=== PATIENT | female | born 1975 | race Caucasian/White ===

== ENCOUNTER 2017-05-16 14:25 | Observation (INO) ==
[2017-05-16 15:20] LABS: Basophils % 0.5 %; Eosinophils # 0.1 K/mcL (0.0-0.6); Eosinophils % 1.6 %; Hematocrit 44.3 % (35.3-44.9); Hemoglobin 14.6 g/dL (11.5-15.4); Immature Granulocytes % 0.2 % (0-4); Lymphocytes # 2.9 K/mcL (0.6-4.6); Lymphocytes % 33.3 %; Mean Corpuscular Hemoglobin 27.1 pg (28.0-33.3); Mean Corpuscular Volume 82.2 fL (83.0-100.0); Monocytes # 0.5 K/mcL (0.0-1.3); Monocytes % 5.2 %; Neutrophils # 5.2 K/mcL (1.6-8.9); Platelet Count 180 K/mcL (140-400); Red Blood Count 5.39 M/mcL (3.82-4.97); Red Cell Distribution Width 13.5 % (11.5-14.5); Segmented Neutrophils % 59.2 %
[2017-05-16 15:33] LABS: BUN/Creatinine Ratio 21 (6-26); Blood Urea Nitrogen 18 mg/dL (7-20); Calcium 9.7 mg/dL (8.6-10.8); Carbon Dioxide 27 mEq/L (19-29); Chloride 98 mEq/L (98-109); Glucose 370 mg/dL (70-99); Osmolality,Calculated 293 (280-300); Potassium 4.3 mEq/L (3.5-4.5); Sodium 133 mEq/L (136-145); eGFR For African Americans > 60 (> 60); eGFR For Non-African Americans > 60 (> 60)
[2017-05-16 15:41] LABS: INR 1.8; Prothrombin Time 19.9 Seconds (9.4-12.1)
[2017-05-16 15:44] LABS: Activated Partial Thrombo Time 32.1 Seconds (26.0-36.0)
[2017-05-16] MEDS ORDERED: Aspirin 81 MG TAB.CHEW PO ONE (16:12)
--- NOTE | 2017-05-16 16:41 | Emergency Department Note ---
Disposition Clinical Impression: Unstable angina Disposition: Admitted As Inpatient Referrals: Norris Franz MD [Primary Care Provider] - Forms: ED Satisfaction Letter Chest Pain HPI - General Chief Complaint: ED Chest Pain Stated Complaint: chest pain Time Seen by Provider: 05/16/17 14:39 Source: patient Limitations: no limitations Vital Signs Reviewed: Yes Nursing Notes Reviewed: Yes - History of Present Illness Pt complaint: chest pain Onset (ago): hour(s) (2) Duration: constant Onset: during rest Pain Location: left chest Severity scale (1-10): 9 Quality: heaviness Pain Radiation: none Improves with: nitroglycerin Worsens with: nothing Associated symptoms: Denies: nausea, vomiting, diaphoresis - Related Data Home Medications Medication Instructions Recorded Confirmed Acetaminophen/Butalbital/Caffe 1 each PO 02/19/16 [Fioricet] Atorvastatin Calcium [Lipitor] 02/19/16 Cyclobenzaprine [Flexeril] 02/19/16 Diclofenac Sodium [Voltaren] 1 appl TP QID 02/19/16 02/19/16 Duloxetine HCl [Cymbalta] 60 mg PO 02/19/16 Ergocalciferol (VITAMIN D2) 50,000 unit PO 02/19/16 [Vitamin D2 (50,000 UNIT)] Esomeprazole Magnesium [Nexium] 20 mg PO 02/19/16 Furosemide [Lasix] 20 mg PO 02/19/16 Gabapentin [Neurontin] 400 mg PO 02/19/16 Insulin ASPART [Novolog Flexpen] 100 unit SQ 02/19/16 Insulin Glargine,Hum.rec.anlog 100 unit SQ 02/19/16 [Lantus Solostar] Levothyroxine [Synthroid] 125 mcg PO 02/19/16 Liraglutide [Victoza 2-Raphael] 02/19/16 02/19/16 Loratadine [Claritin] 10 mg PO 02/19/16 Metoprolol [Lopressor] 25 mg PO 02/19/16 Nitroglycerin [Nitrostat] 0.6 mg SL 02/19/16 Promethazine [Phenergan] 25 mg PO 02/19/16 Ranitidine HCl [Zantac] 150 mg PO 02/19/16 Trazodone HCl 150 mg PO 02/19/16 Warfarin [Coumadin] 5 mg PO 02/19/16 Previous Rx's Medication Instructions Recorded Diclofenac Sodium [Voltaren] 1 appl TP QID PRN #100 gm 02/19/16 traMADol [Ultram] 50 mg PO QID PRN #16 tablet 04/22/16 OxyCODONE/APAP 5/325 [Percocet 1 each PO Q6HR #6 tablet 08/11/16 5/325 MG] traMADol [Ultram] 50 mg PO TID #10 tablet 09/22/16 Oxycodone HCl/Acetaminophen 1 - 2 each PO Q6H PRN #15 tablet 11/04/16 [Percocet 5-325 mg Tablet] Morphine Immed Rel [Morphine 30 mg PO Q8HR #9 tablet 02/08/17 Sulfate] Ondansetron HCl [Zofran] 4 mg PO Q8HR PRN #15 tablet 04/18/17 OxyCODONE/APAP 5/325 [Percocet 1 each PO Q6HR PRN #8 tablet 04/18/17 5/325 MG] Allergies Allergy/AdvReac Type Severity Reaction Status Date / Time hydrocodone [From Vicodin] Allergy Swelling Verified 04/21/17 19:19 of Lip/Tongue/Throat All systems ED: reviewed and negative except as stated. Constitutional: Denies: fever, chills, weakness Gastrointestinal: Denies: nausea, vomiting Chest Pain PMH - Past Medical History Medical history: Reports: atrial fibrillation, DVT, diabetes, hypertension, pulmonary embolus, thyroid disease Surgical history: Reports: herniorrhaphy, orthopedic, other, other Psychiatric history: Reports: anxiety, depression [employer] history: Reports: no [employer] history - Social History Smoking Status: Never smoker Alcohol use: Reports: none Drug use: Reports: none Physical Exam - General Limitations: no limitations General appearance: alert, in no apparent distress - Head Head exam: atraumatic, normocephalic, normal inspection - Eye Eye exam: Present: normal appearance, PERRL, EOMI - Expanded Eye Exam Pupils: Left: reactive - ENT ENT exam: normal exam, normal oropharynx, mucous membranes moist - Expanded ENT Exam External ear exam: Present: normal external inspection Mouth exam: Present: normal external inspection Teeth exam: Present: normal inspection Throat exam: Present: normal inspection - Neck Neck exam: Present: normal inspection, full ROM, trachea midline - Chest Chest inspection: Present: normal inspection, symmetric chest wall rise - Respiratory Respiratory exam: Present: normal lung sounds bilaterally - Cardiovascular Cardiovascular exam: Present: regular rate, normal rhythm, normal heart sounds - Abdominal Exam Abdominal exam: Present: soft, Non-Tender. Absent: tenderness, distention, guarding, rebound, rigidity - Extremities Exam Extremities exam: Present: normal inspection, full ROM. Absent: tenderness, pedal edema - Expanded Upper Extremity Exam Shoulder exam: Present: normal inspection, full ROM Arm exam: Present: normal inspection, full ROM Elbow exam: Present: normal inspection, full ROM Forearm/Wrist exam: Present: normal inspection, full ROM Hand exam: Present: normal inspection, full ROM Vascular exam: Normal: capillary refill, radial pulse - Expanded Lower Extremity Exam Hip/Pelvis exam: Present: normal inspection, full ROM Upper leg exam: Present: normal inspection, full ROM Knee exam: Present: normal inspection, full ROM Lower leg exam: Present: normal inspection, full ROM Ankle exam: Present: normal inspection, full ROM Foot/toe exam: Present: normal inspection, full ROM Neurovascular/Tendon exam: Absent: motor deficit, sensory deficit, tendon deficit - Back Exam Back exam: Present: normal inspection, full ROM. Absent: tenderness - Neurological Exam Neurological exam: Present: alert, oriented X3 - Expanded Neurological Exam Patient oriented to: Present: person, place, time Coma Scale Eye Opening: Spontaneous Coma Scale Motor Response: Obeys Commands Coma Scale Verbal Response: Oriented Coma Scale Total: 15 - Psychiatric Psychiatric exam: Present: normal affect, normal mood - Skin Skin exam: Present: warm, dry, intact, normal color Course - Consultations Consultation #1: dr. chatterjee, hold coumadin [facility] tomorrow Time: 16:40 Vital Signs Temperature 99.0 F 05/16/17 14:28 Pulse Rate 84 05/16/17 14:28 Respiratory Rate 18 05/16/17 14:28 Blood Pressure 126/81 05/16/17 14:28 O2 Sat by Pulse Oximetry 97 05/16/17 14:28 Temperature 99.0 F 05/16/17 14:28 Pulse Rate 84 05/16/17 14:28 Respiratory Rate 18 05/16/17 14:28 Blood Pressure 126/81 05/16/17 14:28 O2 Sat by Pulse Oximetry 97 05/16/17 15:14 Oxygen Delivery Oxygen Delivery Room Air Chest Pain - Medical Records Medical records reviewed: Yes I reviewed the patient's medical records. - Lab Data Lab results reviewed: Yes I reviewed the patient's lab results. Result diagrams: 05/16/17 15:15 05/16/17 15:15 Lab Results 05/16/17 05/16/17 05/16/17 Range/Units 15:15 15:15 15:15 WBC 8.8 (4.3-11.1) K/mcL RBC 5.39 H (3.82-4.97) M/mcL Hgb 14.6 (11.5-15.4) g/dL Hct 44.3 (35.3-44.9) % MCV 82.2 L (83.0-100.0) fL MCH 27.1 L (28.0-33.3) pg MCHC 33.0 (31.6-35.5) g/dL RDW 13.5 (11.5-14.5) % Plt Count 180 (140-400) K/mcL MPV 12.0 (9.4-12.4) fL Immature Gran % 0.2 (0-4) % Seg Neutrophils % 59.2 % Lymphocytes % 33.3 % Monocytes % 5.2 % Eosinophils % 1.6 % Basophils % 0.5 % Neutrophils # 5.2 (1.6-8.9) K/mcL Lymphocytes # 2.9 (0.6-4.6) K/mcL Monocytes # 0.5 (0.0-1.3) K/mcL Eosinophils # 0.1 (0.0-0.6) K/mcL Basophils # 0.0 (0.0-0.2) K/mcL PT 19.9 H (9.4-12.1) Seconds INR 1.8 APTT 32.1 (26.0-36.0) Seconds Sodium 133 L (136-145) mEq/L Potassium 4.3 (3.5-4.5) mEq/L Chloride 98 (98-109) mEq/L Carbon Dioxide 27 (19-29) mEq/L BUN 18 (7-20) mg/dL Creatinine 0.85 (0.57-1.11) mg/dL Est GFR ( Amer) > 60 (> 60) Est GFR (Non-Af Amer) > 60 (> 60) BUN/Creatinine Ratio 21 (6-26) Glucose 370 H (70-99) mg/dL Calculated Osmolality 293 (280-300) Calcium 9.7 (8.6-10.8) mg/dL Troponin I (0-0.03) ng/mL 05/16/17 Range/Units 15:15 WBC (4.3-11.1) K/mcL RBC (3.82-4.97) M/mcL Hgb (11.5-15.4) g/dL Hct (35.3-44.9) % MCV (83.0-100.0) fL MCH (28.0-33.3) pg MCHC (31.6-35.5) g/dL RDW (11.5-14.5) % Plt Count (140-400) K/mcL MPV (9.4-12.4) fL Immature Gran % (0-4) % Seg Neutrophils % % Lymphocytes % % Monocytes % % Eosinophils % % Basophils % % Neutrophils # (1.6-8.9) K/mcL Lymphocytes # (0.6-4.6) K/mcL Monocytes # (0.0-1.3) K/mcL Eosinophils # (0.0-0.6) K/mcL Basophils # (0.0-0.2) K/mcL PT (9.4-12.1) Seconds INR APTT (26.0-36.0) Seconds Sodium (136-145) mEq/L Potassium (3.5-4.5) mEq/L Chloride (98-109) mEq/L Carbon Dioxide (19-29) mEq/L BUN (7-20) mg/dL Creatinine (0.57-1.11) mg/dL Est GFR ( Amer) (> 60) Est GFR (Non-Af Amer) (> 60) BUN/Creatinine Ratio (6-26) Glucose (70-99) mg/dL Calculated Osmolality (280-300) Calcium (8.6-10.8) mg/dL Troponin I 0.00 (0-0.03) ng/mL - Radiology Data Radiology results reviewed: Yes I reviewed the patient's radiology results. - EKG Data EKG shows normal: sinus rhythm Rate: normal (81) Rhythm: NSR Anton/QRS: left axis deviation, RBBB
[2017-05-16] MEDS ORDERED: Aspirin 325 MG TABLET PO ONE (19:33)
[2017-05-16] MEDS ORDERED: *HR* OxyCODONE/APAP 5/325 TABLET PO PRN (19:34)
[2017-05-16] MEDS ORDERED: tiZANidine 4 MG TABLET PO PRN (19:34)
[2017-05-16] MEDS ORDERED: Nitroglycerin 0.4 MG TAB.SUBL SL PRN (19:34)
[2017-05-16] MEDS ORDERED: Dextrose Gel 15 GM PO PRN ×2 (19:36)
[2017-05-16] MEDS ORDERED: D5% in Water 1,000 ML IVC PRN (19:36)
[2017-05-16] MEDS ORDERED: *HR* Dextrose 50 % in Water (Syg) 50 ML SYRINGE IVP PRN (19:36)
[2017-05-16] MEDS ORDERED: Naloxone 0.4 MG/ML INJ IVP PRN (19:38)
[2017-05-16] MEDS ORDERED: *HR* Morphine 2 MG/ML SYRINGE IVP PRN (19:38)
--- NOTE | 2017-05-16 19:53 | Internal Med History&Physical ---
Date of Encounter: 05/16/17 Time of Encounter: 19:20 Assessment and Plan (1) Unstable angina Current visit: Yes Status: Acute Given current findings of stress test, will admit to r/o ACS likely to undergo LHC in am will trend serial TNI follow up cardiology consultation ASA 325mg PO and Lipitor 80mg PO given holding Coumadin until after LHC Nitro SL prn chest pain Morphine 2mg IV PRN severe pain/pain refractory to nitro SL O2 supplementation tele monitoring NPO after midnight (2) Atrial fibrillation Current visit: Yes Status: Chronic Rate currently controlled, no rate control medications listed as per her home med list Anticoagulated with Coumadin will hold Coumadin at this time until cardiology evaluation Qualifiers: Atrial fibrillation type: chronic Qualified Code(s): I48.2 - Chronic atrial fibrillation (3) Pulmonary embolism Current visit: Yes Status: Chronic will resume anticoagulation after cardiology evaluation s/p IVC filter Qualifiers: Pulmonary embolism type: other Chronicity: chronic Acute cor pulmonale presence: without acute cor pulmonale Qualified Code(s): I27.82 - Chronic pulmonary embolism (4) DVT (deep venous thrombosis) Current visit: Yes Status: Chronic will resume anticoagulation after cardiology evaluation SCD for DVT ppx at this time Qualifiers: DVT location: lower extremity Affected thrombotic vein of extremity: unspecified vein of extremity Chronicity: chronic Laterality: left Qualified Code(s): I82.502 - Chronic embolism and thrombosis of unspecified deep veins of left lower extremity (5) Diabetes mellitus Current visit: Yes Status: Chronic Will resume home dose of Levemir 33units BID added sliding scale insulin coverage as needed accuchecks ACHS Qualifiers: Diabetes mellitus type: type 2 Diabetes mellitus complication status: with unspecified complications Diabetes mellitus detention insulin use: with travel service consultant use Qualified Code(s): E11.8 - Type 2 diabetes mellitus with unspecified complications; Z79.4 - half-way (current) use of insulin (6) Hypertension Current visit: Yes Status: Chronic BP within acceptable range continue home medications Qualifiers: Hypertension type: essential hypertension Qualified Code(s): I10 - Essential (primary) hypertension (7) HLD (hyperlipidemia) Current visit: Yes Status: Chronic follow up lipid panel continue statin therapy Qualifiers: Hyperlipidemia type: unspecified Qualified Code(s): E78.5 - Hyperlipidemia , unspecified (8) Hypothyroidism Current visit: Yes Status: Chronic continue levothyroxine Qualifiers: Hypothyroidism type: unspecified Qualified Code(s): E03.9 - Hypothyroidism , unspecified (9) Morbid obesity Current visit: Yes Status: Chronic Qualifiers: Obesity type: unspecified obesity type Qualified Code(s): E66.01 - Morbid ( severe) obesity due to excess calories Internal Medicine - H&P: HPI Chief complaint: chest pain Admitted From: Home Plans for Post Hospital Care: Home History of present illness: Ms. Resendiz is a 41 year old female with PMH Of Atrial fibrillation on anticoagulation, PE s/p IVC filter, LLE DVT, HTN, DM, HLD, Hypothyroidism, and Morbid obesity who presents to the ER for evaluation of left sided chest pain. The pain started mid afternoon while the patient was at rest. Pain was localized to the left substernal chest wall associated with diaphoresis and shortness of breath. States she took nitroglycerin SL which relieved her chest pain intermittently but needed to take a 2nd SL nitroglycerin, after which she called EMS. She was recently seen by her salon manager on Monday due to history of recurrent chest pain. She had a Nuclear stress test on April which was concerning for CAD and further LHC was recommended. Patient was scheduled to get a LHC at [facility] in the near future however given the onset of chest pain she will likely undergo LHC during this admission. At this time she is resting in bed and reports of complete resolution of her chest pain. Reports of having chronic back pain for which she takes oxycodone at home. She is on coumadin for Afib and states she did not take her dose today. Denies any other discomfort at this time. Patient wishes to be full code. Denies any smoking history. Past Med Surg Social Fam HX - Past Medical History Medical history: atrial fibrillation, DVT, diabetes, hypertension, pulmonary embolus, thyroid disease Psychiatric history: anxiety, depression - Past Surgical History Surgical History: herniorrhaphy, orthopedic, other, other - Social History Smoking Status: Never smoker Smokeless Tobacco Status: No Alcohol use: none Drug use: none Internal Medicine - H&P: Meds Duloxetine HCl [Cymbalta] 60 mg PO BID 02/19/16 [History] Ergocalciferol (VITAMIN D2) [Vitamin D2 (50,000 UNIT)] 50,000 unit PO 2XW [History] Furosemide [Lasix] 20 mg PO DAILY 02/19/16 [History] Insulin ASPART [Novolog Flexpen] 0 unit SQ TID 02/19/16 [History] Liraglutide [Victoza 2-Raphael] 1.8 mg SQ DAILY 02/19/16 [History] Ranitidine HCl [Zantac] 150 mg PO BID 02/19/16 [History] Warfarin [Coumadin] 5 mg PO TU 02/19/16 [History] Atorvastatin [Lipitor] 10 mg PO HS 05/16/17 [History] Buspirone HCl [Buspar] 10 mg PO BID PRN 05/16/17 [History] Cetirizine HCl [Zyrtec] 10 mg PO DAILY 05/16/17 [History] Esomeprazole Magnesium [Nexium] 40 mg PO DAILY 05/16/17 [History] Gabapentin [Neurontin] 600 mg PO TID 05/16/17 [History] Insulin Glargine,Hum.rec.anlog [Toujeo Solostar] 33 units SQ BID 05/16/17 [ History] Levothyroxine [Synthroid] 150 mcg PO DAILY 05/16/17 [History] Losartan Potassium [Cozaar] 50 mg PO DAILY 05/16/17 [History] Nitroglycerin [Nitrostat] 0.4 mg SL Q5M PRN 05/16/17 [History] Omeprazole [PriLOSEC] 40 mg PO DAILY PRN 05/16/17 [History] Oxycodone HCl/Acetaminophen [Percocet 5-325 mg Tablet] 1 each PO Q6H PRN [History] Tizanidine HCl [Zanaflex] 4 mg PO Q12H PRN 05/16/17 [History] Topiramate [Topamax] 50 mg PO BID 05/16/17 [History] Warfarin [Coumadin] 7.5 mg PO SUMOWETHFRSA 05/16/17 [History] Allergies hydrocodone [From Vicodin] Allergy (Verified 04/21/17 19:19) Swelling of Lip/Tongue/Throat All Systems PM: A 10-system review of systems was performed and is negative for pertinent findings except as documented above in the HPI. - Constitutional Constitutional: as per HPI - Constitutional Vitals: Temp Pulse Resp BP Pulse Ox 97.8 F 80 21 101/67 97 05/16/17 19:03 05/16/17 19:03 05/16/17 19:03 05/16/17 19:03 05/16/17 19:03 General appearance: Present: cooperative, A&O X 3, morbidly obese, no acute distress, answers questions appropriately - Head Head exam: Present: atraumatic, normocephalic - Eye Eye exam: Present: normal appearance, conjuntiva pink, sclera anicteric - Respiratory Respiratory exam: Present: CTAB. Absent: accessory muscle use, rales, rhonchi, wheezes - Cardiovascular Cardiovascular exam: Present: RRR, +S1, +S2. Absent: diastolic murmur, gallop, rubs, systolic murmur - GI/Abdominal GI/Abdominal exam: Present: normal bowel sounds, soft, no peritoneal signs. Absent: distended, tenderness - Extremities Exam Extremities exam: Present: warm, radial pulses palpable and symetrical. Absent : calf tenderness, pedal edema - Neurological Exam Neurological exam: Present: alert, oriented X3 - Psychiatric Psychiatric exam: Present: normal affect, normal mood Internal Med - H&P Results - Labs CBC & Chem 7: 05/16/17 15:15 05/16/17 15:15
[2017-05-16] MEDS: Gabapentin 300 MG CAPSULE PO SCH (20:07)
[2017-05-16] MEDS: Insulin LISPRO 300 UNITS/3 ML VIAL SQ SCH (20:33)
[2017-05-16] MEDS ORDERED: Famotidine 20 MG TABLET PO SCH (21:00)
[2017-05-16] MEDS: Insulin DETEMIR 100 UNIT/ML X5UNITS SQ SCH (21:17)
[2017-05-17] MEDS: Ondansetron 4 MG/2 ML VIAL IVP PRN ×3 (02:37→15:26)
[2017-05-17 03:39] LABS: INR 1.8; Prothrombin Time 19.9 Seconds (9.4-12.1)
[2017-05-17 03:49] LABS: Basophils % 0.4 %; Eosinophils # 0.1 K/mcL (0.0-0.6); Eosinophils % 1.5 %; Hematocrit 45.4 % (35.3-44.9); Hemoglobin 14.7 g/dL (11.5-15.4); Immature Granulocytes % 0.4 % (0-4); Lymphocytes % 27.4 %; Mean Corpuscular HGB Conc 32.4 g/dL (31.6-35.5); Mean Corpuscular Volume 83.5 fL (83.0-100.0); Mean Platelet Volume 12.1 fL (9.4-12.4); Monocytes # 0.4 K/mcL (0.0-1.3); Monocytes % 5.3 %; Neutrophils # 4.7 K/mcL (1.6-8.9); Platelet Count 185 K/mcL (140-400); Red Blood Count 5.44 M/mcL (3.82-4.97); Red Cell Distribution Width 13.5 % (11.5-14.5)
[2017-05-17 03:51] LABS: BUN/Creatinine Ratio 18 (6-26); Blood Urea Nitrogen 16 mg/dL (7-20); Calcium 9.4 mg/dL (8.6-10.8); Carbon Dioxide 28 mEq/L (19-29); Chloride 99 mEq/L (98-109); Cholesterol 186 mg/dL (< 200); Glucose 330 mg/dL (70-99); HDL Cholesterol 47 mg/dL (40-59); LDL Cholesterol,Calculated 103 mg/dL (0-99); Magnesium 1.7 mg/dL (1.6-2.6); Osmolality,Calculated 292 (280-300); Phosphorous 3.6 mg/dL (2.3-4.7); Potassium 4.5 mEq/L (3.5-4.5); Sodium 134 mEq/L (136-145); Triglycerides 182 mg/dL (< 150); eGFR For African Americans > 60 (> 60); eGFR For Non-African Americans > 60 (> 60)
[2017-05-17] MEDS: Loratadine 10 MG TABLET PO SCH (08:19)
[2017-05-17] MEDS: Furosemide 20 MG TABLET PO SCH (08:19)
[2017-05-17] MEDS: Gabapentin 300 MG CAPSULE PO SCH ×3 (08:19→20:25)
[2017-05-17] MEDS: Insulin LISPRO 300 UNITS/3 ML VIAL SQ SCH ×4 (08:35→20:26)
[2017-05-17] MEDS: Insulin DETEMIR 100 UNIT/ML X5UNITS SQ SCH ×2 (08:46→20:25)
--- NOTE | 2017-05-17 09:17 | Cardiology Consult Note ---
Date of Encounter: 05/17/17 Time of Encounter: 08:20 Assessment and Plan (1) Chest pain Current Visit: Yes Status: Acute Atypical chest pain symptoms. Troponin negative x3, no acute ischemic ECG changes. Recent abnormal stress test as outpatient; patient initially elected to have LHC at [facility], however given recurrence of chest pain she has elected to stay at [facility]. Perfusion defects--medium, mild-moderate intensity basal-apical inferior wall and basal-apical anterior wall and apex; mild TID noted. Chest pain free upon exam. Agree with increase in statin. Will start asa-81 mg and betablocker. Risk factors for CAD include: DMII, HTN, and morbid obesity. Recommend LHC with possible PCI; alternatives, risks, and benefits discussed, she is agreeable to proceed. Further recommendations to follow. Qualifiers: Chest pain type: precordial pain Qualified Code(s): R07.2 - Precordial pain (2) Abnormal stress test Current Visit: Yes Status: Acute Plan as stated above. (3) Pulmonary embolism Current Visit: Yes Status: Chronic Hx of DVT/PE in the post operative setting in 2005; s/p yuliana filter and pulmonary embolectomy Has been on coumadin therapy, INR followed by [facility]. INR 1.8 today, continue to hold coumadin in preparation for LHC. Qualifiers: Pulmonary embolism type: other Chronicity: chronic Acute cor pulmonale presence: without acute cor pulmonale Qualified Code(s): I27.82 - Chronic pulmonary embolism Discussion w patient/family: The assessment and plan as outlined above was discussed with the patient and/or family members who expressed understanding and agreement. All questions were answered. Thank you for involving us in the care of your patient. Please call with any questions. The patient will be discussed and reviewed with Dr. Cevallos; changes to be made accordingly. History of Present Illness Consult date: 05/17/17 Requesting physician: Jennifer Gross Consult reason: Chest pain/abnormal stress Chief complaint: Chest pain History of present illness: Ms. Resendiz is a 41 year old female with PMHx significant for DVT/PE (massive PE requiring pulmonary embolectomy--post op setting 2005), morbid obesity, HTN, DMII, and hypothyroidism that presented to the ED with 1-day history of worsening non-radiating left-sided chest discomfort; pain is described as sharp and heavy. Associated symptoms include shortness of breath. Symptoms typically occur at rest but have also been provoked by stress. Recent outpatient stress test was found to be abnormal, had planned to have LHC at [facility]. Upon arrival to ED, troponin was negative, no ischemic ECG changes noted. Recent CV testing: TTE 04/28/17: LVEF 55%, normal wall motion Regadenoson nuclear (2-day) 04/28/17: gated EF=62%, medium size, mild- intensity reversible perfusion defect involving the basal-apical inferior wall, basal-apical anterior wall and apex; findings consistent with reversible myocardial ischemia, mild TID. Past Med Surg Social Fam HX - Past Medical History Attestation: Yes The following information was validated with the patient. Source: patient Medical history: DVT, diabetes, hypertension, pulmonary embolus, thyroid disease Psychiatric history: anxiety, depression - Past Surgical History Surgical History: herniorrhaphy, orthopedic, other - Social History Smoking Status: Never smoker Smokeless Tobacco Status: No Alcohol use: none Drug use: none - Family History Mother Hx Family Cardiac Disorders: Yes (heart disease) Sister Hx Family Cardiac Disorders: Yes (CHF) Father History Unknown: Yes Medications and Allergies Duloxetine HCl [Cymbalta] 60 mg PO BID 02/19/16 [History] Ergocalciferol (VITAMIN D2) [Vitamin D2 (50,000 UNIT)] 50,000 unit PO 2XW [History] Furosemide [Lasix] 20 mg PO DAILY 02/19/16 [History] Insulin ASPART [Novolog Flexpen] 0 unit SQ TID 02/19/16 [History] Liraglutide [Victoza 2-Raphael] 1.8 mg SQ DAILY 02/19/16 [History] Ranitidine HCl [Zantac] 150 mg PO BID 02/19/16 [History] Warfarin [Coumadin] 5 mg PO TU 02/19/16 [History] Atorvastatin [Lipitor] 10 mg PO HS 05/16/17 [History] Buspirone HCl [Buspar] 10 mg PO BID PRN 05/16/17 [History] Cetirizine HCl [Zyrtec] 10 mg PO DAILY 05/16/17 [History] Esomeprazole Magnesium [Nexium] 40 mg PO DAILY 05/16/17 [History] Gabapentin [Neurontin] 600 mg PO TID 05/16/17 [History] Insulin Glargine,Hum.rec.anlog [Toujeo Solostar] 33 units SQ BID 05/16/17 [ History] Levothyroxine [Synthroid] 150 mcg PO DAILY 05/16/17 [History] Losartan Potassium [Cozaar] 50 mg PO DAILY 05/16/17 [History] Nitroglycerin [Nitrostat] 0.4 mg SL Q5M PRN 05/16/17 [History] Omeprazole [PriLOSEC] 40 mg PO DAILY PRN 05/16/17 [History] Oxycodone HCl/Acetaminophen [Percocet 5-325 mg Tablet] 1 each PO Q6H PRN [History] Tizanidine HCl [Zanaflex] 4 mg PO Q12H PRN 05/16/17 [History] Topiramate [Topamax] 50 mg PO BID 05/16/17 [History] Warfarin [Coumadin] 7.5 mg PO SUMOWETHFRSA 05/16/17 [History] Allergies hydrocodone [From Vicodin] Allergy (Verified 04/21/17 19:19) Swelling of Lip/Tongue/Throat All Systems Review: A 10-system review of systems was performed and is negative for pertinent findings except as documented above in the HPI. - Cardiovascular Cardiovascular: as per HPI Physical Examination Vital Signs, Last 4 Hours Temp Pulse Resp BP Pulse Ox 05/17/17 07:26 97.7 F 71 17 109/75 97 General: Conversant, No Apparent Distress, Other (morbidly obese) HEENT: Atraumatic, Normocephaly Cardiac: Reg Rate and Rhythm, Normal S1 and S2 Lungs: Normal Breath Sounds Neuro: Alert and responsive Abdomen: Soft Skin: No rashes noted on visualized skin Musculoskeletal: No Chest Wall Tenderness Extremities: No Edema, Normal Pulses Results 05/17/17 03:26 05/17/17 03:26 Lab Results 05/16/17 05/17/17 05/17/17 20:30 03:26 03:26 WBC 7.2 Hgb 14.7 Hct 45.4 H Plt Count 185 INR Sodium Potassium Chloride Carbon Dioxide BUN Creatinine Glucose Calcium Magnesium Troponin I 0.00 0.00 05/17/17 05/17/17 03:26 03:26 WBC Hgb Hct Plt Count INR 1.8 Sodium 134 L Potassium 4.5 Chloride 99 Carbon Dioxide 28 BUN 16 Creatinine 0.90 Glucose 330 H Calcium 9.4 Magnesium 1.7 Troponin I - Imaging and Cardiology Stress Test: report reviewed Echo: report reviewed Other Results: 12 hour tele: avg HR=70 SR. No significant event noted. - EKG Interpretation EKG results cardiology: personally reviewed Consult Discharge Plan - Plan Referrals: Norris Franz MD [Primary Care Provider] -
[2017-05-17] MEDS: Aspirin 81 MG TAB.CHEW PO SCH (10:28)
[2017-05-17] MEDS: Famotidine 20 MG TABLET PO SCH ×2 (10:36→15:29)
[2017-05-17] MEDS ORDERED: Verapamil 5 MG/2 ML VIAL ONE (11:03)
[2017-05-17] MEDS ORDERED: Heparin 1,000 UNITS/500 mL NS 500 ML ONE (11:03)
[2017-05-17] MEDS ORDERED: 0.9 % Sodium Chloride 1,000 ML ONE ×2 (11:03→11:20)
[2017-05-17] MEDS ORDERED: Nitroglycerin 1,000 MCG/10 ML VIAL IV ONE (11:04)
[2017-05-17] MEDS ORDERED: *HR* Heparin 10,000 UNIT/10 ML VIAL ONE (11:04)
--- NOTE | 2017-05-17 11:16 | Pre-Sedation Evaluation ---
Pre-sedation evaluation - Pre-sedation checklist Date of procedure: 05/17/17 Procedure: Heart Cath Recent Vitals: Last Vital Signs Temp 97.8 F 05/17/17 10:57 Pulse 71 05/17/17 10:57 Resp 18 05/17/17 10:57 BP 122/83 05/17/17 10:57 Pulse Ox 96 05/17/17 10:57 H&P (including ROS) documented in medical record: Yes Previous reaction to sedatives/anesthetics: Yes; explain in comment Dietary Status: Clear fluids after Midnight Dentition: No loose teeth or bridges ASA Classification *see protocol: CLASS II-Mild systemic disease Plan of Care: Pt appropriate candidate for procedure/moderate/conscious sedation , Risks/benefits of procedure/sedation discussed w/ patient/family
[2017-05-17] MEDS ORDERED: *HR* Midazolam HCl 5 MG/5 ML VIAL IVP ONE (11:20)
[2017-05-17] MEDS ORDERED: *HR* FentaNYL (PF) 100 MCG/2 ML VIAL ONE (11:20)
[2017-05-17] MEDS ORDERED: Nitroglycerin Spray 4.9 GM BOTTLE ONE (11:46)
--- NOTE | 2017-05-17 12:54 | Event Note ---
Date of Encounter: 05/17/17 Time of Encounter: 12:40 - Cardiology Event Note [facility]: minimal, non-obstructive CAD. Will defer further evaluation to primary service to determine non-cardiac causes of chest pain. Risk factor modification recommended including heart healthy diet and daily exercise. Continue asa, statin, and betablocker. Will coordinate outpatient follow-up with Dr. Bah s/p [facility].
[2017-05-17] MEDS ORDERED: Acetaminophen 325 MG TABLET PO PRN (12:56)
[2017-05-17] MEDS ORDERED: Ondansetron 4 MG/2 ML VIAL ONE (13:34)
--- NOTE | 2017-05-17 14:21 | Invasive Diagnostic Lab Proc ---
Name: Cristina Resendiz Date of Study: 05/17/2017 Date: 1975 Ht: 66.0in Medical Record#: [id number] Age: 41 Wt: 302.69lb Gender: Female BSA: 2.38 Order #: [id number] BMI: 48.88 Physicians Procedure Physician: Kit Mitchell MD, FACC Referring MD: Referring MD: Staff Name Position Time In Anum Cooney RN Monitor 11:32 AM Meli Carver RN Filling Winder 11:32 AM Marii Ibarra RT (R) 11:32 AM Campos Denney RT (R) Scrub 11:32 AM Indications Indication Abnormal Test - Stress Procedures Performed Procedure L HRT ARTERY/VENTRICLE ANGIO Pre-Procedure Checklist Informed consent is complete signed and on chart. H\\T\\P is on chart. ID band is on and ID verified with patient. Patient NPO for procedure The procedure was described for the patient and questions were answered. Blood Pressure: 109/75 ECG is on chart. Rhythm: NSR Plan of Care Patient will tolerate the procedure without complications. Adequate level of comfort will be maintained. Hemodynamics will remain stable Patient will recover from procedure without complications. Respiratory function will be maintained. Cardiac rhythm will remain stable. Patient temperature will be maintained. Patient and/or family have verbalized understanding of the procedure. Patient Education Chief Complaint/Reason for Test: Cardiac Cath Developmental Category: Adult (18-64 years) Developmentally Appropriate for Age: Yes Learning Barriers: None Education Needs: Procedure Education Method: Verbal Information Taught: Cardiac Cath Educational Evaluation: Able to repeat information Intravenous Access Time IV Size Location DC'd Fluid/Drip Rate Units RN 09:46 AM 20g 1 1/" Patent On Arrival Rt Arm 0.9NaCl 25 ml/hr Meli Carver RN Allergies acetaminophen ACETA/HYDROCODONE (500MG/5MG) VICODIN hydrocodone Vital Signs Time BP (mmHg) HR (bpm) O2 Sat. RR (bpm) LOC 09:47 AM 109 / 75 71 97 % 17 5 = Fully awake and oriented or at pre-proc level 11:34 AM / % 5 = Fully awake and oriented or at pre-proc level 11:34 AM / % 4 = Oriented but drowsy 11:49 AM / % 4 = Oriented but drowsy 12:09 PM / % 4 = Oriented but drowsy 11:32 AM 143 / 90 78 98 % 14 11:35 AM 140 / 85 73 93 % 21 11:38 AM 139 / 90 255 92 % 35 11:41 AM 137 / 88 73 97 % 16 11:44 AM 136 / 90 77 98 % 19 11:47 AM 142 / 86 75 97 % 19 11:50 AM 134 / 82 86 96 % 20 11:53 AM 125 / 75 82 96 % 34 11:56 AM 121 / 75 76 97 % 17 11:59 AM 124 / 77 77 95 % 12:02 PM 129 / 79 77 96 % 20 12:05 PM 126 / 78 74 96 % 12:08 PM 126 / 71 117 96 % 27 12:12 PM 139 / 64 75 95 % 35 12:14 PM 131 / 68 74 96 % 25 12:17 PM 143 / 70 74 96 % 32 12:20 PM 129 / 71 75 96 % 12:23 PM 144 / 72 75 96 % 22 01:04 PM 152 / 85 70 94 % 16 4 = Oriented but drowsy 01:15 PM 155 / 90 71 96 % 20 4 = Oriented but drowsy 01:29 PM 155 / 96 70 96 % 17 4 = Oriented but drowsy 02:00 PM 156 / 93 69 95 % 16 4 = Oriented but drowsy 02:14 PM 171 / 99 70 96 % 16 4 = Oriented but drowsy Procedural Medications Time Medication Dose Units Method Given By 11:33 AM Oxygen 2 L/min nasal cannula Meli Carver RN 11:33 AM Versed 2 mg Intravenous Meli Carver RN 11:33 AM Fentanyl 50 mcg Intravenous Meli Carver RN 11:36 AM Oxygen 6 L/min nasal cannula Meli Carver RN 11:38 AM Oxygen 6 L/min Oxy Mask Meli Carver RN 11:45 AM Lidocaine 2% 0.5 ml Subcutaneous Kit Mitchell MD, FACC 11:46 AM Nitroglycerin 0.04 mcg Sublingual Meli Carver RN 11:48 AM Heparin 4000 units Nitroglycerin 200 mcg Verapamil 2.5 mg Intraarterial Kit Mitchell MD, FACC 12:12 PM Lidocaine 2% 0.5 ml Subcutaneous Kit Mitchell MD, FACC 12:15 PM Nitroglycerin 0.4 mcg Sublingual Meli Carver RN 12:17 PM Lidocaine 2% 19 ml Subcutaneous Kit Mitchell MD, FACC ASA Classification: CLASS II- Mild systemic disease (i.e. well-controlled diabetes, hypertension, asthma, cigarette smoking) Isis Score Preprocedure Postprocedure Activity 2- Moves 4 extremities sustained head lift Activity 2- Moves 4 extremities sustained head lift Circulation 2- SBP +/= 20 points of pre-anesthetic level Circulation 2- SBP +/= 20 points of pre-anesthetic level Consciousness 2- Awake and alert oriented x 3 Consciousness 2- Awake and alert oriented x 3 O2 Saturation 2- Able to maintain O2 satruation of 92% on room air O2 Saturation 2- Able to maintain O2 satruation of 92% on room air Respiratory 2- Able to deep breathe and cough well Respiratory 2- Able to deep breathe and cough well Total Score 10 Total Score 10 Contrast Agent: Isovue Diagnostic Contrast: 61 ml Total Contrast: 61 ml Fluoro Dose: 808 mGy Activated Clotting Time Time Seconds to Clot 12:27 PM 205 01:38 PM 147 Procedure Log Time Note Enter By 11:30 AM CathStat 11:30 AM Vitals capture started with the following parameters, Patient=Adult, Interval=3 min, Initial Mmimmnlb=038 mmHg, Deflation Rate=5 mmHg, Cuff placed on Right Arm 11:31 AM Vitals capture started with the following parameters, Patient=Adult, Interval=3 min, Initial Cjreveny=597 mmHg, Deflation Rate=5 mmHg, Cuff placed on Right Arm 11:31 AM 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 [facility]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 Anum Cooney RN Position: Monitor [facility]: :32 [facility] 11[facility] AM Meli Carver RN Position: Filling Winder Time in: 11:32 [facility] 11:32 AM HR=78 bpm, YZOY=245/90 mmhg, SpO2=98.0 %, Resp=14 B/min, Comment=Sinus Rhythm 11:32 AM aMrii Ibarra RT (R) Position: Time in: 11:32 [facility] 11:32 AM Campos Denney RT (R) Position: Scrub Time in: :32 [facility] 11:32 AM Patient charges- Angio tray pack, Navilyst 3mm J, Pulse Oximetry and ACIST tubing and transducer [facility] 11:32 AM Case Delayed No [facility] 11:33 AM Hair removed from procedure site in procedure lab using clippers. Right wrist prepped with Chloraprep by Marii Ibarra RT (R), safety strap applied then patient was draped. Skin intact. [facility] :33 AM Hair removed from procedure site in procedure lab using clippers. Right groin prepped with Chloraprep by Marii Ibarra), safety strap applied then patient was draped. Skin intact. [facility] : AM Physician arrived : [facility] : AM Meet and greet completed [facility] : AM Sign in performed according to hospital policy. [facility] : AM Procedure start : [facility] : AM ASA Class CLASS II- Mild systemic disease (i.e. well-controlled diabetes, hypertension, asthma, cigarette smoking) [facility] : AM Time: :33 Oxygen on at 2 L/min per nasal cannula by Meli Carver RN [facility] AM Time: :33 Versed 2 mg Intravenous Given by Meli Carver RN [facility] AM Time: :33 Fentanyl 50 mcg Intravenous Given by Meli Carver RN [facility] AM Time: :34 Patient comfortable and pain free: Yes [facility] AM Time: :34LOC: 5 = Fully awake and oriented or at pre-proc level [facility] : AM Clinical Presentation: Unstable angina [facility] :35 AM Recorded ECG: HR=76 Condition=Condition 1 11:35 AM HR=73 bpm, YYAD=194/85 mmhg, SpO2=93.0 %, Resp=21 B/min, Comment=Sinus Rhythm 11:36 AM Time: 11:36 Oxygen on at 6 L/min per nasal cannula by Meli Carver RN [facility] 11:37 AM Pressure channel 1 zeroed. 11:38 AM AH=088 bpm, GYBD=305/90 mmhg, SpO2=92.0 %, Resp=35 B/min, Comment=Sinus Rhythm 11:39 AM Time: 11:38 Oxygen on at 6 L/min per Oxy Mask by Meli Carver RN [facility] 11:41 AM HR=73 bpm, CCBL=477/88 mmhg, SpO2=97.0 %, Resp=16 B/min, Comment=Sinus Rhythm 11:44 AM HR=77 bpm, VQJB=516/90 mmhg, SpO2=98.0 %, Resp=19 B/min, Comment=Sinus Rhythm 11:44 AM Time out performed according to hospital policy [facility] 11:45 AM Time: 11:45 0.5 ml Lidocaine 2% to left radial Subcutaneous Given by Kit Mitchell MD, [facility] 11:47 AM Time: 11:46 Nitroglycerin 0.04 mcg Sublingual Given by Meli Carver RN [facility] 11:47 AM HR=75 bpm, YEDP=813/86 mmhg, SpO2=97.0 %, Resp=19 B/min, Comment=Sinus Rhythm 11:48 AM Access obtained by percutaneous puncture. 6Fr 10cm Terumo Glidesheath sheath placed in right Radial artery. [id number] lparsley 11:48 AM Time: 11:48 Patient given 4,000 units Heparin, 200 mcg Nitroglycerin, and 2.5 mg Verapamil Intraarterial by Kit Mitchell MD, [facility] lparsley 11:49 AM Time: 11:34 Patient comfortable and pain free: Yes [facility]ley 11:49 AM Time: 11:34LOC: 4 = Oriented but drowsy [facility] 11:50 AM 5Fr TIG catheter [facility] 11:50 AM 0.035 260cm Navilyst 3mmJ wire [id number] lparsley 11:50 AM HR=86 bpm, URRI=825/82 mmhg, SpO2=96.0 %, Resp=20 B/min, Comment=Sinus Rhythm 11:51 AM Catheter removed unable to engage l[facility]ley 11:51 AM 5Fr IM catheter inserted over the wire [id number] [facility] 11:53 AM HR=82 bpm, TKFL=099/75 mmhg, SpO2=96.0 %, Resp=34 B/min, Comment=Sinus Rhythm 11:54 AM Catheter removed unable to engage lparsley 11:55 AM 5Fr RBL 3.5 Convey guide catheter was used to cannulate the PCI vessel successfully. reused? No lparsley 11:56 AM Catheter removed unable to engage lparsley 11:56 AM HR=76 bpm, DVIV=278/75 mmhg, SpO2=97.0 %, Resp=17 B/min, Comment=Sinus Rhythm 11:56 AM IM catheter reinserted over the wire lparsley 11:57 AM Recorded Pressure: Ao, HR=76, Condition=Condition 1 (Aorta) Ao 104/62/81 11:57 AM RCA angiography performed in [facility]. lparsley 11:59 AM Pressure channel 1 zero failed. 11:59 AM Pressure channel 1 zero failed. 11:59 AM HR=77 bpm, TCEN=333/77 mmhg, SpO2=95.0 %, Comment=Sinus Rhythm 11:59 AM Pressure channel 1 zeroed. 11:59 AM Recorded Pressure: LV, HR=78, Condition=Condition 1 (Left Ventricle) LV 142/4/19 12:00 PM Catheter selectively placed in left ventricle lparsley 12:00 PM Recorded Pressure: LV, Ao, HR=77, Condition=Condition 1 (Left Ventricle) LV 143/10/23, (Aorta) Ao 137/90/110 12:00 PM Bolus angiogram of left Ventricle complete: 10 ml/sec for a total of 30 mls lparsley 12:01 PM Catheter removed lparsley 12:01 PM RBL reinserted lparsley 12:02 PM HR=77 bpm, OGSL=991/79 mmhg, SpO2=96.0 %, Resp=20 B/min, Comment=Sinus Rhythm 12:04 PM Catheter removed unable to engage lparsley 12:04 PM Time: 11:49 Patient comfortable and pain free: Yes lparsley 12:04 PM Time: 11:49LOC: 4 = Oriented but drowsy lparsley 12:05 PM 5Fr FL5 catheter inserted over the wire [id number] lparsley 12:05 PM HR=74 bpm, RWNS=463/78 mmhg, SpO2=96.0 %, Comment=Sinus Rhythm 12:07 PM Recorded Pressure: Ao, HR=73, Condition=Condition 1 (Aorta) Ao 123/81/99 12:07 PM Catheter removed unable to engage lparsley 12:07 PM Wire removed lparsley 12:08 PM TJ=891 bpm, CAOO=215/71 mmhg, SpO2=96.0 %, Resp=27 B/min 12:09 PM Time: 12:09 Patient comfortable and pain free: Yes kkallner 12:09 PM Time: 12:09LOC: 4 = Oriented but drowsy kkallner 12:09 PM unable to engage LCA from right radial kkallner 12:12 PM HR=75 bpm, BTDC=198/64 mmhg, SpO2=95.0 %, Resp=35 B/min 12:13 PM Time: 12:12 .5 ml Lidocaine 2% to left radial Subcutaneous Given by Kit Mitchell MD, [facility] kkallner 12:14 PM HR=74 bpm, LSLM=421/68 mmhg, SpO2=96.0 %, Resp=25 B/min 12:15 PM Time: 12:15 Nitroglycerin .4 mcg Sublingual Given by Meli Carver RN kkall 12:17 PM unable to access left radial kkallner 12:17 PM HR=74 bpm, IGKQ=518/70 mmhg, SpO2=96.0 %, Resp=32 B/min 12:18 PM Time: 12:17 19 ml Lidocaine 2% to right groin Subcutaneous Given by Kit Mitchell MD, [facility] kkall 12:19 PM Access obtained by percutaneous puncture. 6Fr 10cm Terumo Glidesheath sheath placed in right Femoral artery. [id number] kkallner 12:19 PM 6Fr RBL 3.5 Convey guide catheter was used to cannulate the PCI vessel successfully. reused? Yes kkallner 12:20 PM HR=75 bpm, HKHU=099/71 mmhg, SpO2=96.0 % 12:20 PM wire removed kkallner 12:20 PM LCA angiography performed in multiple views. kkallner 12:20 PM Recorded Pressure: Ao, HR=75, Condition=Condition 1 (Aorta) Ao 127/92/107 12:22 PM wire and catheter removed kkallner 12:22 PM Bolus angiogram of right Femoral complete: 4 ml/sec for a total of 7 mls kkallner 12:23 PM HR=75 bpm, CMRY=558/72 mmhg, SpO2=96.0 %, Resp=22 B/min 12:23 PM Procedure completed at 12:23 kkallner 12:24 PM Sign out completed: Radiation Dose 808.30 mGy Fluoro Time: 8.6 Isovue 370 - 200ml contrast 61 ml given by Kit Mitchell MD, [facility]. Complications: NoneCardiac Rehab Consult needed: NoConfirmed administered medications: Yes kkallner 12:24 PM Isovue 370 - 200ml,1 Bottle(s) used. kkallner 12:24 PM 11 ml air in Vasc Band. kkallner 12:25 PM Post ECG NSR kkallner 12:25 PM Post Blood Pressure 144/72 kkallner 12: PM 12:26 Post Pulses Rt Radial 1+ kkallner 12: PM 12:26 Post Pulses Bilateral DP \\T\\ PT 2+ kkallner 12: PM Information taught Cardiac Cath and Vasc Band kkallner 12: PM Education needs Procedure, Plan of Care, and Responsibilities of Patient in Care kkall 12: PM Learning barriers :None kkallner 12: PM Education Methods Verbal kkallner 12: PM Education evaluation Able to repeat information kkallner : PM Site status No bleeding/hematoma - Rt Wrist as reported by Marii Ibarra RT (R) at 12:26 kkallner 12: PM Plavix, Effient or Brilinta given No kkallner 12: PM Delay to floor No kkallner 12: PM Family placed in consult room. kkallner 12: PM Complications: None kkallner : PM Fluoro Time: 8.6 kkner 12: PM Isovue 370 - 200ml contrast 61 ml given by Kit Mitchell MD, FACC. kkallner 12:27 PM Radiation Dose 808.30 mGy kkallner 12:27 PM At 12:27 the ACT was 205 seconds. kkallner 12:30 PM Coronary Dominance: Left kkallner 12:30 PM Left Main Coronary Artery with 0% stenosis kkallner 12:30 PM Proximal Left Anterior Descending Coronary Artery with 0% stenosis. If graft is supplying this territory, 0 % stenosis. kkallner 12:30 PM Mid/Distal Left Anterior Descending Coronary Artery and diagonal branches with 0% stenosis. If graft is supplying this area, 0 % stenosis kkallner 12:30 PM Circumflex, Obtuse Marginal, Left Posterior Descending, and Left Posterolateral Coronary Arteries with 0 % stenosis. If graft is supplying this area, 0 % stenosis kkallner 12:30 PM Right Coronary, Right Posterior Descending Arteries with Right Posterolateral and Acute Marginal branches with 0 % stenosis. If graft is supplying this area, 0 % stenosis kkallner 12:30 PM Ramus with 0% stenosis. If graft is supplying this area, 0 % stenosis kkallner 01:03 PM Patient out of room: 13:[address] [place] [address] 01:45 PM Arterial sheath pulled using manual compression and sterile 4x4 for 15 minutes by SELAM Nunn 01:48 PM Report given to Alec DOSS Pt taken to 2A Room #13. 13:48 kylie 01:51 PM Site status No bleeding/hematoma - Rt Groin as reported by Meli Carver RN at 13:48 kylie 01:52 PM Opsite applied kylie 02:09 PM Tylenol given for complaints of 4/10 headache, see MAR kylie 02:15 PM Patient out of room: 14:15 ejohmichael Complications Complication None Hemodynamics Pressures Site Systolic/A Wave Diastolic/V Wave Mean AO 104 62 81 LV 142 4 19 LV 143 10 23 AO 137 90 110 AO 123 81 99 AO 127 92 107 Post Procedure Information Blood Pressure: 144/72 mmHg Rhythm: NSR Post procedural instructions were given Site Checks Time Location Status Staff Sheath In? Note 12:26 PM Rt Wrist No bleeding/hematoma Marii Ibarra RT (R) 01:04 PM Rt Wrist No bleeding/ No Hematoma Anum Cooney RN 01:04 PM Rt Groin No bleeding/ No Hematoma Anum Cooney RN 01:04 PM Lt Wrist No bleeding/ No Hematoma Anum Cooney RN 01:15 PM bilat wrist No bleeding/ No Hematoma Meli Carver RN 01:15 PM Rt Groin No bleeding/ No Hematoma Meli Carver RN 01:28 PM Rt Groin No bleeding/ No Hematoma Lanette Mon RT 01:29 PM bilat wrist No bleeding/ No Hematoma Lanette Mon RT -2 cc from VAS 01:48 PM Rt Groin No bleeding/hematoma Meli Carver RN 02:00 PM Rt Groin No bleeding/ No Hematoma Meli Carver RN 02:00 PM Rt Wrist No bleeding/ No Hematoma Meli Carver RN 02:13 PM Rt Groin No bleeding/ No Hematoma Meli Carver RN 02:13 PM Rt Wrist No bleeding/ No Hematoma Meli Carver RN Pulses Time Site Pre-Procedure Post-Procedure Note 05/17/2017 9:46:00 AM Bilateral DP \\T\\ PT 2+ 05/17/2017 11:34:00 AM Bilateral radial 1+ 05/17/2017 11:34:00 AM Rt Radial Normal plethysmography's Test 12:26:00 PM Rt Radial 1+ 12:26:00 PM Bilateral DP \\T\\ PT 2+ 05/17/2017 1:18:00 PM Bilateral DP \\T\\ PT 2+ 05/17/2017 1:18:00 PM Bilateral radial 1+ 05/17/2017 2:00:00 PM Bilateral DP \\T\\ PT 1+ 05/17/2017 2:00:00 PM Rt Radial 1+ 05/17/2017 2:13:00 PM Bilateral DP \\T\\ PT 1+ 05/17/2017 2:14:00 PM Rt Radial 1+ Updated by Meli Carver RN on 05/17/2017 2:15:32 PM Meli Carver RN electronically signed on 05/17/2017 2:16:02 PM with status of Final
--- NOTE | 2017-05-17 15:12 | Internal Med Progress Note ---
Date of Encounter: 05/17/17 Time of Encounter: 10:00 - Assessment and plan (1) DVT prophylaxis Current Visit: Yes Status: Acute Assessment and plan: Patient is on Coumadin (2) CAD (coronary artery disease) Current Visit: Yes Status: Acute Assessment and plan: Abnormal stress test but minimal, non-obstructive CAD by [facility]. Continue asa, statin, and betablocker. Qualifiers: Coronary Disease-Associated Artery/Lesion type: [place] artery [place] vs. transplanted heart: [place] heart Associated angina: with stable angina Qualified Code(s): I25.118 - Atherosclerotic heart disease of [place] coronary artery with other forms of angina pectoris (3) Pulmonary embolism Current Visit: Yes Status: Chronic Assessment and plan: History of PE, on Coumadin and S/P IVC filter. Will consider restarting anticoagulation, however, patient had femoral artery puncture for [facility] today, may consider restart anticoagulation tomorrow in case retroperitoneal hematoma. Qualifiers: Pulmonary embolism type: other Chronicity: chronic Acute cor pulmonale presence: without acute cor pulmonale Qualified Code(s): I27.82 - Chronic pulmonary embolism (4) DVT (deep venous thrombosis) Current Visit: Yes Status: Chronic Assessment and plan: Management as above Qualifiers: DVT location: lower extremity Affected thrombotic vein of extremity: unspecified vein of extremity Chronicity: chronic Laterality: left Qualified Code(s): I82.502 - Chronic embolism and thrombosis of unspecified deep veins of left lower extremity (5) Diabetes mellitus Current Visit: Yes Status: Chronic Assessment and plan: Will continue basal and sliding sugar insulin and closely monitor glucose level. Qualifiers: Diabetes mellitus type: type 2 Diabetes mellitus complication status: with unspecified complications Diabetes mellitus intermediate card tender insulin use: with intermediate card tender use Qualified Code(s): E11.8 - Type 2 diabetes mellitus with unspecified complications; Z79.4 - custodial (current) use of insulin (6) Hypertension Current Visit: Yes Status: Chronic Assessment and plan: Continue home medications. BP is stable Qualifiers: Hypertension type: essential hypertension Qualified Code(s): I10 - Essential (primary) hypertension (7) HLD (hyperlipidemia) Current Visit: Yes Status: Chronic Assessment and plan: Continue atorvastatin Qualifiers: Hyperlipidemia type: mixed hyperlipidemia Qualified Code(s): E78.2 - Mixed hyperlipidemia (8) Hypothyroidism Current Visit: Yes Status: Chronic Assessment and plan: Continue home medication Synthroid Qualifiers: Hypothyroidism type: unspecified Qualified Code(s): E03.9 - Hypothyroidism , unspecified (9) Morbid obesity Current Visit: Yes Status: Chronic Assessment and plan: Need for lifestyle modification Qualifiers: Obesity type: due to excess calories Qualified Code(s): E66.01 - Morbid ( severe) obesity due to excess calories (10) Chest pain Current Visit: Yes Status: Acute Assessment and plan: Etiologies is undetermined. LHC shows only minimal CAD. - CXR unremarkable - EKG shows RBBB but it is not new, on previous EKG already. - Will order Echo to r/o pericarditis or RV strain. - Pt has no tachycardia, vitals stable. - I discussed with pt regarding CTA to r/o new PE, pt refused because she is on anticoagulation and IVC filter already, f/u Echo to r/o RV strain, place BNP in AM. - Other DDX may include GERD, skelontomuscular pain. Less likely acute aortic syndrome because pain is minimal. - Pain management at this point. Qualifiers: Chest pain type: precordial pain Qualified Code(s): R07.2 - Precordial pain - Time Spent With Patient 25 - 35 minutes - Subjective Interval history: Patient is a 41-year-old female admitted for chest pain. Her past medical history significant for multiple DVT /PE s/p IVC filter and on Coumadin, hypertension, diabetes, hypothyroidism, and morbid obesity I saw and examined the patient today. She is still complaining of mild chest pain, which is constant in the middle of chest. Patient has abnormal stress test outpatient, cardiology consult saw pt and had LHC today, which shows minimal, non-obstructive CAD. Will continue asa, statin, and betablocker. - Constitutional Vitals: Temp Pulse Resp BP Pulse Ox 97.8 F 71 18 122/83 96 05/17/17 10:57 05/17/17 10:57 05/17/17 10:57 05/17/17 10:57 05/17/17 10:57 General appearance: Present: cooperative, A&O X 3, morbidly obese, no acute distress, answers questions appropriately - Head Head exam: Present: atraumatic, normocephalic - Eye Eye exam: Present: PERRL, conjuntiva pink, sclera anicteric Pupils: Present: PERRL - Neck Neck exam general surgery: Present: supple, trachea midline. Absent: lymphadenopathy - Respiratory Respiratory exam: Present: CTAB. Absent: accessory muscle use, rales, rhonchi, wheezes - Cardiovascular Cardiovascular exam: Present: RRR, +S1, +S2. Absent: diastolic murmur, gallop, rubs, systolic murmur - GI/Abdominal GI/Abdominal exam: Present: normal bowel sounds, soft, no peritoneal signs. Absent: distended, tenderness - Extremities Exam Extremities exam: Present: warm, radial pulses palpable and symetrical. Absent : calf tenderness, cyanotic, pedal edema - Neurological Exam Neurological exam: Present: CN II-XII intact, oriented X3, no focal deficits. Absent: pronater drift, facial droop, speech deficit - Skin Skin exam: Present: dry, intact Internal Medicine: Result - Labs CBC & Chem 7: 05/17/17 03:26 05/17/17 03:26 Labs: Short CBC 05/17/17 Range/Units 03:26 WBC 7.2 (4.3-11.1) K/mcL Hgb 14.7 (11.5-15.4) g/dL Hct 45.4 H (35.3-44.9) % Plt Count 185 (140-400) K/mcL Neutrophils # 4.7 (1.6-8.9) K/mcL BMP 05/17/17 03:26 Sodium 134 L Potassium 4.5 Chloride 99 Carbon Dioxide 28 BUN 16 Creatinine 0.90 Glucose 330 H Calcium 9.4 Cardiac Enzymes 05/16/17 05/17/17 Range/Units 20:30 03:26 Troponin I 0.00 0.00 (0-0.03) ng/mL - ABG Interpretation ABG results: PT/INR, D-dimer PT 19.9 Seconds (9.4-12.1) H 05/17/17 03:26 Consult Discharge Plan - Plan Referrals: Norris Franz MD [Primary Care Provider] -
[2017-05-17] MEDS ORDERED: Ondansetron 4 MG/2 ML VIAL IVP ONE (15:22)
[2017-05-17] MEDS ORDERED: *HR* Promethazine 25 MG/ML VIAL IVP PRN (16:41)
--- NOTE | 2017-05-17 17:23 | Electrocardiograph Report ---
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
[2017-05-17] MEDS ORDERED: Perflutren Lipid Microsphere 1.3 ML in 0.9 % Sodium Chloride 8.7 ML IVP ONE (18:45)
[2017-05-18 05:41] LABS: Basophils % 0.2 %; Eosinophils # 0.1 K/mcL (0.0-0.6); Eosinophils % 0.7 %; Hematocrit 46.1 % (35.3-44.9); Hemoglobin 15.1 g/dL (11.5-15.4); INR 1.7; Immature Granulocytes % 0.4 % (0-4); Lymphocytes # 1.9 K/mcL (0.6-4.6); Lymphocytes % 19.6 %; Mean Corpuscular HGB Conc 32.8 g/dL (31.6-35.5); Mean Corpuscular Hemoglobin 27.6 pg (28.0-33.3); Mean Corpuscular Volume 84.3 fL (83.0-100.0); Mean Platelet Volume 12.3 fL (9.4-12.4); Monocytes # 0.4 K/mcL (0.0-1.3); Monocytes % 4.6 %; Platelet Count 172 K/mcL (140-400); Prothrombin Time 18.1 Seconds (9.4-12.1); Red Blood Count 5.47 M/mcL (3.82-4.97); Red Cell Distribution Width 13.4 % (11.5-14.5); Segmented Neutrophils % 74.5 %
[2017-05-18 05:59] LABS: BUN/Creatinine Ratio 14 (6-26); Blood Urea Nitrogen 11 mg/dL (7-20); Calcium 9.3 mg/dL (8.6-10.8); Carbon Dioxide 30 mEq/L (19-29); Chloride 100 mEq/L (98-109); Glucose 186 mg/dL (70-99); Osmolality,Calculated 290 (280-300); Potassium 4.2 mEq/L (3.5-4.5); Sodium 138 mEq/L (136-145); eGFR For African Americans > 60 (> 60); eGFR For Non-African Americans > 60 (> 60)
[2017-05-18] MEDS: Loratadine 10 MG TABLET PO SCH (08:57)
[2017-05-18] MEDS: Famotidine 20 MG TABLET PO SCH (08:58)
[2017-05-18] MEDS: Gabapentin 300 MG CAPSULE PO SCH (08:58)
[2017-05-18] MEDS: Insulin DETEMIR 100 UNIT/ML X5UNITS SQ SCH (08:59)
[2017-05-18] MEDS: Aspirin 81 MG TAB.CHEW PO SCH (08:59)
[2017-05-18] MEDS: Furosemide 20 MG TABLET PO SCH (08:59)
[2017-05-18] MEDS: Insulin LISPRO 300 UNITS/3 ML VIAL SQ SCH ×2 (09:00→11:33)
[2017-05-18 11:18] VITALS: BP 118/73
[2017-05-18] MEDS ORDERED: *HR* OxyCODONE/APAP 5/325 TABLET PO PRN (12:07)
--- NOTE | 2017-05-18 13:22 | Discharge Summary ---
Date of Encounter: 05/18/17 Time of Encounter: 12:00 - Discharge Diagnosis (1) Unstable angina Priority: Primary Status: Resolved Comments: Pt s/p LHC with no significant disease. Medical management at this time. (2) Atrial fibrillation Priority: Secondary Status: Chronic Comments: Rate controlled. On coumadin. Qualifiers: Atrial fibrillation type: chronic Qualified Code(s): I48.2 - Chronic atrial fibrillation (3) Hypertension Priority: Secondary Status: Chronic Qualifiers: Hypertension type: essential hypertension Qualified Code(s): I10 - Essential (primary) hypertension (4) Hypothyroidism Priority: Secondary Status: Chronic Qualifiers: Hypothyroidism type: unspecified Qualified Code(s): E03.9 - Hypothyroidism , unspecified (5) HLD (hyperlipidemia) Priority: Secondary Status: Chronic Qualifiers: Hyperlipidemia type: mixed hyperlipidemia Qualified Code(s): E78.2 - Mixed hyperlipidemia (6) Morbid obesity Priority: Secondary Status: Chronic Qualifiers: Obesity type: due to excess calories Qualified Code(s): E66.01 - Morbid ( severe) obesity due to excess calories (7) Diabetes mellitus Priority: Secondary Status: Chronic Qualifiers: Diabetes mellitus type: type 2 Diabetes mellitus complication status: with unspecified complications Diabetes mellitus intermediate manager insulin use: with intermediate manager use Qualified Code(s): E11.8 - Type 2 diabetes mellitus with unspecified complications; 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 transplanted heart: [place] heart Associated angina: with stable angina Qualified Code(s): I25.118 - Atherosclerotic heart disease of [place] coronary artery with other forms of angina pectoris (9) Pulmonary embolism Priority: Secondary Status: Chronic Qualifiers: Pulmonary embolism type: other Chronicity: unspecified Acute cor pulmonale presence: without acute cor pulmonale Qualified Code(s): I26.99 - Other pulmonary embolism without acute cor pulmonale (10) FRANCISCO (obstructive sleep apnea) Priority: Secondary Status: Suspected Comments: Recommend further work up as outpatient. - Discharge Medications Prescriptions: Atorvastatin [Lipitor] 40 mg PO HS #30 tablet Metoprolol [Lopressor] 12.5 mg PO BID #30 tablet Home Medications: Duloxetine HCl [Cymbalta] 60 mg PO BID 02/19/16 [History] Ergocalciferol (VITAMIN D2) [Vitamin D2 (50,000 UNIT)] 50,000 unit PO 2XW [History] Furosemide [Lasix] 20 mg PO DAILY 02/19/16 [History] Insulin ASPART [Novolog Flexpen] 0 unit SQ TID 02/19/16 [History] Liraglutide [Victoza 2-Raphael] 1.8 mg SQ DAILY 02/19/16 [History] Ranitidine HCl [Zantac] 150 mg PO BID 02/19/16 [History] Warfarin [Coumadin] 5 mg PO TU 02/19/16 [History] Buspirone HCl [Buspar] 10 mg PO BID PRN 05/16/17 [History] Cetirizine HCl [Zyrtec] 10 mg PO DAILY 05/16/17 [History] Gabapentin [Neurontin] 600 mg PO TID 05/16/17 [History] Insulin Glargine,Hum.rec.anlog [Toujeo Solostar] 33 units SQ BID 05/16/17 [ History] Levothyroxine [Synthroid] 150 mcg PO DAILY 05/16/17 [History] Losartan Potassium [Cozaar] 50 mg PO DAILY 05/16/17 [History] Nitroglycerin [Nitrostat] 0.4 mg SL Q5M PRN 05/16/17 [History] Omeprazole [PriLOSEC] 40 mg PO DAILY PRN 05/16/17 [History] Oxycodone HCl/Acetaminophen [Percocet 5-325 mg Tablet] 1 each PO Q6H PRN [History] Tizanidine HCl [Zanaflex] 4 mg PO Q12H PRN 05/16/17 [History] Topiramate [Topamax] 50 mg PO BID 05/16/17 [History] Warfarin [Coumadin] 7.5 mg PO SUMOWETHFRSA 05/16/17 [History] Aspirin 81 mg PO DAILY tab.chew 05/18/17 [Rx] Atorvastatin [Lipitor] 40 mg PO HS #30 tablet 05/18/17 [Rx] Metoprolol [Lopressor] 12.5 mg PO BID #30 tablet 05/18/17 [Rx] Warfarin [Coumadin] 5 mg PO TU@1800 tablet 05/18/17 [Rx] Warfarin [Coumadin] 7.5 mg PO SUMOWETHFRSA@1800 tablet 05/18/17 [Rx] Allergies/Adverse Reactions: Allergies hydrocodone [From Vicodin] Allergy (Verified 04/21/17 19:19) Swelling of Lip/Tongue/Throat Procedures/tests Complete & Pending: Procedures Performed prior 72 hours Category Date Time Status CL Cardiac 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 Date of admission: 05/16/17 17:47 Primary care physician: Norris Franz MD Consults: Cardiology Discharging clinician: Alfredo Sims Anticipated date of discharge: 05/18/17 - Patient Status Disposition: Home, Self-Care Condition: Good Functional capacity at discharge: independent ambulation Overall status at discharge: patient is progressing back to baseline - Discharge Instructions Follow Up With: Drake Ellington MD [Partnered Physician] - 05/25/17 3:45 pm Forms: ED Satisfaction Letter - Diet and Activity Activity: increase activity as tolerated Diet: diabetic diet, low fat, low cholesterol Hospital course: Ms. Resendiz is a 41 year old female with hx of DVT/PE and chronic atrial fib ( on chronic anticoagulation and s/p IVC filter) presented to ED with complaints of chest discomfort. She recently had outpatient evaluation and was to have [facility] in [place]. She was subsequently placed in observation for further evaluation and treatment. Ms. Resendiz was placed in observation due to chest discomfort. Initial work up was negative and she was evaluated by cardiology. She underwent LHC which showed minimal disease and she was continued on ASA, statin and beta marquis. She was monitored overnight and had no recurrent issues. On 05/18 she was awake and alert. She denied chest discomfort. She was able to be taken off oxygen and was ambulating in the hallway. She did have slight decrease in her pulse ox when sleeping. She was afebrile and vitals stable. At that time she was felt stable for discharge home. She would benefit from outpatient sleep study. - Time Spent with Patient Total time spent providing and/or coordinating discharge services: 38min - Constitutional Vitals: Temp Pulse Resp BP Pulse Ox 98.2 F 73 18 118/73 94 05/18/17 11:14 05/18/17 11:14 05/18/17 11:14 05/18/17 11:14 05/18/17 11:14 General appearance: Present: cooperative, A&O X 3, morbidly obese, answers questions appropriately - Head Head exam: Present: normocephalic - Eye Eye exam: Present: EOMI, conjuntiva pink - ENT ENT exam: Present: mucous membranes moist - Respiratory Respiratory exam: Present: decreased breath sounds, CTAB. Absent: rhonchi, wheezes - Cardiovascular Cardiovascular exam: Present: distant heart sounds, irregular rhythm. Absent: tachycardia - GI/Abdominal GI/Abdominal exam: Present: soft. Absent: tenderness - Extremities Exam Extremities exam: Present: warm. Absent: tenderness - Neurological Exam Neurological exam: Present: alert, oriented X3 - Psychiatric Psychiatric exam: Present: normal affect, normal mood
--- NOTE | 2017-05-18 15:44 | Invasive Diagnostic Lab ---
Name: Cristina Resendiz Date of Study: 05/17/2017 Date: 1975 Ht: 167.6 cm /66.0 in Medical Record#: [id number] Age: 41 Wt: 137.3 kg / 302.69 lb Account/Order#: [id number] Gender: Female BSA: 2.38 Order #: [id number] Fluoro Dose: 808 mGy BMI: 48.88 Procedure Physician: Kit Mitchell MD, FACC Referring MD: Referring MD: Procedures Performed: LEFT HEART CATH Indications: Abnormal Test - Stress Impressions: Coronary arteries are angiographically normal. The left ventricle is normal and has normal contractility EF 50% Recommendations: Optimal medical therapy of patient's disease. Aggressive risk factor modification. History/Risk Factors: DVT PE THYROID DISEASE POSITIVE STRESS TEST Diabetes Hypertension Dyslipidemia Procedure Access obtained in the right Femoral artery by percutaneous puncture Complications: None, None Contrast: Isovue 61ml Hemodynamics: Pressures Site Systolic/ A Wave Diastolic/ V Wave End Diastolic/ Mean HR AO 104 62 81 76 LV 142 4 19 78 LV 143 10 23 77 AO 137 90 110 77 AO 123 81 99 73 AO 127 92 107 75 LV Ventriculography Ejection Method: LV Gram Ejection Fraction: 50% Wall Motion: BULL Anterobasal Normal Anterolateral Normal Apical: Normal Inferoapical Normal Inferobasal Normal Coronary Dominance: Left Lesion Findings/Interventions * Left Main Coronary Artery The LMCA is angiographically free of disease. * Left Anterior Descending The LAD is angiographically free of disease. The 1st Diagonal is angiographically free of disease. * Circumflex The Circumflex is angiographically free of disease. The 1st Marginal is angiographically free of disease. The Left PDA is angiographically free of disease. * Right Coronary Artery The RCA is angiographically free of disease. The Right Coronary Artery is small in size.. Updated by RT Yarely (R) on 05/17/2017 12:33:39 PM Kit Mitchell MD, FACC electronically signed on 05/18/2017 3:40:25 PM with status of Final
[2017-05-18] MEDS ORDERED: *HR* Warfarin 7.5 MG TABLET PO SCH (18:00)
[2017-05-18] MEDS ORDERED: Warfarin perPT PO PRN (18:00)
[2017-05-23] MEDS ORDERED: *HR* Warfarin 5 MG TABLET PO SCH (18:00)
== END 2017-05-18 14:20 | disposition home or self-care (01) ==
LOC: EMEROO 14:25 → 2ANU 14:25 → SUATTDRO 17:47 → 2ANU 18:57
PROVIDERS: ADMIT Internal Medicine; ATTEND Internal Medicine

== ENCOUNTER 2017-09-06 15:36 | Observation (INO) ==
[2017-09-06] MEDS ORDERED: Insulin Human Regular 10 UNIT in 0.9 % Sodium Chloride 10 ML IV ONE (15:53)
--- NOTE | 2017-09-06 16:00 | Emergency Department Note ---
Disposition Clinical Impression: CVA (cerebral vascular accident) Qualifiers: CVA mechanism: other Qualified Code(s): I63.8 - Other cerebral infarction Disposition: Admitted As Inpatient Condition: Good Time of Disposition: 18:01 Neuro HPI - General Chief Complaint: ED Neuro Symptoms/Deficit Stated Complaint: Neck/face numbness Time Seen by Provider: 09/06/17 15:45 Source: family Nursing Notes Reviewed: Yes Vital Signs Reviewed: Yes - History of Present Illness HPI Narrative: The patient Is a 42-year-old female with a past medical history of a Afib and is on Coumadin complaining of numbness and tingling and weakness of the left sided face and change in her speech. She states that it occurred around 2 PM today. Last well known was at 1:45pm per her daughter. The patient's daughter states that her mom was conversing with her normally at around 1:45pm in the same room and then received a text from her mom at 2:17pm while she was in another room complaining of left sided face numbness or tingling. The patient admits numbness on the left side in her forehead, cheeks, lips, and tongue. The patient denies any history of stroke or TIA or any similar event. The daughter admits that there is a very noticeable change in her speech. The patient denies any headaches, vision changes, chest pain, shortness of breath, difficulty breathing, Abdominal pain, numbness and tingling in her upper and lower extremities, and weakness in her extremities. - Related Data Home Medications: Home Medications Medication Instructions Recorded Confirmed Duloxetine HCl [Cymbalta] 60 mg PO BID 02/19/16 09/06/17 Ergocalciferol (VITAMIN D2) 50,000 unit PO 2XW 02/19/16 09/06/17 [Vitamin D2 (50,000 UNIT)] Furosemide [Lasix] 20 mg PO BID 02/19/16 09/06/17 Insulin ASPART [Novolog Flexpen] 0 unit SQ TID 02/19/16 09/06/17 Liraglutide [Victoza 2-Raphael] 1.8 mg SQ DAILY 02/19/16 09/06/17 Ranitidine HCl [Zantac] 150 mg PO BID 02/19/16 09/06/17 Buspirone HCl [Buspar] 10 mg PO BID PRN 05/16/17 09/06/17 Cetirizine HCl [Zyrtec] 10 mg PO DAILY 05/16/17 09/06/17 Gabapentin [Neurontin] 600 mg PO TID 05/16/17 09/06/17 Insulin Glargine,Hum.rec.anlog 33 units SQ BID 05/16/17 09/06/17 [Toujeo Solostar] Levothyroxine [Synthroid] 150 mcg PO QAM 05/16/17 09/06/17 Losartan Potassium [Cozaar] 50 mg PO DAILY 05/16/17 09/06/17 Nitroglycerin [Nitrostat] 0.4 mg SL Q5M PRN 05/16/17 09/06/17 Omeprazole [PriLOSEC] 40 mg PO DAILY PRN 05/16/17 09/06/17 Tizanidine HCl [Zanaflex] 4 mg PO Q12H PRN 05/16/17 09/06/17 Topiramate [Topamax] 50 mg PO BID 05/16/17 09/06/17 Mupirocin [Bactroban Oint] 1 appl TP BID 09/06/17 09/06/17 Warfarin [Coumadin] 5 mg PO THSA 09/06/17 09/06/17 Warfarin [Coumadin] 7.5 mg PO SUMOTUWEFR 09/06/17 09/06/17 cephALEXin [Keflex] 500 mg PO TID 09/06/17 09/06/17 diazePAM [Valium] 5 mg PO BID 09/06/17 09/06/17 Previous Rx's Medication Instructions Recorded Aspirin 81 mg PO DAILY tab.chew 05/18/17 Atorvastatin [Lipitor] 40 mg PO HS #30 tablet 05/18/17 Metoprolol [Lopressor] 12.5 mg PO BID #30 tablet 05/18/17 Allergies/Adverse Reactions: Allergies Allergy/AdvReac Type Severity Reaction Status Date / Time hydrocodone [From Vicodin] Allergy Swelling Verified 06/05/17 17:33 of Lip/Tongue/Throat Review of Systems: Constitutional: No fever Vision: No blurred vision ENT: No rhinorrhea Respiratory: No cough Allergic: No allergies : No blood in urine GI: No blood in stool Hematologic: No bruising Dermatologic: No skin rash Musculoskeletal: No pain in the extremities Neuro: Admits a change in speech with slurring. Admits mild drooping of the left side of the face. Admits numbness of the entire left face including the left forehead, left cheek, left side of her lips, left chin and left tingling in her mouth. She denies any numbness or tingling on the right side of her face. Denies any changes in sensation or weakness in the upper and lower extremities. All systems ED: reviewed and negative except as stated. Review of Systems: As Per HPI Neurological: Reports: as per HPI, weakness, numbness, other (Admits slurring of her speech. Admits numbness of the left side of face and tongue. No weakness or numbness or tingling of any of the extremities. ) Past Medical History - Past Medical History Medical history: Reports: arthritis, atrial fibrillation, diabetes, hypertension , thyroid disease, other Surgical history: Reports: herniorrhaphy, orthopedic, other Psychiatric history: Reports: anxiety, depression STAFF COUNSEL history: Reports: no STAFF COUNSEL history - Social History Smoking Status: Never smoker Smokeless Tobacco Status: No Alcohol use: Reports: none Drug use: Reports: none Physical Exam CONSTITUTIONAL: Alert and oriented X3, well-nourished, in no apparent distress HEAD: Normocephalic; atraumatic. EYES: PERRL, no scleral icterus. NOSE: The nose is normal in appearance without rhinorrhea RESP: Normal chest excursion with respiration; breath sounds clear and equal bilaterally; no wheezes, rhonchi, or rales CARD: Regular rhythm, without murmurs, rub or gallop ABD: Non-distended; non-tender, soft,without rigidity, rebound or guarding SKIN: Normal for age and race; warm and dry; no apparent lesions NEUROLOGICAL: NIH stroke scale score of 5 in the room. Patient was unable to feel my touch on the left side of her head, face, and chin. Patient was unable to raise both of her eyebrows, unable to give me a full smile, and unable to protrude her tongue out completely. Sensation on the right side of the face was intact. Negative arm drift bilaterally. Patient is alert and oriented times three. Strength is 5/5 for flexion and extension in all 4 extremities. Patellar DTRS are equal and intact. Finger to nose testing is equal and normal bilaterally. - General General appearance: alert Course Vital Signs Temperature 98.2 F 09/06/17 15:40 Pulse Rate 78 09/06/17 15:40 Respiratory Rate 10 09/06/17 15:40 Blood Pressure 134/86 09/06/17 15:40 O2 Sat by Pulse Oximetry 96 09/06/17 15:40 Temperature 98.3 F 09/06/17 18:34 Pulse Rate 76 09/06/17 18:34 Respiratory Rate 14 09/06/17 18:34 Blood Pressure 112/73 09/06/17 18:34 O2 Sat by Pulse Oximetry 97 09/06/17 18:34 Oxygen Delivery Oxygen Delivery Room Air Neuro Symptoms/Deficit - MDM Narrative Medical decision making narrative: Vitals are normal. Patient is afebrile. Physical exam show slurred speech and numbness in the left side of the face. NIH stroke scale score is a 4. Stroke alert was called. Patient will be admitted. Spoke with Fransisco Minor and he will accept the patient, and asked me to consult neurologist. Spoke with Dr. Calixto, the neurologist, and he agrees to see the patient tomorrow. He recommended that the patient receive an MRI of the head and brain. - Lab Data Lab results reviewed: Yes I reviewed the patient's lab results. Result diagrams: 09/06/17 15:56 09/06/17 15:56 Lab Results 09/06/17 09/06/17 09/06/17 Range/Units 15:56 15:56 15:56 WBC 8.1 (4.3-11.1) K/mcL RBC 5.50 H (3.82-4.97) M/mcL Hgb 15.0 (11.5-15.4) g/dL Hct 45.5 H (35.3-44.9) % MCV 82.7 L (83.0-100.0) fL MCH 27.3 L (28.0-33.3) pg MCHC 33.0 (31.6-35.5) g/dL RDW 13.0 (11.5-14.5) % Plt Count 181 (140-400) K/mcL MPV 12.0 (9.4-12.4) fL Immature Gran % 0.4 (0-4) % Seg Neutrophils % 60.6 % Lymphocytes % 32.0 % Monocytes % 4.7 % Eosinophils % 1.7 % Basophils % 0.6 % Neutrophils # 4.9 (1.6-8.9) K/mcL Lymphocytes # 2.6 (0.6-4.6) K/mcL Monocytes # 0.4 (0.0-1.3) K/mcL Eosinophils # 0.1 (0.0-0.6) K/mcL Basophils # 0.1 (0.0-0.2) K/mcL Immature Plt Fraction 9.2 H (1.1-6.1) % PT 21.3 H (9.4-12.1) Seconds INR 2.0 APTT 33.1 (26.0-36.0) Seconds Sodium 133 L (136-145) mEq/L Potassium 4.5 (3.5-4.5) mEq/L Chloride 98 (98-109) mEq/L Carbon Dioxide 26 (19-29) mEq/L BUN 15 (7-20) mg/dL Creatinine 0.94 (0.57-1.11) mg/dL Est GFR ( Amer) > 60 (> 60) Est GFR (Non-Af Amer) > 60 (> 60) BUN/Creatinine Ratio 16 (6-26) Glucose 441 H (70-99) mg/dL Calculated Osmolality 296 (280-300) Calcium 9.5 (8.6-10.8) mg/dL Troponin I (0-0.03) ng/mL 09/06/17 Range/Units 15:56 WBC (4.3-11.1) K/mcL RBC (3.82-4.97) M/mcL Hgb (11.5-15.4) g/dL Hct (35.3-44.9) % MCV (83.0-100.0) fL MCH (28.0-33.3) pg MCHC (31.6-35.5) g/dL RDW (11.5-14.5) % Plt Count (140-400) K/mcL MPV (9.4-12.4) fL Immature Gran % (0-4) % Seg Neutrophils % % Lymphocytes % % Monocytes % % Eosinophils % % Basophils % % Neutrophils # (1.6-8.9) K/mcL Lymphocytes # (0.6-4.6) K/mcL Monocytes # (0.0-1.3) K/mcL Eosinophils # (0.0-0.6) K/mcL Basophils # (0.0-0.2) K/mcL Immature Plt Fraction (1.1-6.1) % PT (9.4-12.1) Seconds INR APTT (26.0-36.0) Seconds Sodium (136-145) mEq/L Potassium (3.5-4.5) mEq/L Chloride (98-109) mEq/L Carbon Dioxide (19-29) mEq/L BUN (7-20) mg/dL Creatinine (0.57-1.11) mg/dL Est GFR ( Amer) (> 60) Est GFR (Non-Af Amer) (> 60) BUN/Creatinine Ratio (6-26) Glucose (70-99) mg/dL Calculated Osmolality (280-300) Calcium (8.6-10.8) mg/dL Troponin I 0.00 (0-0.03) ng/mL - Radiology Data Radiology results reviewed: Yes I reviewed the patient's radiology results. Head CT 09/06/17 15:58 IMPRESSION: No acute intracranial abnormality. D/ / Rich Mahajan MD / Rich Mahajan MD Interpreting Provider: Rich Mahajan MD - EKG Data EKG attestation: Yes I reviewed and interpreted this EKG. EKG results narrative: EKG shows sinus rhythm with a rate of 81, WI interval of 135, QRS duration of 133, QT at 379, QTC at 416. No acute ischemic changes noted on the EKG today. No significant changes on EKG compared to the old EKG dated on 05/16/17. NIH Stroke Scale - Level of Consciousness LOC: Alert - LOC Questions LOC Questions: Answers both correctly - LOC Commands LOC Commands: Performs both correctly - Best Gaze Best Gaze: Normal - Visual Visual: No visual loss - Facial Palsy Facial Palsy: Minor asymmetry on smiling, flattened nasolabial fold - Motor Arms Motor Arm-Left: No drift for 10 seconds Motor Arm-Right: No drift for 10 seconds - Motor Legs Motor Leg-Left: No drift for 5 seconds Motor Leg-Right: No drift for 5 seconds - Limb Ataxia Limb Ataxia: Absent of affected limb too weak to perform exam - Sensory Sensory: Severe loss. Total sensory loss, pt unaware of being touched - Best Language Best Language: Mild to moderate aphasia. Examiner can identify picture from response - Dysarthria Dysarthria: Mild, slurs some words - Extinction and Inattention Extinction and Inattention: Normal - NIHSS Total Score NIHSS Total Score: 5 TPA Checklist - Source Information Source: Patient - Eligibilty for IV tPA 1. LKW equal to or less than 4.5 hours be before treatment: Yes 2. Clinical diagnosis of ischemic stroke causing deficit: Yes 3. Age 18 years or older: Yes - Contraindications 4. Evidence of intracranial hemorrhage on pretreatment CT: No 5. Presentation suggests subarachnoid hem, even if CT normal: No 6. CT shows multilobar infarction: No 7. Known neoplasm, arteriovenous malformation, or aneurysm: No 8. Significant head trauma (w/ LOC) or CVA in last 3 months: No 9. BP elevated (systolic > 185 or diastolic > 110): No 10. Abnormal Blood Glucose (<50 or >400mg/dl): No 11. Active internal bleeding [PM.TPA15]: No 12. Known bleeding risk (including; not limited to 13-15): Yes 13. Heparin/argatroban/bivalirudin w/in 48hrs & PTT > normal: No 14. Platelet count less than 100,000/MM3: No 15. Current or recent use of anticoagualants (see protocol): Yes - Warnings/Precautions Considerations 16. Prior ischemic stroke within last 3 months: No 17. Recent history of intracranial hemorrhage: No 18. : No 19. Current/recent use Effient (7 days) or Brilinta (5 days): No 20. Arterial puncture at non compressible site or LP >7days: No 21. Major surgery or serious trauma in last 14 days: No 22. GI or urinary tract hemorrhage in last 21 days: No 23. LA involving left anterior myocardium in last 3 months: No 24. Suspected or known infective endocarditis/pericarditis: No - LKW: 3-4.5 hrs Add. Warnings/Precautions 21. oral anticoag other than warfarin regardles of last dose: No Patient/family understanding: The patient/family members have been counseled and understood the risk, benefit , and alternatives of treatment.
[2017-09-06 16:04] LABS: Basophils # 0.1 K/mcL (0.0-0.2); Basophils % 0.6 %; Eosinophils # 0.1 K/mcL (0.0-0.6); Eosinophils % 1.7 %; Hematocrit 45.5 % (35.3-44.9); Immature Granulocytes % 0.4 % (0-4); Immature Platelets 9.2 % (1.1-6.1); Lymphocytes # 2.6 K/mcL (0.6-4.6); Mean Corpuscular Hemoglobin 27.3 pg (28.0-33.3); Mean Corpuscular Volume 82.7 fL (83.0-100.0); Monocytes # 0.4 K/mcL (0.0-1.3); Monocytes % 4.7 %; Neutrophils # 4.9 K/mcL (1.6-8.9); Platelet Count 181 K/mcL (140-400); Segmented Neutrophils % 60.6 %
[2017-09-06] MEDS ORDERED: Alteplase (Activase) 81 MG in EMPTY BAG 1 EACH IVPB ONE (16:05)
[2017-09-06] MEDS ORDERED: Alteplase (Activase) 9 MG in EMPTY BAG 1 EACH IVP ONE (16:05)
[2017-09-06 16:15] LABS: Prothrombin Time 21.3 Seconds (9.4-12.1)
[2017-09-06 16:18] LABS: Activated Partial Thrombo Time 33.1 Seconds (26.0-36.0)
--- NOTE | 2017-09-06 16:22 | Emergency Department Note ---
START Narrative - START START: I examined this patient and my medical decision-making was reviewed with the Resident Physician. I agree with the documented findings, disposition and treatment plan as described except to the extent set forth below. HEENT left facial numbness and weakness onset couple of hours ago. Denies injury. History of atrial fibrillation on Coumadin. INR last checked was 1.7. On examination she is in no acute distress. Vital sensory discrepancy in the left side of her face. Mild drooping of the side of the mouth. No pronator drift. Her NIH is 4. Plan. Stroke alert called. CT negative. Evaluated by neurology. They do not feel she is a TPA candidate secondary to her symptoms be mild, history of Coumadin use. Will be admitted to medicine for further stroke workup. 35 minutes of critical care exclusive of separately billable procedures.
[2017-09-06 16:29] LABS: BUN/Creatinine Ratio 16 (6-26); Blood Urea Nitrogen 15 mg/dL (7-20); Calcium 9.5 mg/dL (8.6-10.8); Carbon Dioxide 26 mEq/L (19-29); Chloride 98 mEq/L (98-109); Glucose 441 mg/dL (70-99); Osmolality,Calculated 296 (280-300); Potassium 4.5 mEq/L (3.5-4.5); Sodium 133 mEq/L (136-145); eGFR For African Americans > 60 (> 60); eGFR For Non-African Americans > 60 (> 60)
[2017-09-06] MEDS ORDERED: Aspirin 325 MG TABLET PO ONE (16:29)
[2017-09-06] MEDS ORDERED: Ondansetron 4 MG/2 ML VIAL IVP PRN (19:28)
[2017-09-06] MEDS ORDERED: Naloxone 0.4 MG/ML INJ IVP PRN (19:28)
[2017-09-06] MEDS ORDERED: tiZANidine 4 MG TABLET PO PRN (19:31)
[2017-09-06] MEDS ORDERED: Nitroglycerin 0.4 MG TAB.SUBL SL PRN (19:31)
[2017-09-06] MEDS ORDERED: Dextrose Gel 15 GM PO PRN ×2 (21:21)
[2017-09-06] MEDS ORDERED: D5% in Water 1,000 ML IVC PRN (21:21)
[2017-09-06] MEDS ORDERED: *HR* Dextrose 50 % in Water (Syg) 50 ML SYRINGE IVP PRN (21:21)
--- NOTE | 2017-09-06 22:35 | Internal Med History&Physical ---
<TammyangelinamarcellaFransisco rose - Last Filed: 09/06/17 23:42> Date of Encounter: 09/06/17 Time of Encounter: 19:00 Assessment and Plan (1) Weakness on left side of face Current visit: Yes Status: Acute Patient presents with report of left-sided facial weakness that began at 2 p.m. today. [facility] stroke team advised that patient was not appropriate for TPA due to currently taking Coumadin. NIHSS scale ordered with neuro checks Q2HR. CT of the head today was negative. MRI of the head/brain ordered. Dysphagia screen ordered and patient to be NPO until passed. Falls/safety precautions. Neurology consult ordered. Patient is at high risk for CVA event based on current symptoms , hx of DVT and cardiac risk factors and will be placed as observation status. (2) HTN (hypertension) Current visit: Yes Status: Chronic Hx of chronic HTN. Continue Cozaar and Lopressor. Qualifiers: Hypertension type: essential hypertension Qualified Code(s): I10 - Essential (primary) hypertension (3) HLD (hyperlipidemia) Current visit: Yes Status: Chronic Hx of chronic HLD. Continue patient's Lipitor. Qualifiers: Hyperlipidemia type: mixed hyperlipidemia Qualified Code(s): E78.2 - Mixed hyperlipidemia (4) CAD (coronary artery disease) Current visit: Yes Status: Chronic Hx of CAD. Patient placed on continuous cardiac telemetry. Will continue patient's Coumadin with pharmacy dosing, Lipitor, Cozaar, and Lopressor. Will add aspirin therapy. Qualifiers: Coronary Disease-Associated Artery/Lesion type: [place] artery [place] vs. transplanted heart: [place] heart Associated angina: with stable angina Qualified Code(s): I25.118 - Atherosclerotic heart disease of [place] coronary artery with other forms of angina pectoris (5) Diabetes mellitus Current visit: Yes Status: Chronic Hx of chronic diabetes controlled with insulin. Will continue patient's insulin and add hypoglycemic protocol. BG checks ACHS. A1c ordered in a.m. labs. Qualifiers: Diabetes mellitus type: type 2 Diabetes mellitus complication status: with unspecified complications Diabetes mellitus tank terminal gauger insulin use: with group home use Qualified Code(s): E11.8 - Type 2 diabetes mellitus with unspecified complications; Z79.4 - penitentiary (current) use of insulin (6) Hypothyroidism Current visit: Yes Status: Chronic Hx of chronic hypothyroidism. We will continue patient's Synthroid. Qualifiers: Hypothyroidism type: unspecified Qualified Code(s): E03.9 - Hypothyroidism , unspecified (7) DVT prophylaxis Current visit: Yes Status: Acute Patient to continue pharmacy dosing for DVT prophylaxis. Internal Medicine - H&P: HPI Chief complaint: Left-sided facial numbness/weakness Admitted From: Emergency Dept History of present illness: Ms. Resendiz is a 42 year old female with medical history of arthritis, atrial fibrillation, diabetes controlled with insulin, hypertension, and thyroid disease presents from the ED with chief complaint left-sided facial weakness and numbness which began at approximately 2 PM today. Patient and patient's daughter also report a speech deficit which began approximately same time. Patient reports areas affected include forehead, cheeks, lips, and tongue. Patient denies any history of stroke or TIA but does have history of DVT. Patient denies recent illness, fever, chills, abdominal pain shortness of breath , chest pain, palpitations, changes in vision, headache, shortness of breath, weakness in her extremities, lightheadedness, dizziness, unusual bleeding, presyncope, or syncope. Past Med Surg Social Fam HX - Past Medical History Source: patient, old records reviewed, obtained from family Medical history: arthritis, atrial fibrillation, diabetes, hypertension, thyroid disease, other Psychiatric history: anxiety, depression - Past Surgical History Surgical History: herniorrhaphy, orthopedic, other - Social History Smoking Status: Never smoker Smokeless Tobacco Status: No Alcohol use: none Drug use: none Current living situation: Home, With Family Activity Level: Independent ambulation Recent Out of Country Travel Within the Last 8 Weeks: No Exposure or Possible Exposure to Illness During Travel: No - Family History Mother Race: Family Member Ethnicity: Non- Hx Family Cardiac Disorders: Yes (heart disease) Sister Race: Family Member Ethnicity: Non- Hx Family Cardiac Disorders: Yes (CHF) Internal Medicine - H&P: Meds Duloxetine HCl [Cymbalta] 60 mg PO BID 02/19/16 [History] Ergocalciferol (VITAMIN D2) [Vitamin D2 (50,000 UNIT)] 50,000 unit PO 2XW [History] Furosemide [Lasix] 20 mg PO BID 02/19/16 [History] Insulin ASPART [Novolog Flexpen] 0 unit SQ TID 02/19/16 [History] Liraglutide [Victoza 2-Raphael] 1.8 mg SQ DAILY 02/19/16 [History] Ranitidine HCl [Zantac] 150 mg PO BID 02/19/16 [History] Buspirone HCl [Buspar] 10 mg PO BID PRN 05/16/17 [History] Cetirizine HCl [Zyrtec] 10 mg PO DAILY 05/16/17 [History] Gabapentin [Neurontin] 600 mg PO TID 05/16/17 [History] Insulin Glargine,Hum.rec.anlog [Toujeo Solostar] 33 units SQ BID 05/16/17 [ History] Levothyroxine [Synthroid] 150 mcg PO QAM 05/16/17 [History] Losartan Potassium [Cozaar] 50 mg PO DAILY 05/16/17 [History] Nitroglycerin [Nitrostat] 0.4 mg SL Q5M PRN 05/16/17 [History] Omeprazole [PriLOSEC] 40 mg PO DAILY PRN 05/16/17 [History] Tizanidine HCl [Zanaflex] 4 mg PO Q12H PRN 05/16/17 [History] Topiramate [Topamax] 50 mg PO BID 05/16/17 [History] Aspirin 81 mg PO DAILY tab.chew 05/18/17 [Rx] Atorvastatin [Lipitor] 40 mg PO HS #30 tablet 05/18/17 [Rx] Metoprolol [Lopressor] 12.5 mg PO BID #30 tablet 05/18/17 [Rx] Mupirocin [Bactroban Oint] 1 appl TP BID 09/06/17 [History] Warfarin [Coumadin] 5 mg PO THSA 09/06/17 [History] Warfarin [Coumadin] 7.5 mg PO SUMOTUWEFR 09/06/17 [History] cephALEXin [Keflex] 500 mg PO TID 09/06/17 [History] diazePAM [Valium] 5 mg PO BID 09/06/17 [History] 3 Allergy/AdvReac Type Severity Reaction Status Date / Time hydrocodone [From Vicodin] Allergy Swelling Verified 06/05/17 17:33 of Lip/Tongue/Throat All Systems PM: A 10-system review of systems was performed and is negative for pertinent findings except as documented above in the HPI. - Constitutional Constitutional: no chills, no fever(s), no night sweats - EENT Eyes: no change in vision, no discharge, no pain, no photophobia Ears: no ear discharge, no ear pain, no tinnitus Nose, mouth and throat: no dysphagia, no nasal discharge, no neck pain, no sore throat - Breasts Breasts: as per HPI - Cardiovascular Cardiovascular ROS IM: no chest pain, no diaphoresis, no dyspnea, no lightheadedness, no palpitations, no syncope - Respiratory Respiratory: no cough, no dyspnea, no wheezing, no excessive phlegm production - Gastrointestinal Gastrointestinal: no abdominal pain, no diarrhea, no hematemesis, no hematochezia, no melena, no nausea, no vomiting - Genitourinary Genitourinary: no change in urinary stream, no dysuria, no flank pain, no hematuria Menstruation: as per HPI - Musculoskeletal Musculoskeletal ROS IM: no numbness, no tingling - Integumentary Integumentary IM: no rash, no unusual bruising - Neurological Neurological ROS: as per HPI, abnormal speech (Slurring), numbness (Of the left side of forehead, cheeks, lips, and tongue) - Psychiatric Psychiatric: as per HPI - Endocrine Endocrine IM: as per HPI - Hematologic/Lymphatic Hematologic/Lymphatic: no easy bruising - Allergic/Immunologic Allergic/Immunologic: as per HPI - Constitutional Vitals: Temp Pulse Resp BP Pulse Ox 98.3 F 76 14 112/73 97 09/06/17 18:34 09/06/17 18:34 09/06/17 18:34 09/06/17 18:34 09/06/17 18:34 General appearance: Present: cooperative, A&O X 3, morbidly obese, pleasant, no acute distress, answers questions appropriately - Head Head exam: Present: atraumatic, normocephalic - Eye Eye exam: Present: PERRL, conjuntiva pink, sclera anicteric Pupils: Present: PERRL - ENT ENT exam: Present: normal exam, normal external ear exam - Neck Neck exam general surgery: Present: normal inspection, supple, trachea midline. Absent: lymphadenopathy - Respiratory Respiratory exam: Present: CTAB. Absent: accessory muscle use, rales, rhonchi, wheezes - Cardiovascular Cardiovascular exam: Present: RRR, +S1, +S2. Absent: diastolic murmur, gallop, rubs, systolic murmur - GI/Abdominal GI/Abdominal exam: Present: normal bowel sounds, soft, no peritoneal signs. Absent: distended, tenderness - Rectal Rectal exam: Present: deferred - Additional comments: exam deferred. - Extremities Exam Extremities exam: Present: warm, radial pulses palpable and symmetrical. Absent : calf tenderness, cyanotic, pedal edema - Back Exam Back exam: Present: normal inspection - Neurological Exam Neurological exam: Present: CN II-XII intact, oriented X3, no focal deficits, speech deficit (Mild). Absent: pronater drift, facial droop - Psychiatric Psychiatric exam: Present: normal affect, normal mood - Skin Skin exam: Present: dry, intact Internal Med - H&P Results - Labs CBC & Chem 7: 09/06/17 15:56 09/06/17 15:56 - Diagnostic Studies CT scan - head Additional comments: Impressions Head CT 09/06/17 15:58 IMPRESSION: No acute intracranial abnormality. D/ / Rich Mahajan MD / Rich Mahajan MD Interpreting Provider: Rich Mahajan MD <Jeny Celaya - Last Filed: 09/07/17 02:49> Date of Encounter: 09/07/17 Internal Medicine - H&P: HPI History of present illness: Ms. Resendiz is a 42 year old female All Systems PM: A 10-system review of systems was performed and is negative for pertinent findings except as documented above in the HPI. - Constitutional Vitals: Temp Pulse Resp BP Pulse Ox 98.3 F 83 18 104/74 95 09/06/17 23:14 09/06/17 23:14 09/06/17 23:14 09/06/17 23:14 09/06/17 23:14 Internal Med - H&P Results - Labs CBC & Chem 7: 09/07/17 00:14 09/07/17 00:14 Labs: Short CBC 09/07/17 Range/Units 00:14 WBC 8.0 (4.3-11.1) K/mcL Hgb 14.8 (11.5-15.4) g/dL Hct 45.6 H (35.3-44.9) % Plt Count 198 (140-400) K/mcL Neutrophils # 4.7 (1.6-8.9) K/mcL BMP 09/07/17 00:14 Sodium 134 L Potassium 4.1 Chloride 99 Carbon Dioxide 25 BUN 16 Creatinine 0.82 Glucose 240 H Calcium 9.5 Cardiac Enzymes 09/07/17 Range/Units 00:14 Troponin I 0.00 (0-0.03) ng/mL Liver Function 09/07/17 Range/Units 00:14 Total Bilirubin 0.4 (0.2-1.2) mg/dL AST 18 (5-34) Units/L ALT 22 (0-55) Units/L Alkaline Phosphatase 121 (38-126) Units/L Albumin 3.4 L (3.5-5.0) g/dL - Attending Attestation I have seen and examined the patient independently. I have discussed with the CUSTOMER SALES REPRESENTATIVE Mr Grace regarding the management plan. Agree with the documentation. Patient admitted for left face numbness with slurred speech. Need to rule out CVA. CT head negative. Patient is not a TPA candidate because she is on anticoagulation. Cannot finish MRI today because of IVC filter. Need more information from [facility] regarding her IVC filter to proceed MRI. Will place patient on continuous cardiac monitoring, duplex carotid. patient had a recent echo done already. Continue aspirin, Coumadin, and atorvastatin.
[2017-09-06] MEDS: Pantoprazole 40 MG VIAL IVP SCH ×2 (23:38→23:39)
[2017-09-06] MEDS: diazePAM 5 MG TABLET PO SCH (23:39)
[2017-09-06] MEDS: Insulin DETEMIR 100 UNIT/ML X5UNITS SQ SCH (23:40)
[2017-09-06] MEDS: Topiramate 25 MG TABLET PO SCH (23:40)
[2017-09-06] MEDS: Furosemide 20 MG TABLET PO SCH (23:40)
[2017-09-06] MEDS: Gabapentin 300 MG CAPSULE PO SCH (23:40)
[2017-09-07 00:40] LABS: Basophils % 0.5 %; Eosinophils # 0.2 K/mcL (0.0-0.6); Hematocrit 45.6 % (35.3-44.9); Hemoglobin 14.8 g/dL (11.5-15.4); Immature Granulocytes % 0.4 % (0-4); Immature Platelets 9.5 % (1.1-6.1); Lymphocytes # 2.8 K/mcL (0.6-4.6); Lymphocytes % 34.3 %; Mean Corpuscular HGB Conc 32.5 g/dL (31.6-35.5); Mean Corpuscular Hemoglobin 26.7 pg (28.0-33.3); Mean Corpuscular Volume 82.2 fL (83.0-100.0); Mean Platelet Volume 11.9 fL (9.4-12.4); Monocytes # 0.4 K/mcL (0.0-1.3); Neutrophils # 4.7 K/mcL (1.6-8.9); Platelet Count 198 K/mcL (140-400); Red Blood Count 5.55 M/mcL (3.82-4.97); Red Cell Distribution Width 13.1 % (11.5-14.5); Segmented Neutrophils % 57.8 %
[2017-09-07 00:46] LABS: INR 2.1; Prothrombin Time 22.9 Seconds (9.4-12.1)
[2017-09-07 00:48] LABS: Activated Partial Thrombo Time 34.6 Seconds (26.0-36.0)
[2017-09-07 00:55] LABS: Alanine Aminotransferase 22 Units/L (0-55); Albumin 3.4 g/dL (3.5-5.0); Albumin/Globulin Ratio 0.8 (1.1-2.2); Alkaline Phosphatase 121 Units/L (38-126); Aspartate Amino Transferase 18 Units/L (5-34); BUN/Creatinine Ratio 20 (6-26); Bilirubin,Total 0.4 mg/dL (0.2-1.2); Blood Urea Nitrogen 16 mg/dL (7-20); Calcium 9.5 mg/dL (8.6-10.8); Carbon Dioxide 25 mEq/L (19-29); Chloride 99 mEq/L (98-109); Cholesterol 170 mg/dL (< 200); Globulin 4.3 g/dL (2.4-3.5); Glucose 240 mg/dL (70-99); HDL Cholesterol 43 mg/dL (40-59); LDL Cholesterol,Calculated 96 mg/dL (0-99); Magnesium 1.8 mg/dL (1.6-2.6); Osmolality,Calculated 287 (280-300); Potassium 4.1 mEq/L (3.5-4.5); Sodium 134 mEq/L (136-145); Total Protein 7.7 g/dL (6.0-8.3); Triglycerides 155 mg/dL (< 150); eGFR For African Americans > 60 (> 60); eGFR For Non-African Americans > 60 (> 60)
[2017-09-07 01:29] LABS: Hemoglobin A1C 10.5 %
[2017-09-07] MEDS: Acetaminophen 325 MG TABLET PO PRN (05:03)
[2017-09-07] MEDS: Insulin LISPRO 300 UNITS/3 ML VIAL SQ SCH ×3 (08:33→17:03)
[2017-09-07] MEDS: Insulin DETEMIR 100 UNIT/ML X5UNITS SQ SCH ×2 (08:33→20:28)
[2017-09-07] MEDS: Aspirin 81 MG TAB.CHEW PO SCH (09:48)
[2017-09-07] MEDS: Gabapentin 300 MG CAPSULE PO SCH ×3 (09:48→20:28)
[2017-09-07] MEDS: Topiramate 25 MG TABLET PO SCH ×2 (09:48→20:27)
[2017-09-07] MEDS: diazePAM 5 MG TABLET PO SCH ×2 (09:49→20:28)
[2017-09-07] MEDS: Furosemide 20 MG TABLET PO SCH ×2 (09:49→15:41)
[2017-09-07] MEDS: Loratadine 10 MG TABLET PO SCH (09:50)
--- NOTE | 2017-09-07 11:25 | Neurology - Consult Note ---
<Luis Carlos Lawrence - Last Filed: 09/07/17 17:38> Date of Encounter: 09/07/17 Time of Encounter: 11:05 Assessment and Plan (1) Focal neurological deficit Current Visit: Yes Status: Acute Patient presented to [place] with left-sided facial drooping and slurred words as per history of present illness. Physical exam showed continued numbness left side of her face, no facial droop observed although patient unable to smile ( she was not trying). Head CT performed revealed no abnormalities. No DVTs noted on Doppler, carotids normal. MRI showed no abnormalities. Consider TIA vs Conversion, given recent stress in patient life Echocardiogram performed on 05/17/17 showed normal ejection fraction Continue aspirin and statin Continue warfarin PT/OT evaluation recommended History of Present Illness Chief complaint: Left facial numbness HPI: Ms. Resendiz is a 42 year old female medical history significant for atrial fibrillation (on Coumadin), diabetes mellitus (uncontrolled), hypertension, hypothyroidism, and several DVTs/PEs (IVC filter placed in 2005 at [facility]) presents to [place] after onset of left facial weakness/numbness and slurred speech. Patient states she was sitting at home resting when she developed numbness in her left cheek. She alerted her daughter who found patient have left-sided droop and was slurring her words (they think from the facial weakness ). There were concerned for CVA and came to the hospital. She denies having any symptoms in the respiratory body besides her face. She denies having vision changes and she denies having headache. She denies having fevers or chills, shortness of breath, chest pain, or palpitations. She states that she has had no new or abnormal stiffness in her neck. She reports the numbness she is having in her face would extend down the front side of her neck included the inside of her mouth and tongue. Since yesterday with her and her daughter report improvement in her symptoms overall, but they are still present. The daughter states that she is speaking a lot better than she was previously the still has mild dysarthria. Her numbness has improved no longer involves her tongue or neck, but still reports that on the left side of her face. Past Med Surg Social Fam HX - Past Medical History Medical history: arthritis, atrial fibrillation, diabetes, hypertension, thyroid disease, other Psychiatric history: anxiety, depression - Past Surgical History Surgical History: herniorrhaphy, orthopedic, other - Social History Smoking Status: Never smoker Smokeless Tobacco Status: No Alcohol use: none Drug use: none - Family History Mother Race: Family Member Ethnicity: Non- Hx Family Cardiac Disorders: Yes (heart disease) Sister Race: Family Member Ethnicity: Non- Hx Family Cardiac Disorders: Yes (CHF) Medications and Allergies Duloxetine HCl [Cymbalta] 60 mg PO BID 02/19/16 [History] Ergocalciferol (VITAMIN D2) [Vitamin D2 (50,000 UNIT)] 50,000 unit PO 2XW [History] Furosemide [Lasix] 20 mg PO BID 02/19/16 [History] Insulin ASPART [Novolog Flexpen] 0 unit SQ TID 02/19/16 [History] Liraglutide [Victoza 2-Raphael] 1.8 mg SQ DAILY 02/19/16 [History] Ranitidine HCl [Zantac] 150 mg PO BID 02/19/16 [History] Buspirone HCl [Buspar] 10 mg PO BID PRN 05/16/17 [History] Cetirizine HCl [Zyrtec] 10 mg PO DAILY 05/16/17 [History] Gabapentin [Neurontin] 600 mg PO TID 05/16/17 [History] Insulin Glargine,Hum.rec.anlog [Toujeo Solostar] 33 units SQ BID 05/16/17 [ History] Levothyroxine [Synthroid] 150 mcg PO QAM 05/16/17 [History] Losartan Potassium [Cozaar] 50 mg PO DAILY 05/16/17 [History] Nitroglycerin [Nitrostat] 0.4 mg SL Q5M PRN 05/16/17 [History] Omeprazole [PriLOSEC] 40 mg PO DAILY PRN 05/16/17 [History] Tizanidine HCl [Zanaflex] 4 mg PO Q12H PRN 05/16/17 [History] Topiramate [Topamax] 50 mg PO BID 05/16/17 [History] Aspirin 81 mg PO DAILY tab.chew 05/18/17 [Rx] Atorvastatin [Lipitor] 40 mg PO HS #30 tablet 05/18/17 [Rx] Metoprolol [Lopressor] 12.5 mg PO BID #30 tablet 05/18/17 [Rx] Mupirocin [Bactroban Oint] 1 appl TP BID 09/06/17 [History] Warfarin [Coumadin] 5 mg PO THSA 09/06/17 [History] Warfarin [Coumadin] 7.5 mg PO SUMOTUWEFR 09/06/17 [History] cephALEXin [Keflex] 500 mg PO TID 09/06/17 [History] diazePAM [Valium] 5 mg PO BID 09/06/17 [History] 3 Allergy/AdvReac Type Severity Reaction Status Date / Time hydrocodone [From Vicodin] Allergy Swelling Verified 06/05/17 17:33 of Lip/Tongue/Throat All Systems: Gen: Denies fever, denies chills, denies generalized weakness CV: Denies chest pain, denies palpitations, denies tachycardia, denies a regular rhythm Resp: Denies shortness of breathe GI: Denies nausea, denies vomiting, reports difficulty swallowing due to mouth numbness MSK: denies arthralgia, denies muscle weakness Neuro: Denies headache, denies confusion, denies focal weakness in extremities, reports left-sided facial droop, reports left facial numbness as per history of present illness, denies tingling, denies vision changes Physical Examination - Vital Signs Vital Signs: Initial Vital Signs Temp Pulse Resp BP Pulse Ox 98.2 F 78 10 134/86 96 09/06/17 15:40 09/06/17 15:40 09/06/17 15:40 09/06/17 15:40 09/06/17 15:40 - Exam Exam: General: Cooperative, pleasant, no acute distress, alert and oriented 3, answers questions appropriately HEENT: Normocephalic, atraumatic, neck supple, trachea midline, Conjunctiva pink , sclera anicteric, EOMI, PERRL, oral mucosa moist, no orophargeal erythema or exudates Respiratory: No accessory muscle usage, clear to auscultation bilaterally, no wheezes/rhonchi/rales appreciated Cardiovascular: Regular rate and rhythm, S1 and S2 present, no murmurs/rubs/ gallops/clicks appreciated Extremities: No calf tenderness, no pedal edema appreciated, warm, lower extremity pulses palpable and symmetrical Neurological: Alert and oriented 3, no facial droop, continued numbness in left maxilla and mandible, remaining cranial nerves intact grossly, rapid alternating movements smooth with good janae, finger to nose smooth and accurate, sensation to gross touch intact in upper and lower extremities bilaterally, strength 5/5 in upper and lower extremities bilaterally, DTRs 0-1/ 4 in Achilles, patellar, brachioradialis, biceps, and triceps Results - Laboratory Findings CBC and BMP: 09/07/17 00:14 09/07/17 00:14 Abnormal lab findings: Abnormal lab results RBC 5.55 M/mcL (3.82-4.97) H 09/07/17 00:14 Hct 45.6 % (35.3-44.9) H 09/07/17 00:14 MCV 82.2 fL (83.0-100.0) L 09/07/17 00:14 MCH 26.7 pg (28.0-33.3) L 09/07/17 00:14 Immature Plt Fraction 9.5 % (1.1-6.1) H 09/07/17 00:14 PT 22.9 Seconds (9.4-12.1) H 09/07/17 00:14 Sodium 134 mEq/L (136-145) L 09/07/17 00:14 Glucose 240 mg/dL (70-99) H 09/07/17 00:14 POC Glucose 255 (58-89) H 09/06/17 20:12 Hemoglobin A1c 10.5 % (-5.6) H 09/07/17 00:14 Albumin 3.4 g/dL (3.5-5.0) L 09/07/17 00:14 Globulin 4.3 g/dL (2.4-3.5) H 09/07/17 00:14 Albumin/Globulin Ratio 0.8 (1.1-2.2) L 09/07/17 00:14 Triglycerides 155 mg/dL (< 150) H 09/07/17 00:14 VLDL Cholesterol, Calc 31 mg/dL (< 31) H 09/07/17 00:14 Consult Discharge Plan - Plan Referrals: Drake Ellington MD [Primary Care Provider] - 09/15/17 10:15 am <Mitch Calixto - Last Filed: 09/07/17 17:57> Date of Encounter: 09/07/17 Time of Encounter: 17:48 Assessment and Plan (1) Focal neurological deficit Current Visit: Yes Status: Acute My primary suspicion is that we are dealing with a conversion reaction. Generally new onset speech difficulties and the absence of an obvious neurologic etiology or frequently due to functional etiologies. She explained to me that she is having some conflict with neighbors, her son is in intermediate, she is worried about her grandchild who lives in [place]. Certainly she has stroke risk factors however I see no evidence to suspect that this particular admission is due to cerebral ischemia. Her workup has been negative. I would recommend continuing management of her stroke risk factors. She states that she cannot walk. Recommend encouragement and perhaps even physical therapy if necessary. However finding evidence to suspect Guillain-Moab or any other primary neurologic etiology for her inability to walk. We will reevaluate her at your request. History of Present Illness HPI: Chart was reviewed, patient was seen and examined independently. Case was discussed with Dr. Lawrence. My bedside assessment did ask about home matters. She reports to me that she is under a tremendous amount of stress. Some domestic issues, as well as other family matters that she is very concerned about. She did have an MRI scan of the brain that did not reveal evidence of acute infarct. During my assessment I noticed that the fluency of her speech frequently changed. She also now complains of lower extremity weakness. This is only been since this admission. All Systems: A 10-system review of systems was performed and is negative for pertinent findings except as documented above in the HPI. Physical Examination - Vital Signs Vital Signs: Initial Vital Signs Temp Pulse Resp BP Pulse Ox 98.2 F 78 10 134/86 96 09/06/17 15:40 09/06/17 15:40 09/06/17 15:40 09/06/17 15:40 09/06/17 15:40 - Exam Exam: I agree with the above examination and the addition to these factors; The fluency of her speech waxed and waned throughout my encounter with her. In the beginning of her word enunciation was very deliberate however became more fluent as we get further into the visit. There were no language problems. Cranial nerves II through XII are all intact. Motor exam finds a normal strength of the upper and lower extremities bilaterally. Certainly she has enough strength in her legs to be able to walk. Deep tendon reflexes are 2 symmetrically the biceps triceps brachial radialis, absent at the patellar symmetrically, Achilles reflexes are 2 symmetrically. No Babinski, no clonus. Results - Laboratory Findings CBC and BMP: 09/07/17 00:14 09/07/17 00:14 Abnormal lab findings: Abnormal lab results RBC 5.55 M/mcL (3.82-4.97) H 09/07/17 00:14 Hct 45.6 % (35.3-44.9) H 09/07/17 00:14 MCV 82.2 fL (83.0-100.0) L 09/07/17 00:14 MCH 26.7 pg (28.0-33.3) L 09/07/17 00:14 Immature Plt Fraction 9.5 % (1.1-6.1) H 09/07/17 00:14 PT 22.9 Seconds (9.4-12.1) H 09/07/17 00:14 Sodium 134 mEq/L (136-145) L 09/07/17 00:14 Glucose 240 mg/dL (70-99) H 09/07/17 00:14 POC Glucose 267 (58-89) H 09/07/17 11:26 Hemoglobin A1c 10.5 % (-5.6) H 09/07/17 00:14 Albumin 3.4 g/dL (3.5-5.0) L 09/07/17 00:14 Globulin 4.3 g/dL (2.4-3.5) H 09/07/17 00:14 Albumin/Globulin Ratio 0.8 (1.1-2.2) L 09/07/17 00:14 Triglycerides 155 mg/dL (< 150) H 09/07/17 00:14 VLDL Cholesterol, Calc 31 mg/dL (< 31) H 09/07/17 00:14
--- NOTE | 2017-09-07 15:33 | Electrocardiograph Report ---
[address] [address] Test Date: 2017-09-06 Pat Name: Cristina Resendiz Department: 102 Room: 3B48 Gender: F Telecom Analyst: Msc : 1975 Requested By: Navi Rendon Order Number: [id number] Reading MD: Jeremie Santana Measurements Intervals [place] Rate: 81 P: 9 W[place]: 135 QRS: -47 QRSD: 133 T: 19 QT: 379 QTc: 416 Interpretive Statements SINUS RHYTHM RIGHT BUNDLE BRANCH BLOCK LEFT ANTERIOR FASCICULAR BLOCK Electronically Signed On 09-07-2017 15:32:37 EDT by Jeremie Santana
--- NOTE | 2017-09-07 15:35 | Electrocardiograph Report ---
[address] [place], [place] [address] Test Date: 2017-09-06 Pat Name: Cristina Resendiz Department: 113 Room: 3B48 Gender: F Extraction Supervisor: ACOSTA : 1975 Requested By: Bertha Perry Order Number: [id number] Reading MD: Jeremie Santana Measurements Intervals [place] Rate: 79 P: 27 ID: 135 QRS: -46 QRSD: 126 T: 20 QT: 387 QTc: 421 Interpretive Statements SINUS RHYTHM LEFT ANTERIOR FASCICULAR BLOCK Electronically Signed On 09-07-2017 15:33:54 EDT by Jeremie Santana
--- NOTE | 2017-09-07 15:54 | Internal Med Progress Note ---
Date of Encounter: 09/07/17 Time of Encounter: 11:00 - Assessment and plan (1) Paresthesia Current Visit: Yes Status: Acute Assessment and plan: Cristina Resendiz is a 42-year-old female with past medical history GTE's on Coumadin, hypertension, diabetes, morbid obesity and FRANCISCO who presented to [facility] on 09/06/2017 with complaints of slurred speech and left face numbness and tingling. She was placed in observation status for further workup and treatment. 1. Left face paresthesia: Presented with left face numbness/tingling and slurred speech. Head CT negative. Brain MRI negative for acute infarct. Bilateral carotid Dopplers essentially normal. Patient reassessed 09/07 in the afternoon and reports inability to smile or raise eyebrows which is inconsistent with previous exams. Etiology of left face. Seizure unknown at this time, low suspicion for acute neurological etiology, concern for possible psychiatric component. Neurology following. Await further recommendations. Continue ASA, Coumadin. 2. History VTE: Patient reports history of DVTs and pulmonary embolism. Continue home Coumadin. Pharmacy to dose. 3. Diabetes: per hx. uncontrolled. Hgb A1c 10%. Blood sugars and 200s while inpatient. Increase home long-acting insulin. 4. Essential hypertension: per hx. BP controlled. Continue home BP medications. Monitor BP and titrate PRN 5. Morbid obesity: per hx. lifestyle recommendations encouraged. 6. DVT prophylaxis: Coumadin Disposition: To be determined. Evaluated by PT/OT to suggest possible SNF at discharge. Patient to be reevaluated 09/08 (2) CAD (coronary artery disease) Current Visit: Yes Status: Chronic Qualifiers: Coronary Disease-Associated Artery/Lesion type: elim ira artery [place] vs. transplanted heart: elim ira heart Associated angina: with stable angina Qualified Code(s): I25.118 - Atherosclerotic heart disease of elim ira coronary artery with other forms of angina pectoris (3) Diabetes mellitus Current Visit: Yes Status: Chronic Qualifiers: Diabetes mellitus type: type 2 Diabetes mellitus complication status: with unspecified complications Diabetes mellitus terminal gauger insulin use: with prison use Qualified Code(s): E11.8 - Type 2 diabetes mellitus with unspecified complications; Z79.4 - assisted (current) use of insulin (4) DVT (deep venous thrombosis) Current Visit: No Status: Chronic Qualifiers: DVT location: lower extremity Affected thrombotic vein of extremity: unspecified vein of extremity Chronicity: chronic Laterality: left Qualified Code(s): I82.502 - Chronic embolism and thrombosis of unspecified deep veins of left lower extremity (5) DVT prophylaxis Current Visit: Yes Status: Acute (6) Hypertension Current Visit: No Status: Chronic Qualifiers: Hypertension type: essential hypertension Qualified Code(s): I10 - Essential (primary) hypertension (7) Morbid obesity Current Visit: No Status: Chronic - Subjective Interval history: Seen and examined at bedside. Patient is new to me, information obtained from chart review and patient report. Patient says she feels a little better, still with left face numbness and does not feel speech is back to normal. No numbness or tingling, no headache, no blurred vision. - Constitutional Vitals: Temp Pulse Resp BP Pulse Ox 97.8 F 72 15 104/72 92 09/07/17 15:11 09/07/17 15:11 09/07/17 15:11 09/07/17 15:11 09/07/17 15:11 General appearance: Present: cooperative, A&O X 3, morbidly obese, pleasant, no acute distress, answers questions appropriately - Head Head exam: Present: atraumatic, normocephalic - Eye Eye exam: Present: PERRL, conjuntiva pink, sclera anicteric Pupils: Present: PERRL - Neck Neck exam general surgery: Present: supple, trachea midline. Absent: lymphadenopathy - Respiratory Respiratory exam: Present: CTAB. Absent: accessory muscle use, rales, rhonchi, wheezes - Cardiovascular Cardiovascular exam: Present: RRR, +S1, +S2. Absent: diastolic murmur, gallop, rubs, systolic murmur - GI/Abdominal GI/Abdominal exam: Present: normal bowel sounds, soft, no peritoneal signs. Absent: distended, tenderness - Extremities Exam Extremities exam: Present: warm, radial pulses palpable and symmetrical. Absent : calf tenderness, cyanotic, pedal edema - Neurological Exam Neurological exam: Present: CN II-XII intact, oriented X3, no focal deficits. Absent: pronater drift, facial droop, speech deficit - Skin Skin exam: Present: dry, intact Internal Medicine: Result - Labs CBC & Chem 7: 09/07/17 00:14 09/07/17 00:14 Labs: Short CBC 09/07/17 Range/Units 00:14 WBC 8.0 (4.3-11.1) K/mcL Hgb 14.8 (11.5-15.4) g/dL Hct 45.6 H (35.3-44.9) % Plt Count 198 (140-400) K/mcL Neutrophils # 4.7 (1.6-8.9) K/mcL BMP 09/07/17 00:14 Sodium 134 L Potassium 4.1 Chloride 99 Carbon Dioxide 25 BUN 16 Creatinine 0.82 Glucose 240 H Calcium 9.5 Cardiac Enzymes 09/07/17 09/07/17 Range/Units 00:14 05:58 Troponin I 0.00 0.00 (0-0.03) ng/mL Liver Function 09/07/17 Range/Units 00:14 Total Bilirubin 0.4 (0.2-1.2) mg/dL AST 18 (5-34) Units/L ALT 22 (0-55) Units/L Alkaline Phosphatase 121 (38-126) Units/L Albumin 3.4 L (3.5-5.0) g/dL - ABG Interpretation ABG results: PT/INR, D-dimer PT 22.9 Seconds (9.4-12.1) H 09/07/17 00:14 D-Dimer 224 ng/mLFEU (0-500) 09/07/17 00:14 - Impressions Impressions Brain MRI 09/07/17 19:22 IMPRESSION: No acute intracranial abnormality. No acute infarct. D/ / Campos Gomez MD / Campos Gomez MD Interpreting Provider: Campos Gomez MD Consult Discharge Plan - Plan Referrals: Drake Ellington MD [Primary Care Provider] - 09/15/17 10:15 am
[2017-09-07] MEDS ORDERED: Warfarin perPT PO PRN (18:00)
[2017-09-07] MEDS ORDERED: *HR* Warfarin 7.5 MG TABLET PO ONE (18:00)
[2017-09-07] MEDS ORDERED: Insulin LISPRO 300 UNITS/3 ML VIAL SQ SCH (21:00)
[2017-09-08] MEDS: Acetaminophen 325 MG TABLET PO PRN (02:01)
[2017-09-08 02:28] LABS: Bilirubin,Urine Negative (Negative); Blood,Urine Small (Negative); Clarity,Urine Cloudy (Clear); Color,Urine Yellow (Yellow); Glucose,Urine (UA) Normal (Normal); Ketones,Urine Negative (Negative); Leukocyte Esterase,Urine Large (Negative); Nitrite,Urine Negative (Negative); PH,Urine 7.5 pH Units (5.0-8.0); Protein,Urine Trace mg/dL (Neg-Trace); Specific Gravity,Urine 1.015 (1.010-1.025); Urobilinogen,Urine Normal (Normal)
[2017-09-08 02:29] LABS: Bacteria,Urine Few per hpf (None-Few); Hyaline Casts,Urine None Seen per lpf (None-Few); RBC,Urine 50-100 per hpf (0-3); Squamous Epithelial Cell,Urine Moderate per lpf (None-Few); WBC,Urine TNTC per hpf (0-3)
[2017-09-08 05:03] LABS: Basophils % 0.4 %; Eosinophils # 0.1 K/mcL (0.0-0.6); Eosinophils % 1.3 %; Hematocrit 47.6 % (35.3-44.9); Hemoglobin 15.7 g/dL (11.5-15.4); Immature Granulocytes % 0.4 % (0-4); Lymphocytes # 2.6 K/mcL (0.6-4.6); Lymphocytes % 24.2 %; Mean Corpuscular Hemoglobin 27.3 pg (28.0-33.3); Mean Corpuscular Volume 82.8 fL (83.0-100.0); Mean Platelet Volume 11.6 fL (9.4-12.4); Monocytes # 0.5 K/mcL (0.0-1.3); Monocytes % 4.6 %; Neutrophils # 7.3 K/mcL (1.6-8.9); Platelet Count 203 K/mcL (140-400); Red Blood Count 5.75 M/mcL (3.82-4.97); Red Cell Distribution Width 13.2 % (11.5-14.5); Segmented Neutrophils % 69.1 %
[2017-09-08 05:12] LABS: Alanine Aminotransferase 22 Units/L (0-55); Albumin 3.4 g/dL (3.5-5.0); Albumin/Globulin Ratio 0.8 (1.1-2.2); Alkaline Phosphatase 132 Units/L (38-126); Aspartate Amino Transferase 16 Units/L (5-34); BUN/Creatinine Ratio 19 (6-26); Bilirubin,Total 0.5 mg/dL (0.2-1.2); Blood Urea Nitrogen 16 mg/dL (7-20); Calcium 9.6 mg/dL (8.6-10.8); Carbon Dioxide 27 mEq/L (19-29); Chloride 100 mEq/L (98-109); Globulin 4.3 g/dL (2.4-3.5); Glucose 217 mg/dL (70-99); Osmolality,Calculated 288 (280-300); Potassium 4.1 mEq/L (3.5-4.5); Sodium 135 mEq/L (136-145); Total Protein 7.7 g/dL (6.0-8.3); eGFR For African Americans > 60 (> 60); eGFR For Non-African Americans > 60 (> 60)
[2017-09-08 05:22] LABS: Prothrombin Time 21.9 Seconds (9.4-12.1)
[2017-09-08] MEDS: Pantoprazole 40 MG VIAL IVP SCH (08:45)
[2017-09-08] MEDS: Aspirin 81 MG TAB.CHEW PO SCH (08:45)
[2017-09-08] MEDS: diazePAM 5 MG TABLET PO SCH (08:46)
[2017-09-08] MEDS: Topiramate 25 MG TABLET PO SCH (08:46)
[2017-09-08] MEDS: Gabapentin 300 MG CAPSULE PO SCH (08:48)
[2017-09-08] MEDS: Loratadine 10 MG TABLET PO SCH (08:48)
[2017-09-08] MEDS: Furosemide 20 MG TABLET PO SCH (08:48)
[2017-09-08] MEDS: Insulin LISPRO 300 UNITS/3 ML VIAL SQ SCH ×2 (08:48→12:11)
[2017-09-08] MEDS: Insulin DETEMIR 100 UNIT/ML X5UNITS SQ SCH (10:10)
--- NOTE | 2017-09-08 11:02 | Discharge Summary ---
Date of Encounter: 09/08/17 Time of Encounter: 10:46 - Discharge Diagnosis (1) Paresthesia Priority: Primary Status: Acute Comments: Cristina Resendiz is a 42-year-old female with past medical history GTE's on Coumadin, hypertension, diabetes, morbid obesity and FRANCISCO who presented to [facility] on 09/06/2017 with complaints of slurred speech and left face numbness and tingling. She was placed in observation status for further workup and treatment. She underwent a complete neurological workup which was negative. She was discharged home in stable condition with outpatient follow-up. 1. Left face paresthesia: Presented with left face numbness/tingling and slurred speech. Head CT negative. Brain MRI negative for acute infarct. Bilateral carotid Dopplers essentially normal. Evaluated by neurology who does not suspect primary neurologic disorder. Symptoms waxing and waning throughout hospitalization but improved on day of discharge. No further neurological workup required at this time. Recommend outpatient follow-up with PCP within 1- 2 weeks. 2. Conversion disorder: Patient symptoms wax and wane and are not consistent. Neurologically intact with no deficits and able to ambulate independently at times however she will complain of left face numbness/tingling with inability to talk or smile. Complete neurologic workup negative as noted above. Evaluated by neurology who noted intermittent left face paresthesia possibly secondary to conversion disorder. She does have psychiatric history and follows with Dr. Leary (psychiatry). Patient also reports increased stressors at home. Continue home medications for depression and anxiety. Recommend outpatient follow-up with psychiatrist within 1-2 weeks. 3. Left heel abscess: diagnosed by PCP prior to presentation. Appears resolved on exam. No evidence of cellulitis, abscess. Stop ATB. 4. History VTE: Patient reports history of DVTs and pulmonary embolism. Continue home Coumadin. Follow-up with anticoagulation clinic as scheduled. 5. Diabetes: per hx. uncontrolled. Hgb A1c 10%. Blood sugars in 200s while inpatient. Increase home long-acting insulin. Recommend follow-up with PCP within 1-2 weeks. 6. Essential hypertension: per hx. BP controlled. Continue home BP medications. 7. Morbid obesity: per hx. lifestyle recommendations encouraged. (2) CAD (coronary artery disease) Priority: Primary Status: Chronic Qualifiers: Coronary Disease-Associated Artery/Lesion type: [place] artery [place] vs. transplanted heart: [place] heart Associated angina: with stable angina Qualified Code(s): I25.118 - Atherosclerotic heart disease of [place] coronary artery with other forms of angina pectoris (3) Diabetes mellitus Priority: Primary Status: Chronic Qualifiers: Diabetes mellitus type: type 2 Diabetes mellitus complication status: with unspecified complications Diabetes mellitus usp insulin use: with usp use Qualified Code(s): E11.8 - Type 2 diabetes mellitus with unspecified complications; Z79.4 - intermission coordinator (current) use of insulin (4) DVT (deep venous thrombosis) Priority: Primary Status: Chronic Qualifiers: DVT location: lower extremity Affected thrombotic vein of extremity: unspecified vein of extremity Chronicity: chronic Laterality: left Qualified Code(s): I82.502 - Chronic embolism and thrombosis of unspecified deep veins of left lower extremity (5) Hypertension Priority: Primary Status: Chronic Qualifiers: Hypertension type: essential hypertension Qualified Code(s): I10 - Essential (primary) hypertension (6) Morbid obesity Priority: Primary Status: Chronic - Discharge Medications Prescriptions: Insulin Glargine,Hum.rec.anlog [Tojhoana Solostlaney] 40 units SQ BID #1 insuln.pen Home Medications: Duloxetine HCl [Cymbalta] 60 mg PO BID 02/19/16 [History] Ergocalciferol (VITAMIN D2) [Vitamin D2 (50,000 UNIT)] 50,000 unit PO 2XW [History] Furosemide [Lasix] 20 mg PO BID 02/19/16 [History] Insulin ASPART [Novolog Flexpen] 0 unit SQ TID 02/19/16 [History] Liraglutide [Victoza 2-Raphael] 1.8 mg SQ DAILY 02/19/16 [History] Ranitidine HCl [Zantac] 150 mg PO BID 02/19/16 [History] Buspirone HCl [Buspar] 10 mg PO BID PRN 05/16/17 [History] Cetirizine HCl [Zyrtec] 10 mg PO DAILY 05/16/17 [History] Gabapentin [Neurontin] 600 mg PO TID 05/16/17 [History] Levothyroxine [Synthroid] 150 mcg PO QAM 05/16/17 [History] Losartan Potassium [Cozaar] 50 mg PO DAILY 05/16/17 [History] Nitroglycerin [Nitrostat] 0.4 mg SL Q5M PRN 05/16/17 [History] Omeprazole [PriLOSEC] 40 mg PO DAILY PRN 05/16/17 [History] Tizanidine HCl [Zanaflex] 4 mg PO Q12H PRN 05/16/17 [History] Topiramate [Topamax] 50 mg PO BID 05/16/17 [History] Aspirin 81 mg PO DAILY tab.chew 05/18/17 [Rx] Atorvastatin [Lipitor] 40 mg PO HS #30 tablet 05/18/17 [Rx] Metoprolol [Lopressor] 12.5 mg PO BID #30 tablet 05/18/17 [Rx] Mupirocin [Bactroban Oint] 1 appl TP BID 09/06/17 [History] Warfarin [Coumadin] 5 mg PO THSA 09/06/17 [History] Warfarin [Coumadin] 7.5 mg PO SUMOTUWEFR 09/06/17 [History] diazePAM [Valium] 5 mg PO BID 09/06/17 [History] Insulin Glargine,Hum.rec.anlog [Toujeo Solostar] 40 units SQ BID #1 insuln.pen 09/08/17 [Rx] Allergies/Adverse Reactions: 3 Allergy/AdvReac Type Severity Reaction Status Date / Time hydrocodone [From Vicodin] Allergy Swelling Verified 06/05/17 17:33 of Lip/Tongue/Throat Procedures/tests Complete & Pending: Procedures Performed prior 72 hours Category Date Time Status MR head/brain wo con [MR] Stat MRI 09/07/17 19:22 Completed ECG 12 lead ECG [ECG] Routine Y 09/06/17 18:35 Completed ECG 12 lead ECG [ECG] Stat Y 09/06/17 17:49 Completed EV carotid duplex imaging BI Routine Y 09/07/17 19:22 Completed EV venous imaging LE BI Routine Y 09/07/17 21:37 Completed Date of admission: 09/06/17 17:05 Primary care physician: Drake Ellington MD Consults: 09/06/17 19:41 PT [Consult to Physical Therapy] [CONS] Routine Comment: Evaluate, develop and implement POC Reason for Consult: Patient presents with report of left-sided weakness. Please assess for strength, stability, ambulation, and assistive needs for post- discharge planning. 09/06/17 19:43 OT [Consult to Occupational Therapy] [CONS] Routine Comment: Evaluate, develop and implement POC Reason for Consult: Patient presents with report of left-sided weakness. Please assess for strength, stability, ambulation, and assistive needs for post- discharge planning. 09/06/17 21:19 Consult to Neurology [CONS] Routine Consulting Provider: [facility] Reason for Consult: Patient presents with left-sided facial numbness and tingling extending to the neck. Slight speech deficit noted. CT head negative. MRI of the head/brain ordered. UE and LE strength equal on exam. No facial droop or pronator drift. Hx of DVT. D-dimer ordered. Call Completed: No 09/07/17 16:17 Consult to [facility] [CONS] Routine Reason for SW Consult: DrGerardo requested Discharging clinician: Bertha Perry Anticipated date of discharge: 09/08/17 - Patient Status Disposition: Home, Self-Care Condition: Good Functional capacity at discharge: independent ambulation Overall status at discharge: patient is back to baseline - Discharge Instructions Instructions: Diabetes Mellitus Type 2 in Adults (GEN) Follow Up With: Drake Ellington MD [Primary Care Provider] - 09/15/17 10:15 am Manju Ritchie MD [Partnered Physician] - - Diet and Activity Activity: increase activity as tolerated Diet: diabetic diet, low fat, low cholesterol Interval History: Seen and examined at bedside. She still with intermittent complaints of left- sided face numbness tingling. Says overall improved this morning. Discussed with patient and daughter at length regarding conversion disorder and how recent stressors could exacerbate neurological symptoms. Patient admits to being under increased stress at home. Daughter says plan is to limit so calls with family members. Patient does not want to go to SNF, so she would like to go home with home health care. Overall feels better and would like to discharge home today with outpatient follow-up. Hospital course: See assessment and plan for hospital course - Time Spent with Patient Total time spent providing and/or coordinating discharge services: Less than 30 minutes - Constitutional Vitals: Temp Pulse Resp BP Pulse Ox 98.1 F 72 16 118/71 96 09/08/17 07:52 09/08/17 07:52 09/08/17 07:52 09/08/17 07:52 09/08/17 07:52 General appearance: Present: cooperative, A&O X 3, morbidly obese, pleasant, no acute distress, answers questions appropriately - Head Head exam: Present: atraumatic, normocephalic - Eye Eye exam: Present: PERRL, conjuntiva pink, sclera anicteric Pupils: Present: PERRL - Neck Neck exam general surgery: Present: supple, trachea midline. Absent: lymphadenopathy - Respiratory Respiratory exam: Present: CTAB. Absent: accessory muscle use, rales, rhonchi, wheezes - Cardiovascular Cardiovascular exam: Present: RRR, +S1, +S2. Absent: diastolic murmur, gallop, rubs, systolic murmur - GI/Abdominal GI/Abdominal exam: Present: normal bowel sounds, soft, no peritoneal signs. Absent: distended, tenderness - Extremities Exam Extremities exam: Present: warm, radial pulses palpable and symmetrical. Absent : calf tenderness, cyanotic, pedal edema - Neurological Exam Neurological exam: Present: CN II-XII intact, oriented X3, no focal deficits. Absent: pronater drift, facial droop, speech deficit - Skin Skin exam: Present: dry, intact
[2017-09-08 15:54] VITALS: BP 109/73
[2017-09-08] MEDS ORDERED: *HR* Warfarin 7.5 MG TABLET PO ONE (18:00)
--- NOTE | 2017-09-12 19:30 | Event Note ---
Date of Encounter: 09/12/17 Time of Encounter: 14:00 Infection control report received showing urine culture positive for gram- negative rods after patient was discharged. Called patient on cell phone from summary/demographics information on 09/12/17. Instructed patient to discontinue current antibiotic and new antibiotic of Macrobid (sensitive per C& S report) 100 mg twice a day 5 days would be called into [facility] per patient. Phone call into [facility] completed on 09/12/17.
== END 2017-09-08 16:24 | disposition home or self-care (01) ==
LOC: 3BNU 15:36 → EMEROO 15:36 → 3BNU 18:09
PROVIDERS: ADMIT Nurse Practitioner Family; ATTEND Registered Nurse

== ENCOUNTER 2018-10-17 19:55 | Observation (INO) ==
--- NOTE | 2018-10-17 20:10 | Emergency Department Note ---
Disposition Clinical Impression: CVA (cerebral vascular accident) Qualifiers: CVA mechanism: other Qualified Code(s): I63.8 - Other cerebral infarction Disposition: Admitted As Inpatient Condition: Fair Referrals: Drake Ellington MD [Primary Care Provider] - Forms: ED Satisfaction Letter Time of Disposition: 23:57 General Adult HPI - General Chief complaint: ED Neuro Symptoms/Deficit Stated complaint: stroke symptoms lkw 1930 Time Seen by Provider: 10/17/18 20:05 Source: patient Mode of arrival: ambulatory Limitations: no limitations Nursing Notes Reviewed: Yes Vital Signs Reviewed: Yes - History of Present Illness HPI Narrative: Patient is a 43-year-old female that presents the emergency department with concern for possible strokelike symptoms. Patient states that her last known well was at 1930 today. Patient states that she has a previous history of a mini stroke. Patient states that she felt like she was having right-sided facial numbness as well as right-sided numbness in the upper and lower extremity and right sided weakness on the right upper and lower extremities. Patient states that this is similar to when she had her previous mini stroke. - Related Data Home Medications Medication Instructions Recorded Confirmed Duloxetine HCl [Cymbalta] 60 mg PO BID 02/19/16 09/06/17 Ergocalciferol (VITAMIN D2) 50,000 unit PO 2XW 02/19/16 09/06/17 [Vitamin D2 (50,000 UNIT)] Furosemide [Lasix] 20 mg PO BID 02/19/16 09/06/17 Insulin ASPART [Novolog Flexpen] 0 unit SQ TID 02/19/16 09/06/17 Liraglutide [Victoza 2-Raphael] 1.8 mg SQ DAILY 02/19/16 09/06/17 raNITIdine HCl [Zantac] 150 mg PO BID 02/19/16 09/06/17 Buspirone HCl [Buspar] 10 mg PO BID PRN 05/16/17 09/06/17 Cetirizine HCl [Zyrtec] 10 mg PO DAILY 05/16/17 09/06/17 Gabapentin [Neurontin] 600 mg PO TID 05/16/17 09/06/17 Levothyroxine [Synthroid] 150 mcg PO QAM 05/16/17 09/06/17 Losartan Potassium [Cozaar] 50 mg PO DAILY 05/16/17 09/06/17 Nitroglycerin [Nitrostat] 0.4 mg SL Q5M PRN 05/16/17 09/06/17 Omeprazole [PriLOSEC] 40 mg PO DAILY PRN 05/16/17 09/06/17 Tizanidine HCl [Zanaflex] 4 mg PO Q12H PRN 05/16/17 09/06/17 Topiramate [Topamax] 50 mg PO BID 05/16/17 09/06/17 Mupirocin [Bactroban Oint] 1 appl TP BID 09/06/17 09/06/17 Warfarin [Coumadin] 5 mg PO THSA 09/06/17 09/06/17 Warfarin [Coumadin] 7.5 mg PO SUMOTUWEFR 09/06/17 09/06/17 diazePAM [Valium] 5 mg PO BID 09/06/17 09/06/17 Previous Rx's Medication Instructions Recorded Aspirin 81 mg PO DAILY tab.chew 05/18/17 Atorvastatin [Lipitor] 40 mg PO HS #30 tablet 05/18/17 Metoprolol [Lopressor] 12.5 mg PO BID #30 tablet 05/18/17 Insulin Glargine,Hum.rec.anlog 40 units SQ BID #1 insuln.pen 09/08/17 [Toujeo Solostar] Doxycycline 100 mg PO BID 10 Days #20 capsule 03/27/18 Fluconazole [Diflucan] 150 mg PO ONCE #1 tab 03/27/18 Allergies Allergy/AdvReac Type Severity Reaction Status Date / Time hydrocodone [From Vicodin] Allergy Swelling Verified 10/10/18 17:25 of Lip/Tongue/Throat nitrofurantoin Allergy Rash Verified 10/10/18 17:25 [From Macrobid] All systems ED: reviewed and negative except as stated. Cardiovascular: Denies: chest pain Respiratory: Denies: dyspnea Gastrointestinal: Denies: abdominal pain Neurological: Reports: weakness, numbness Past Medical History - Past Medical History Medical history: Reports: atrial fibrillation, diabetes, hypertension, thyroid disease Surgical history: Reports: herniorrhaphy, orthopedic, other Psychiatric history: Reports: anxiety, depression METAL MIXER history: Reports: bilateral tubal ligation - Social History Smoking Status: Never smoker Smokeless Tobacco Status: No Alcohol use: Reports: none Drug use: Reports: none Physical Exam - General Limitations: no limitations General appearance: alert, in no apparent distress - Head Head exam: atraumatic, normocephalic - Eye Eye exam: Present: normal appearance, EOMI - Neck Neck exam: Present: normal inspection, full ROM, trachea midline - Respiratory Respiratory exam: Present: normal lung sounds bilaterally. Absent: respiratory distress, wheezes - Cardiovascular Cardiovascular exam: Present: regular rate, normal rhythm, normal heart sounds, +S1, +S2 - Abdominal Exam Abdominal exam: Present: soft, Non-Tender, normal bowel sounds - Neurological Exam Neurological exam: Present: alert, oriented X3 - Expanded Neurological Exam Cranial nerves: EOM function (II, III, IV, ): Normal, facial sensation (V): Abnormal Right, facial palsy (VII): Normal (Patient will not smile so unable to assess symmetry of the patient's mouth.), gag reflex (IX): Normal, spinal accessory function (XI): Normal, tongue deviation (XII): Normal Cerebellar function: finger to nose: Normal, heel to pina: Normal Motor strength - LUE: 5/5 Motor strength - RUE: 4/5 Motor strength - LLE: 5/5 Motor strength - RLE: 4/5 Upper motor neuron exam: pronator drift: Present of right Sensory exam upper extremity: light touch: Abnormal Right Sensory exam lower extremity: light touch: Abnormal Right Coma Scale Eye Opening: Spontaneous Coma Scale Motor Response: Obeys Commands Coma Scale Verbal Response: Oriented Coma Scale Total: 15 - Psychiatric Psychiatric exam: Present: normal affect, normal mood - Skin Skin exam: Present: warm, dry, intact Course Vital Signs Temperature 98.1 F 10/17/18 20:01 Pulse Rate 89 10/17/18 20:01 Respiratory Rate 22 10/17/18 20:01 Blood Pressure 133/83 10/17/18 20:01 O2 Sat by Pulse Oximetry 96 10/17/18 20:01 Temperature 98.1 F 10/17/18 20:01 Pulse Rate 85 10/17/18 21:51 Respiratory Rate 16 10/17/18 21:51 Blood Pressure 107/65 10/17/18 21:51 O2 Sat by Pulse Oximetry 99 10/17/18 20:36 Oxygen Delivery Oxygen Delivery Room Air Medical Decision Making - [facility] Narrative Medical decision making narrative: Harrietta the patient's symptom a stroke alert was called. The patient has an NIH of 5 at this time. Patient is on Coumadin for reports of blood clots and age fibrillation. This to be an absolute contraindication for receiving TPA. I spoke with [place] radiology at 2020 and they said that there is no acute findings on the CT scan. The patient is on her Coumadin however her INR is 1.6 which is less than the 1.7 for the absolute contraindication for TPA. The stroke neurologist Dr. Langley had initially recommended that the patient have TPA given. At that time the patient's NIH was 3. The patient's symptoms have been improving. After lengthy discussion of the risks and benefits with the TPA with the patient, her son and the patient's they decided that they did not want DTPA to be administered. A CTA of the head and neck will be obtained to rule out large vessel occlusion or stenosis. Patient will require admission to the hospital for further evaluation and management of her stroke symptoms. - Medical Records Medical records reviewed: Yes I reviewed the patient's medical records. - Lab Data Lab results reviewed: Yes I reviewed the patient's lab results. Result diagrams: 10/17/18 20:10 10/17/18 20:10 Lab Results 10/17/18 10/17/18 10/17/18 Range/Units 20:10 20:10 20:10 WBC 9.9 (4.3-11.1) K/mcL RBC 5.58 H (3.82-4.97) M/mcL Hgb 15.3 (11.5-15.4) g/dL Hct 46.3 H (35.3-44.9) % MCV 83.0 (83.0-100.0) fL MCH 27.4 L (28.0-33.3) pg MCHC 33.0 (31.6-35.5) g/dL RDW 13.0 (11.5-14.5) % Plt Count 215 (140-400) K/mcL MPV 11.8 (9.4-12.4) fL PT 17.9 H (9.4-12.1) Seconds INR 1.6 APTT 30.4 (26.0-36.0) Seconds Sodium 133 L (136-145) mEq/L Potassium 4.1 (3.5-5.1) mEq/L Chloride 98 (98-107) mEq/L Carbon Dioxide 27 (23-29) mEq/L BUN 14 (6-20) mg/dL Creatinine 0.86 (0.60-1.20) mg/dL Est GFR ( Amer) > 60 (> 60) Est GFR (Non-Af Amer) > 60 (> 60) BUN/Creatinine Ratio 16 (6-26) Glucose 189 H (70-105) mg/dL Calculated Osmolality 282 (280-300) Calcium 9.8 (8.6-10.3) mg/dL Troponin I < 0.03 (< 0.04) ng/mL - Radiology Data Radiology results reviewed: Yes I reviewed the patient's radiology results. Head CT 10/17/18 20:05 IMPRESSION: No acute intracranial abnormality. D/ / Sherman Wadsworth MD / Sherman Wadsworth MD Interpreting Provider: Sherman Wadsworth MD Head CTA 10/17/18 20:56 IMPRESSION: No flow limiting stenosis or branch occlusion detected within the head or neck. Incidentally noted thyromegaly and aberrant right subclavian artery. D/ / Sharath Love MD / Sharath Love MD Interpreting Provider: Sharath Love MD Neck CTA 10/17/18 20:56 IMPRESSION: No flow limiting stenosis or branch occlusion detected within the head or neck. Incidentally noted thyromegaly and aberrant right subclavian artery. D/ / Sharath Love MD / Sharath Love MD Interpreting Provider: Sharath Love MD - EKG Data EKG #1 EKG attestation: Yes I reviewed and interpreted this EKG. EKG results narrative: EKG shows a sinus rhythm at 90 bpm, GA interval 135, QRS duration of 136, QTc of 465. No stemi on EKG NIH Stroke Scale - Level of Consciousness LOC: Alert - LOC Questions LOC Questions: Answers both correctly - LOC Commands LOC Commands: Performs both correctly - Best Gaze Best Gaze: Normal - Visual Visual: No visual loss - Facial Palsy Facial Palsy: Normal (Patient will not smile however there is no obvious asymmetries at this time.) - Motor Arms Motor Arm-Left: No drift for 10 seconds Motor Arm-Right: Drift, does NOT hit bed - Motor Legs Motor Leg-Left: No drift for 5 seconds Motor Leg-Right: Some effort against gravity, limb drifts to bed - Limb Ataxia Limb Ataxia: Absent of affected limb too weak to perform exam - Sensory Sensory: Mild to moderate loss, "not as sharp" - Best Language Best Language: No aphasia - Dysarthria Dysarthria: Mild, slurs some words - Extinction and Inattention Extinction and Inattention: Normal - NIHSS Total Score NIHSS Total Score: 5
[2018-10-17 20:19] LABS: Hematocrit 46.3 % (35.3-44.9); Hemoglobin 15.3 g/dL (11.5-15.4); Mean Corpuscular Hemoglobin 27.4 pg (28.0-33.3); Mean Platelet Volume 11.8 fL (9.4-12.4); Platelet Count 215 K/mcL (140-400); Red Blood Count 5.58 M/mcL (3.82-4.97)
[2018-10-17 20:29] LABS: Activated Partial Thrombo Time 30.4 Seconds (26.0-36.0)
[2018-10-17 20:38] LABS: INR 1.6; Prothrombin Time 17.9 Seconds (9.4-12.1)
[2018-10-17 20:39] LABS: BUN/Creatinine Ratio 16 (6-26); Blood Urea Nitrogen 14 mg/dL (6-20); Calcium 9.8 mg/dL (8.6-10.3); Carbon Dioxide 27 mEq/L (23-29); Chloride 98 mEq/L (98-107); Glucose 189 mg/dL (70-105); Osmolality,Calculated 282 (280-300); Potassium 4.1 mEq/L (3.5-5.1); Sodium 133 mEq/L (136-145); eGFR For Non-African Americans > 60 (> 60)
[2018-10-17 20:40] LABS: Troponin I < 0.03 ng/mL (< 0.04)
[2018-10-17] MEDS ORDERED: Isovue-370 500 ML INFUS..BTL IV ONE (20:56)
--- NOTE | 2018-10-17 21:08 | Emergency Department Note ---
Disposition Clinical Impression: CVA (cerebral vascular accident) Disposition: Admitted As Inpatient Condition: Serious Referrals: Drake Ellington MD [Primary Care Provider] - Forms: ED Satisfaction Letter General Adult HPI - General Chief complaint: ED Neuro Symptoms/Deficit Stated complaint: stroke symptoms lkw 1929 Time Seen by Provider: 10/17/18 20:05 Source: patient Mode of arrival: ambulatory Limitations: no limitations - History of Present Illness Pain Scale: 4 - Related Data Home Medications Medication Instructions Recorded Confirmed Duloxetine HCl [Cymbalta] 60 mg PO BID 02/19/16 09/06/17 Ergocalciferol (VITAMIN D2) 50,000 unit PO 2XW 02/19/16 09/06/17 [Vitamin D2 (50,000 UNIT)] Furosemide [Lasix] 20 mg PO BID 02/19/16 09/06/17 Insulin ASPART [Novolog Flexpen] 0 unit SQ TID 02/19/16 09/06/17 Liraglutide [Victoza 2-Raphael] 1.8 mg SQ DAILY 02/19/16 09/06/17 raNITIdine HCl [Zantac] 150 mg PO BID 02/19/16 09/06/17 Buspirone HCl [Buspar] 10 mg PO BID PRN 05/16/17 09/06/17 Cetirizine HCl [Zyrtec] 10 mg PO DAILY 05/16/17 09/06/17 Gabapentin [Neurontin] 600 mg PO TID 05/16/17 09/06/17 Levothyroxine [Synthroid] 150 mcg PO QAM 05/16/17 09/06/17 Losartan Potassium [Cozaar] 50 mg PO DAILY 05/16/17 09/06/17 Nitroglycerin [Nitrostat] 0.4 mg SL Q5M PRN 05/16/17 09/06/17 Omeprazole [PriLOSEC] 40 mg PO DAILY PRN 05/16/17 09/06/17 Tizanidine HCl [Zanaflex] 4 mg PO Q12H PRN 05/16/17 09/06/17 Topiramate [Topamax] 50 mg PO BID 05/16/17 09/06/17 Mupirocin [Bactroban Oint] 1 appl TP BID 09/06/17 09/06/17 Warfarin [Coumadin] 5 mg PO THSA 09/06/17 09/06/17 Warfarin [Coumadin] 7.5 mg PO SUMOTUWEFR 09/06/17 09/06/17 diazePAM [Valium] 5 mg PO BID 09/06/17 09/06/17 Previous Rx's Medication Instructions Recorded Aspirin 81 mg PO DAILY tab.chew 05/18/17 Atorvastatin [Lipitor] 40 mg PO HS #30 tablet 05/18/17 Metoprolol [Lopressor] 12.5 mg PO BID #30 tablet 05/18/17 Insulin Glargine,Hum.rec.anlog 40 units SQ BID #1 insuln.pen 09/08/17 [Toujeo Solostar] Doxycycline 100 mg PO BID 10 Days #20 capsule 03/27/18 Fluconazole [Diflucan] 150 mg PO ONCE #1 tab 03/27/18 Allergies Allergy/AdvReac Type Severity Reaction Status Date / Time hydrocodone [From Vicodin] Allergy Swelling Verified 10/10/18 17:25 of Lip/Tongue/Throat nitrofurantoin Allergy Rash Verified 10/10/18 17:25 [From Macrobid] Cardiovascular: Denies: chest pain Respiratory: Denies: dyspnea Gastrointestinal: Denies: abdominal pain Neurological: Reports: weakness, numbness Past Medical History - Past Medical History Medical history: Reports: atrial fibrillation, diabetes, hypertension, thyroid disease Surgical history: Reports: herniorrhaphy, orthopedic, other Psychiatric history: Reports: anxiety, depression 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 - Social History Smoking Status: Never smoker Smokeless Tobacco Status: No Alcohol use: Reports: none Drug use: Reports: none Physical Exam - General Limitations: no limitations General appearance: alert, in no apparent distress Course Vital Signs Temperature 98.1 F 10/17/18 20:01 Pulse Rate 89 10/17/18 20:01 Respiratory Rate 22 10/17/18 20:01 Blood Pressure 133/83 10/17/18 20:01 O2 Sat by Pulse Oximetry 96 10/17/18 20:01 Temperature 98.1 F 10/17/18 20:01 Pulse Rate 90 10/17/18 21:03 Respiratory Rate 23 10/17/18 21:03 Blood Pressure 144/106 10/17/18 21:03 O2 Sat by Pulse Oximetry 99 10/17/18 20:36 Oxygen Delivery Oxygen Delivery Room Air Medical Decision Making - MDM Narrative Medical decision making narrative: I did speak with the consulting neurologist from [facility]. Patient has elected to not do TPA. She does make her own medical decisions. She consulted with her as well as her son. She also consulted with us. We provided her with the information on the TPA. She is chronically on Coumadin but her INR was subtherapeutic. She is on Coumadin for a history of A. fib with DVT. She does have a [place] filter. All this was discussed with the neurologist as well as her CT findings. I felt like her symptoms seem to be improving. Specifically, I felt like her speech had improved since arrival. Her NIH stroke scale went from 6 to 3. Neurology wanted us to do a CTA head and neck. We have ordered that. - Medical Records Medical records reviewed: Yes I reviewed the patient's medical records. - Lab Data Lab results reviewed: Yes I reviewed the patient's lab results. Result diagrams: 10/17/18 20:10 10/17/18 20:10 Lab Results 10/17/18 10/17/18 10/17/18 Range/Units 20:10 20:10 20:10 WBC 9.9 (4.3-11.1) K/mcL RBC 5.58 H (3.82-4.97) M/mcL Hgb 15.3 (11.5-15.4) g/dL Hct 46.3 H (35.3-44.9) % MCV 83.0 (83.0-100.0) fL MCH 27.4 L (28.0-33.3) pg MCHC 33.0 (31.6-35.5) g/dL RDW 13.0 (11.5-14.5) % Plt Count 215 (140-400) K/mcL MPV 11.8 (9.4-12.4) fL PT 17.9 H (9.4-12.1) Seconds INR 1.6 APTT 30.4 (26.0-36.0) Seconds Sodium 133 L (136-145) mEq/L Potassium 4.1 (3.5-5.1) mEq/L Chloride 98 (98-107) mEq/L Carbon Dioxide 27 (23-29) mEq/L BUN 14 (6-20) mg/dL Creatinine 0.86 (0.60-1.20) mg/dL Est GFR ( Amer) > 60 (> 60) Est GFR (Non-Af Amer) > 60 (> 60) BUN/Creatinine Ratio 16 (6-26) Glucose 189 H (70-105) mg/dL Calculated Osmolality 282 (280-300) Calcium 9.8 (8.6-10.3) mg/dL Troponin I < 0.03 (< 0.04) ng/mL - Radiology Data Radiology results reviewed: Yes I reviewed the patient's radiology results. Critical Care Time Critical Care Time: Yes Total Critical Care Time: 45 Attestation: Critical care time of 45 minutes spent in medical management of acute CVA. As well as consultation with [facility] neurology. Attestation Statement - Attestation Attestation: I examined this patient and my medical decision-making was reviewed with the Resident Physician. I agree with the documented findings, disposition and treatment plan as described except to the extent set forth below. 43-year-old female presented to the emergency room for neurological deficits. Last known well time was 1929. She had noticed some right hand numbness involving the entire hand and all 5 fingers as well as right facial numbness. She states the right facial numbness was involving the right. Oral lips as well as part of her mouth and teeth. She denied any left face and left arm or left leg involvement. She is clinically blind. She denies any new vision complaints. She thought her speech was altered and so did her family. No significant weakness involving the right upper or lower extremity as compared to the left. We did a CT head that was negative. No acute intracranial abnormality. We consulted with [facility] neurology telemetry-stroke system. He felt like she was improving but that she was a candidate for TPA. He along with myself and Dr. Carver gave the patient all of the options of possible TPA treatment
[2018-10-17] MEDS ORDERED: Aspirin 81 MG TAB.CHEW PO STA (22:02)
[2018-10-18] MEDS ORDERED: Naloxone 0.4 MG/ML INJ IVP PRN (01:26)
[2018-10-18] MEDS ORDERED: 0.9 % Sodium Chloride 1,000 ML IVC SCH (01:30)
[2018-10-18] MEDS ORDERED: Dextrose Gel 15 GM/37.5 ML TUBE PO PRN ×2 (01:52)
[2018-10-18] MEDS ORDERED: D5% in Water 1,000 ML IVC PRN (01:52)
[2018-10-18] MEDS ORDERED: *HR* Dextrose 50 % in Water (Syg) 50 ML SYRINGE IVP PRN (01:52)
--- NOTE | 2018-10-18 02:20 | Internal Med History&Physical ---
Date of Encounter: 10/17/18 Time of Encounter: 23:45 Internal Medicine - H&P: HPI Chief complaint: Stroke Like Symptoms Admitted From: Home Plans for Post Hospital Care: Home History of present illness: Ms. Resendiz is a 43 year old female with past medical history significant for Afib, hypertension, DVT, PE with IVC filter, thyroid disease, depression, and anxiety who presents for right hand and right facial numbness and tingling starting tonight around 7:30. Shortly after she noticed having right-sided weakness and slurred speech. Denies any other neurological deficit, chest pain, shortness of breath, nausea, vomiting, bowel, or bladder changes. Patient is legally blind at baseline secondary to diabetes but denies any acute vision changes. Denies exacerbating or alleviating factors. Reports history of "mini stroke" in August 2017 with brain MRI showing no acute intracranial abnormality and no acute infarct. States symptoms are similar to previous episode although last time involved her left side. Also reports having intermittent headache since last which she reports is not unusual for her. Stroke alert was called in ER with [facility] neurology telemetry stroke system who recommended TPA and CTA of head and neck. Patient and family declined TPA due to risk associated with treatment and currently being anticoagulated with Coumadin. Head CT without acute intracranial abnormality. Head and neck CTA without flow limiting stenosis or branch occlusion. Symptoms reportedly improved in ER with NIH stroke scale going from 6 to 3 on reassessment. ER reported EKG as sinus rhythm. Reports last INR check was in June with next check being scheduled in October. Checks blood sugars daily at home and have been averaging 150-160. Checks blood pressures daily at home and systolic has been averaging 120. Past Med Surg Social Fam HX - Past Medical History Medical history: atrial fibrillation, diabetes, hypertension, thyroid disease Additional medical history: Pancreatitis Psychiatric history: anxiety, depression - Past Surgical History Surgical History: herniorrhaphy, orthopedic, other Additional surgical history: Paulina Filter - Social History Smoking Status: Never smoker Smokeless Tobacco Status: No Alcohol use: none Drug use: none - Family History Mother Adopted: Yes Family Member Ethnicity: Non- Living Status: Still Living Hx Family Cardiac Disorders: Yes (CHF mother) Hx Family Respiratory Disorders: No Hx Family Cancer: Yes (mother breast) Hx Family GI Disorders: No Hx Family Genitourinary Disorders: No Hx Family Endocrine Disorder: Yes (Mother thyroid dm) Hx Family Musculoskeletal Disorders: No Hx Family Neuromuscular Disorders: No Hx Family Neurologic Disorders: No Hx Family HEENT Disorders: No Hx Family Autoimmune Disorders: No Hx Family Reproductive Disorders: No Hx Family Psychosocial Disorders: No Hx Family Medical Disorders: No Sister Family Member Ethnicity: Non- Hx Family Cardiac Disorders: Yes (CHF) Internal Medicine - H&P: Meds Duloxetine HCl [Cymbalta] 60 mg PO BID 02/19/16 [History] Ergocalciferol (VITAMIN D2) [Vitamin D2 (50,000 UNIT)] 50,000 unit PO 2XW 02/19/16 [History] Furosemide [Lasix] 20 mg PO BID 02/19/16 [History] Insulin ASPART [Novolog Flexpen] 0 unit SQ TID 02/19/16 [History] Liraglutide [Victoza 2-Raphael] 1.8 mg SQ DAILY 02/19/16 [History] raNITIdine HCl [Zantac] 150 mg PO BID 02/19/16 [History] Buspirone HCl [Buspar] 10 mg PO BID PRN 05/16/17 [History] Cetirizine HCl [Zyrtec] 10 mg PO DAILY 05/16/17 [History] Gabapentin [Neurontin] 600 mg PO TID 05/16/17 [History] Levothyroxine [Synthroid] 150 mcg PO QAM 05/16/17 [History] Losartan Potassium [Cozaar] 50 mg PO DAILY 05/16/17 [History] Nitroglycerin [Nitrostat] 0.4 mg SL Q5M PRN 05/16/17 [History] Omeprazole [PriLOSEC] 40 mg PO DAILY PRN 05/16/17 [History] Tizanidine HCl [Zanaflex] 4 mg PO Q12H PRN 05/16/17 [History] Topiramate [Topamax] 50 mg PO BID 05/16/17 [History] Aspirin 81 mg PO DAILY tab.chew 05/18/17 [Rx] Atorvastatin [Lipitor] 40 mg PO HS #30 tablet 05/18/17 [Rx] Metoprolol [Lopressor] 12.5 mg PO BID #30 tablet 05/18/17 [Rx] Mupirocin [Bactroban Oint] 1 appl TP BID 09/06/17 [History] Warfarin [Coumadin] 5 mg PO THSA 09/06/17 [History] Warfarin [Coumadin] 7.5 mg PO SUMOTUWEFR 09/06/17 [History] diazePAM [Valium] 5 mg PO BID 09/06/17 [History] Insulin Glargine,Hum.rec.anlog [Ronan Leeostar] 40 units SQ BID #1 insuln.pen 09/08/17 [Rx] Doxycycline 100 mg PO BID 10 Days #20 capsule 03/27/18 [Rx] Fluconazole [Diflucan] 150 mg PO ONCE #1 tab 03/27/18 [Rx] Allergy/AdvReac Type Severity Reaction Status Date / Time hydrocodone [From Vicodin] Allergy Swelling Verified 10/10/18 17:25 of Lip/Tongue/Throat nitrofurantoin Allergy Rash Verified 10/10/18 17:25 [From Macrobid] All Systems PM: A 10-system review of systems was performed and is negative for pertinent findings except as documented above in the HPI. - Constitutional Vitals: Temp Pulse Resp BP Pulse Ox 98.1 F 83 16 110/82 94 10/18/18 01:27 10/18/18 01:27 10/18/18 01:27 10/18/18 01:27 10/18/18 01:27 Exam: General: Alert and oriented. Skin:Normal color, no rash, no lesions. HEENT:Pupils equal, round and reactive. Cardiovascular:Heart sounds distant, no rubs, murmurs or gallops. No JVD. Pulse regular. Lungs:Normal breath sounds, no wheezes or crackles. Abdomen:Soft, non-tender, no rigidity. Extremities:No deformity, tenderness, or clubbing. Non pitting bilateral lower extremity edema noted. Neurological:Normal cognition. GCS 15. NIHSS 3 (1 for dysarthria, 1 for decreased sensation, 1 for right arm drift). Patient currently will not smile but no assymetry noted. Right upper and lower extremity strength 4/5. Pulses:Carotid and radial pulses normal +2. Rest of the physical exam is non contributory. Internal Med - H&P Results - Labs CBC & Chem 7: 10/17/18 20:10 10/17/18 20:10 Labs: Short CBC 10/17/18 Range/Units 20:10 WBC 9.9 (4.3-11.1) K/mcL Hgb 15.3 (11.5-15.4) g/dL Hct 46.3 H (35.3-44.9) % Plt Count 215 (140-400) K/mcL BMP 10/17/18 20:10 Sodium 133 L Potassium 4.1 Chloride 98 Carbon Dioxide 27 BUN 14 Creatinine 0.86 Glucose 189 H Calcium 9.8 Cardiac Enzymes 10/17/18 Range/Units 20:10 Troponin I < 0.03 (< 0.04) ng/mL - Impressions ITS Impressions Head CT 10/17/18 20:05 IMPRESSION: No acute intracranial abnormality. D/ / Sherman Wadsworth MD / Sherman Wadsworth MD Interpreting Provider: Sherman Wadsworth MD Head CTA 10/17/18 20:56 IMPRESSION: No flow limiting stenosis or branch occlusion detected within the head or neck. Incidentally noted thyromegaly and aberrant right subclavian artery. D/ / Sharath Love MD / Sharath Love MD Interpreting Provider: Sharath Love MD Neck CTA 10/17/18 20:56 IMPRESSION: No flow limiting stenosis or branch occlusion detected within the head or neck. Incidentally noted thyromegaly and aberrant right subclavian artery. D/ / Sharath Love MD / Sharath Love MD Interpreting Provider: Sharath Love MD - Assessment and plan (1) Stroke-like symptom Current Visit: Yes Status: Acute Assessment and plan: MRI ordered. Please note patient with IVC filter but has had previous MRI completed in August 2017. Physical, Occupational, and Speech Therapy eval ordered. NPO until Speech Therapy eval. MIVF at 50/hr. NIHSS ordered. Fall Precautions. (2) Subtherapeutic anticoagulation Current Visit: Yes Status: Acute Assessment and plan: Continue coumadin, pharmacy to dose. (3) Hypertension Current Visit: Yes Status: Acute Assessment and plan: Continue home medications once verified. Qualifiers: Hypertension type: unspecified Qualified Code(s): I10 - Essential (primary) hypertension (4) Diabetes mellitus Current Visit: Yes Status: Chronic Assessment and plan: Hold home medications. Accucheck q6. Low dose sliding scale insulin q6. 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 - Time Spent With Patient Total time spent is greater than 50% in coordination of care (as documented) at patient's floor/unit and/or counseling patient: - VTE Reasons for not Prescribing Prophylaxis: Not indicated-Anticoagulated or INR therapeutic
[2018-10-18] MEDS ORDERED: Acetaminophen IV 500 MG/50 ML INFUS..BTL IVPB ONE (03:51)
[2018-10-18 05:47] LABS: Basophils % 0.5 %; Eosinophils # 0.2 K/mcL (0.0-0.6); Eosinophils % 2.3 %; Hematocrit 42.2 % (35.3-44.9); Hemoglobin 13.8 g/dL (11.5-15.4); Immature Granulocytes % 0.4 % (0-4); Lymphocytes # 2.4 K/mcL (0.6-4.6); Lymphocytes % 31.1 %; Mean Corpuscular HGB Conc 32.7 g/dL (31.6-35.5); Mean Corpuscular Hemoglobin 27.3 pg (28.0-33.3); Mean Corpuscular Volume 83.6 fL (83.0-100.0); Mean Platelet Volume 11.9 fL (9.4-12.4); Monocytes # 0.5 K/mcL (0.0-1.3); Monocytes % 6.2 %; Neutrophils # 4.6 K/mcL (1.6-8.9); Platelet Count 158 K/mcL (140-400); Red Blood Count 5.05 M/mcL (3.82-4.97); Red Cell Distribution Width 13.2 % (11.5-14.5); Segmented Neutrophils % 59.5 %
[2018-10-18 05:53] LABS: INR 1.6; Prothrombin Time 18.2 Seconds (9.4-12.1)
[2018-10-18 06:12] LABS: BUN/Creatinine Ratio 18 (6-26); Blood Urea Nitrogen 13 mg/dL (6-20); Carbon Dioxide 24 mEq/L (23-29); Chloride 102 mEq/L (98-107); Glucose 171 mg/dL (70-105); Osmolality,Calculated 286 (280-300); Potassium 3.9 mEq/L (3.5-5.1); Sodium 136 mEq/L (136-145); eGFR For Non-African Americans > 60 (> 60)
[2018-10-18] MEDS: Insulin LISPRO 300 UNITS/3 ML VIAL SQ SCH ×2 (07:05→13:18)
[2018-10-18 08:11] VITALS: BP 117/78
--- NOTE | 2018-10-18 09:16 | Electrocardiograph Report ---
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
--- NOTE | 2018-10-18 11:16 | Neurology - Consult Note ---
<Alfonso Roblero - Last Filed: 10/18/18 17:22> Date of Encounter: 10/18/18 Time of Encounter: 11:16 Assessment and Plan (1) Stroke-like symptom Status: Acute Patient with right hand and right facial numbness, tingling, right-sided weakness and slurred speech since 7:30 PM last night. Patient had previous CVA in August 2017 with symptoms involving her left side. Upon arrival, stroke alert was called in ED. Head CT revealed no acute intracranial abnormality. [facility] recommended TPA and CTA of head and neck. Patient and family declined TPA due to risk associated with treatment and currently being anticoagulated with Coumadin. Head and neck CTA revealed no flow limiting stenosis or branch occlusion. MRI brain revealed no acute infarct or findings to explain the patient's headaches and numbness. Echo revealed LVEF 60% with indeterminate diastolic function. PT/OT consulted. Patient was started on Aspirin 81mg daily, continue Coumadin Lipid panel reviewed, resume home statin Her symptoms have improved with mild residual numbness on the right hand and decreased clean up helper banquet strength compared to left. Recommend MRI of neck to r/o cervical pathology. (2) Intractable migraine without aura and without status migrainosus Status: Chronic Patient is on Topamax for migraines She reports symptoms not relieved by Topamax 100 mg daily or after receiving Toradol and Phenergan at urgent care on 10/10/18. Outpatient follow up (3) Subtherapeutic anticoagulation Status: Acute INR 1.6 Resume Coumadin, pharmacy to dose (4) Atrial fibrillation Status: Chronic Continue home meds Qualifiers: Atrial fibrillation type: chronic Qualified Code(s): I48.2 - Chronic atrial fibrillation (5) Hypertension Status: Chronic Qualifiers: Hypertension type: essential hypertension Qualified Code(s): I10 - Essential (primary) hypertension (6) Diabetes mellitus Status: Chronic Management per primary team Patient follows with [facility] Qualifiers: Diabetes mellitus type: type 2 Diabetes mellitus middle or intermediate school principal insulin use: with middle or intermediate school principal use Diabetes mellitus complication status: with unspecified complications Qualified Code(s): E11.8 - Type 2 diabetes mellitus with unspecified complications; Z79.4 - intermediate (current) use of insulin (7) Hypothyroidism Status: Chronic Management per primary team Patient follows with [facility] Qualifiers: Hypothyroidism type: unspecified Qualified Code(s): E03.9 - Hypothyroidism, unspecified (8) HLD (hyperlipidemia) Status: Chronic Lipid panel reviewed, resume home statin Qualifiers: Hyperlipidemia type: mixed hyperlipidemia Qualified Code(s): E78.2 - Mixed hyperlipidemia History of Present Illness Chief complaint: Right sided numbness HPI: Ms. Resendiz is a 43 year old female with a PMH of Afib on Coumadin, HTN, DVT/PE with IVC filter placement, hypothyroidism, DM, and Topamax use for migraines who presented complaining of right hand and right facial numbness, tingling, right- sided weakness and slurred speech since 7:30 PM last night. Patient also reported ongoing intermittent migraines not relieved by Topamax that has not improved since receiving Toradol and Phenergan at the urgent care on 10/10/18. She is legally blind secondary to diabetes but denies any new vision changes. Of note, patient had previous TIA in August 2017 with no residual symptoms involving her left side. Upon arrival to the ED, stroke alert was called in ED and [facility] recommended TPA and CTA of head and neck. Patient and family declined TPA due to risk associated with treatment and currently being anticoagulated with Coumadin. Head CT revealed no acute intracranial abnormality. Head and neck CTA revealed no flow limiting stenosis or branch occlusion. MRI brain revealed no acute infarct or findings to explain the patient's headaches and numbness. Since that time, her symptoms have improvedbut she still reports some numbness in her right hand and decreased clean up helper banquet strength. Neurology was consulted for further recommendations. Past Med Surg Social Fam HX - Past Medical History Medical history: atrial fibrillation, diabetes, hypertension, thyroid disease Additional medical history: Pancreatitis Psychiatric history: anxiety, depression - Past Surgical History Surgical History: herniorrhaphy, orthopedic, other Additional surgical history: Paulina Filter - Social History Smoking Status: Never smoker Smokeless Tobacco Status: No Alcohol use: none Drug use: none - Family History Mother Adopted: Yes Family Member Ethnicity: Non- Living Status: Still Living Hx Family Cardiac Disorders: Yes (CHF mother) Hx Family Respiratory Disorders: No Hx Family Cancer: Yes (mother breast) Hx Family GI Disorders: No Hx Family Genitourinary Disorders: No Hx Family Endocrine Disorder: Yes (Mother thyroid dm) Hx Family Musculoskeletal Disorders: No Hx Family Neuromuscular Disorders: No Hx Family Neurologic Disorders: No Hx Family HEENT Disorders: No Hx Family Autoimmune Disorders: No Hx Family Reproductive Disorders: No Hx Family Psychosocial Disorders: No Hx Family Medical Disorders: No Sister Family Member Ethnicity: Non- Hx Family Cardiac Disorders: Yes (CHF) Medications and Allergies Duloxetine HCl [Cymbalta] 60 mg PO BID 02/19/16 [History] Ergocalciferol (VITAMIN D2) [Vitamin D2 (50,000 UNIT)] 50,000 unit PO 2XW 02/19/16 [History] Furosemide [Lasix] 20 mg PO BID PRN 02/19/16 [History] raNITIdine HCl [Zantac] 150 mg PO BID 02/19/16 [History] Cetirizine HCl [Zyrtec] 10 mg PO DAILY 05/16/17 [History] Gabapentin [Neurontin] 600 mg PO TID 05/16/17 [History] Levothyroxine [Synthroid] 150 mcg PO QAM 05/16/17 [History] Losartan Potassium [Cozaar] 50 mg PO DAILY 05/16/17 [History] Nitroglycerin [Nitrostat] 0.4 mg SL Q5M PRN 05/16/17 [History] Tizanidine HCl [Zanaflex] 4 mg PO Q12H PRN 05/16/17 [History] Topiramate [Topamax] 50 mg PO BID 05/16/17 [History] Aspirin 81 mg PO DAILY tab.chew 05/18/17 [Rx] Atorvastatin [Lipitor] 40 mg PO HS #30 tablet 05/18/17 [Rx] Warfarin [Coumadin] 5 mg PO TUFR 09/06/17 [History] Warfarin [Coumadin] 7.5 mg PO SUMOWETHSA 09/06/17 [History] Buspirone HCl [Buspar] 15 mg PO BID 10/18/18 [History] Dulaglutide [Trulicity] 1.5 mg SQ MORTENSEN 10/18/18 [History] Esomeprazole Magnesium [Nexium] 40 mg PO DAILY 10/18/18 [History] Insulin Degludec [Tresiba Flextouch U-100] 64 unit SQ DAILY 10/18/18 [History] Metformin HCl [Glucophage Xr] 1,500 mg PO HS 10/18/18 [History] OxyCODONE/APAP 5/325 [Percocet 5/325 MG] 1 each PO Q8HR PRN 10/18/18 [History] Trazodone HCl 100 - 300 mg PO HS PRN 10/18/18 [History] Allergy/AdvReac Type Severity Reaction Status Date / Time hydrocodone [From Vicodin] Allergy Swelling Verified 10/10/18 17:25 of Lip/Tongue/Throat nitrofurantoin Allergy Rash Verified 10/10/18 17:25 [From Macrobid] All Systems: The remainder of the systems were reviewed and are negative - Constitutional Constitutional ROS IM: headache(s), no chills, no fatigue, no fever(s), no lethargy, no malaise, no weakness - Eyes Eyes: bilateral: blurred vision (chronic) - Nose, Mouth, Throat Nose, mouth and throat: no dizziness, no facial pain, no sinus pain, no sinus pressure - Cardiovascular Cardiovascular ROS IM: no chest pain, no irregular heart rhythm - Respiratory Respiratory IM: no cough, no chest congestion - Gastrointestinal Gastrointestinal: no abdominal pain, no nausea, no vomiting - Genitourinary Genitourinary ROS: no urinary frequency, no urinary urgency - Musculoskeletal Musculoskeletal ROS IM: muscle weakness, numbness, tingling, no arthralgias, no back pain, no joint swelling, no limited range of motion, no muscle cramps, no neck pain - Integumentary Integumentary IM: no new lesions, no rash - Neurological Neurological ROS: abnormal speech, focal weakness, headache(s), numbness, paresthesias, sensory deficit, tingling, no confusion, no dizziness, no loss of vision, no memory loss, no syncope - Psychiatric Psychiatric general PM: anxiety, depression Physical Examination - Vital Signs Vital Signs: Initial Vital Signs Temp Pulse Resp BP Pulse Ox 98.1 F 89 22 133/83 96 10/17/18 20:01 10/17/18 20:01 10/17/18 20:01 10/17/18 20:01 10/17/18 20:01 - Constitutional General appearance: comfortable - Neurologic Sensorimotor examination: other (decreased light touch sensation ulnar region of right hand) Detailed motor examination: full strength in all major muscle groups Motor examination - right side: 3/5: clean up helper banquet, 5/5: deltoids, biceps, triceps, hip flexors, tibialis Anterior, quadriceps, toe extension (EHL), plantarflexion Motor examination - left side: 5/5: deltoids, biceps, triceps, hip flexors, clean up helper banquet, quadriceps, tibialis Anterior, toe extension (EHL), plantarflexion Detailed sensory examination: intact, light touch (decreased light touch sensation ulnar region of right hand) Reflex and gait examination: intact Reflexes: Biceps: 2+, Triceps: 2+, Brachioradialis: 2+, Patella: 2+, Achilles: 2+ Mental Status Examination: awake, alert, oriented to person, oriented to place, oriented to time, follows commands appropriately, answers questions appropriately, no agnosia, no aphasia, no aproxia, makes eye contact, follows simple commands, localizes noxious stimulation Cranial nerve examination: PERRL, EOMI, visual abad intact, sensory to face intact, mastication intact, no facial asymmetry is present (able to show teeth, symmetric), no dysarthria, hearing is intact symmetrically, flexes SCM and trapezius muscles symmetrically with full power, no atrophy or facial fasiculations present Cerebellar examination: no dysmetria, performs finger to nose and heel to pina symmetrically without ataxia, no difficulty with rapid alternating movements Results - Laboratory Findings CBC and BMP: 10/18/18 05:22 10/18/18 05:22 Abnormal lab findings: Abnormal lab results RBC 5.05 M/mcL (3.82-4.97) H 10/18/18 05:22 MCH 27.3 pg (28.0-33.3) L 10/18/18 05:22 PT 18.2 Seconds (9.4-12.1) H 10/18/18 05:22 Glucose 171 mg/dL (70-105) H 10/18/18 05:22 POC Glucose 176 mg/dL (70-99) H 10/17/18 19:58 - Diagnostic Findings Additional findings: ITS Impressions Head CT 10/17/18 20:05 IMPRESSION: No acute intracranial abnormality. D/ / Sherman Wadsworth MD / Sherman Wadsworth MD Interpreting Provider: Sherman Wadsworth MD Head CTA 10/17/18 20:56 IMPRESSION: No flow limiting stenosis or branch occlusion detected within the head or neck. Incidentally noted thyromegaly and aberrant right subclavian artery. D/ / Sharath Love MD / Sharath Love MD Interpreting Provider: Sharath Love MD Neck CTA 10/17/18 20:56 IMPRESSION: No flow limiting stenosis or branch occlusion detected within the head or neck. Incidentally noted thyromegaly and aberrant right subclavian artery. D/ / Sharath Love MD / Sharath Love MD Interpreting Provider: Sharath Love MD Brain MRI 10/18/18 01:48 IMPRESSION: No acute infarct or findings to explain the patient's headaches and numbness. D/ / Jl Oro MD / Jl Oro MD Interpreting Provider: Jl Oro MD Echocardiogram 10/18/18 07:26 Impressions: Technically challenging study due to body habitus. LVEF 60%. Indeterminate diastolic function. Normal right ventricular structure and function. No significant valvular dysfunction by Doppler. No pulmonary hypertension based on TR signal obtained. No identifiable interatrial shunt with saline injection. However, this may be limited due to image quality. Left Ventricular Wall Motion: Rest Echo Findings The mid anterior septal, mid inferior lateral and basal inferior lateral hedrick were not visualized. All other wall segments showed normal motion. Findings: Study Quality * Technically challenging due to body habitus. ECG Findings * Sinus rhythm with BBB. Left Ventricle * LVEF 60%. * Normal LV chamber size. * LV wall thickness measurements not well obtained. * Indeterminate diastolic function. Right Ventricle * Normal right ventricular structure and function. Left Atrium * Normal left atrial size. Right Atrium * Normal right atrial size. Aortic Valve * No aortic regurgitation. * Aortic valve not well visualized. * No aortic stenosis. Mitral Valve * No mitral regurgitation. * Mitral valve not well visualized. * No mitral stenosis. Tricuspid Valve * Tricuspid valve not well visualized. * No tricuspid regurgitation. Pulmonic Valve * Pulmonic valve is not well visualized. * No pulmonic stenosis. * No pulmonic regurgitation. Pulmonary Artery * Pulmonary artery not well visualized. Aorta * Normally sized aortic root. Pericardium * There is no pericardial effusion present. Interatrial Septum * No evidence of PFO with agitated saline contrast. IVC * The IVC is not well evaluated. Consult Discharge Plan - Plan Referrals: Drake Ellington MD [Primary Care Provider] - <Mitch Calixto - Last Filed: 10/18/18 18:08> Date of Encounter: 10/18/18 Time of Encounter: 17:57 Assessment and Plan (1) Paresthesias with subjective weakness Status: Acute At this juncture I am not able to place all this patient's history and her neurologic examination into a nice unified diagnosis. It is possible that she may have had a complicated migraine. On my examination I find evidence of we akness of the right clean up helper banquet as well as the left clean up helper banquet which was not identified earlier. It is possible that this could be effort related, however since me know that her MRI scan of the brain was normal in my opinion it is doubtful that this was due to a cerebral vascular event. It is possible that she could perhaps have a cervical transverse myelitis. It is also possible that some of this may be due to supratentorial matters. In any regard I did recommend to the patient that she should stay so we can obtain an MRI of the cervical spine and I also feel she needs a lumbar puncture. Further recommendations will be made after these test a been completed. Since she does have reflexes it is not likely that we are dealing with Guillain-[place] or any other type of inflammatory neuropathy. History of Present Illness HPI: The chart was reviewed, the patient was seen and examined along with the resident. I agree with his assessment as stated above. Patient has a history of atrial fibrillation, morbid obesity presenting with right facial paresthesias radiating into the right upper extremity and right lower extremity. INR was subtherapeutic upon admission. MRI scan of the brain was negative for evidence of acute infarct. She was initially evaluated by the [facility] telemetry stroke team as stated above and declined TPA. CT of the head and neck were both negative. The patient states that she had a mild headache at admission however it was not a migraine based on her previous migraine occurrences. All Systems: The remainder of the systems were reviewed and are negative Review of Systems: The balance of the systems review is negative. Physical Examination - Vital Signs Vital Signs: Initial Vital Signs Temp Pulse Resp BP Pulse Ox 98.1 F 89 22 133/83 96 10/17/18 20:01 10/17/18 20:01 10/17/18 20:01 10/17/18 20:01 10/17/18 20:01 - Neurologic Detailed motor examination: other (Patient has weakness of the right and left upper extremity clean up helper banquet. She has normal strength bulk and tone of both lower extremities. She has normal tone of both upper extremities.) Reflexes: Biceps: 2+ (Symmetrically), Triceps: 2+ ( symmetrically), Brachior adialis: 2+ (Symmetrically), Patella: 2+ (Symmetrically), Achilles: 1+ (Symmetrically) Results - Laboratory Findings CBC and BMP: 10/18/18 05:22 10/18/18 05:22 Abnormal lab findings: Abnormal lab results RBC 5.05 M/mcL (3.82-4.97) H 10/18/18 05:22 MCH 27.3 pg (28.0-33.3) L 10/18/18 05:22 PT 18.2 Seconds (9.4-12.1) H 10/18/18 05:22 Glucose 171 mg/dL (70-105) H 10/18/18 05:22 POC Glucose 176 mg/dL (70-99) H 10/17/18 19:58 Triglycerides 187 mg/dL (< 150) H 10/18/18 05:22 VLDL Cholesterol, Calc 37 mg/dL (< 31) H 10/18/18 05:22
[2018-10-18] MEDS ORDERED: Perflutren Lipid Microsphere 1.3 ML in 0.9 % Sodium Chloride 8.7 ML IVP ONE (11:41)
--- NOTE | 2018-10-18 11:54 | Internal Med Progress Note ---
Hospitalist Progress Note - Encounter Date of Encounter: 10/18/18 Time of Encounter: 13:06 - Subjective Interval History: Patient seen and examined at bedside. Numbness right side of face and right hand improving but still present. Complaints of headache. Denies any chest pain, shortness of breath, nausea, vomiting, diarrhea. - Exam Vitals: Temp Pulse Resp BP Pulse Ox 97.9 F 108 16 117/78 97 10/18/18 06:25 10/18/18 08:08 10/18/18 08:08 10/18/18 08:08 10/18/18 08:08 Exam: General: In no acute distress. Conversant. Obese. Respiratory exam: CTAB. no accessory muscle use, rales, rhonchi, wheezes Cardiovascular exam: RRR, +S1, +S2. no murmur, gallop, rubs. GI/Abdominal exam: Non-tender, Non-distended, normal bowel sounds, soft, no peritoneal signs. Extremities exam: full ROM, no pedal edema, warm, pulses palpable in b/l lower extremities. no calf tenderness Neurological exam: Patient not able to smile raise her eyebrow. Able to puff cheeks. Able to speak without difficulty but complains numbness on the right side of her cheek and lips. Rt upper and lower extremity strength 4/5 compared to left. Numbness involving right hand up to the wrist. Some numbness on the right lateral thigh. Skin exam: No skin rash, ulcer, purpura or ecchymosis. Pych: Flat affect. Cannot smile on command. - Assessment and Plan (1) Stroke-like symptom Current Visit: Yes Status: Acute (2) Diabetes mellitus Current Visit: Yes Status: Chronic (3) Hypertension Current Visit: Yes Status: Acute (4) Subtherapeutic anticoagulation Current Visit: Yes Status: Acute (5) Hyponatremia Current Visit: Yes Status: Acute - Summary of Assessment and Plan Summary of Assessment and Plan: Stroke-like symptom - Numbness on the right hand and and right side of the face. Slight improvement in her symptoms. - CT and MRI unremarkable. CTA noted thyromegaly and aberrant rt subclavian - Initially tPA was recommended, however patient choose not to. - f/u PT/OT - f/u ECHO - Receive aspirin in ER. c/w daily aspirin - c/w atorvastatin - Neurology consulted. Hypothyrodism - Add TSH morning labs. Subtherapeutic anticoagulation for Afib - c/w coumadin, pharmacy to dose. AFib - currently in sinus rhythm - c/u ECHO - c/w coumadin Hypertension - resume home mdyg Diabetes mellitus - continue home medications. - Accucheck q6. - Low dose sliding scale insulin q6. Hyponatremia - resolved - Time Spent with Patient Total time spent is greater than 50% in coordination of care (as documented) at patient's floor/unit and/or counseling patient: Internal Medicine: Result - Labs CBC & Chem 7: 10/18/18 05:22 10/18/18 05:22 Labs: Short CBC 10/17/18 10/18/18 Range/Units 20:10 05:22 WBC 9.9 7.8 (4.3-11.1) K/mcL Hgb 15.3 13.8 D (11.5-15.4) g/dL Hct 46.3 H 42.2 (35.3-44.9) % Plt Count 215 158 (140-400) K/mcL Neutrophils # 4.6 (1.6-8.9) K/mcL BMP 10/17/18 10/18/18 20:10 05:22 Sodium 133 L 136 Potassium 4.1 3.9 Chloride 98 102 Carbon Dioxide 27 24 BUN 14 13 Creatinine 0.86 0.71 Glucose 189 H 171 H Calcium 9.8 9.0 Cardiac Enzymes 10/17/18 Range/Units 20:10 Troponin I < 0.03 (< 0.04) ng/mL - ABG Interpretation ABG results: PT/INR, D-dimer PT 18.2 Seconds (9.4-12.1) H 10/18/18 05:22 - Impressions Impressions Head CT 10/17/18 20:05 IMPRESSION: No acute intracranial abnormality. D/ / Sherman Wadsworth MD / Sherman Wadsworth MD Interpreting Provider: Sherman Wadsworth MD Head CTA 10/17/18 20:56 IMPRESSION: No flow limiting stenosis or branch occlusion detected within the head or neck. Incidentally noted thyromegaly and aberrant right subclavian artery. D/ / Sharath Love MD / Sharath Love MD Interpreting Provider: Sharath Love MD Neck CTA 10/17/18 20:56 IMPRESSION: No flow limiting stenosis or branch occlusion detected within the head or neck. Incidentally noted thyromegaly and aberrant right subclavian artery. D/ / Sharath Love MD / Sharath Love MD Interpreting Provider: Sharath Love MD Brain MRI 10/18/18 01:48 IMPRESSION: No acute infarct or findings to explain the patient's headaches and numbness. D/ / Jl Oro MD / Jl Oro MD Interpreting Provider: Jl Oor MD - VTE Reasons for not Prescribing Prophylaxis: Not indicated-Anticoagulated or INR therapeutic Consult Discharge Plan - Plan Referrals: Drake Ellington MD [Primary Care Provider] - (2) Diabetes mellitus Qualifiers: Diabetes mellitus type: type 2 Diabetes mellitus termite treater insulin use: with jail use Diabetes mellitus complication status: with unspecified complications Qualified Code(s): E11.8 - Type 2 diabetes mellitus with unspecified complications; Z79.4 - intermediate manager (current) use of insulin (3) Hypertension Qualifiers: Hypertension type: unspecified Qualified Code(s): I10 - Essential (primary) hypertension
[2018-10-18 12:05] LABS: Cholesterol 164 mg/dL (< 200); HDL Cholesterol 41 mg/dL (40-59); LDL Cholesterol,Calculated 86 mg/dL (0-99); Triglycerides 187 mg/dL (< 150)
[2018-10-18] MEDS ORDERED: tiZANidine 4 MG TABLET PO PRN (13:18)
[2018-10-18 13:49] LABS: Thyroid Stimulating Hormone 5.016 mcIU/mL (0.340-5.600)
[2018-10-18] MEDS ORDERED: Aspirin Enteric Coated 81 MG Tablet PO SCH (14:15)
[2018-10-18] MEDS ORDERED: Gabapentin 300 MG CAPSULE PO SCH (15:00)
[2018-10-18] MEDS ORDERED: *HR* Metformin 500 MG TABLET PO SCH (17:00)
[2018-10-18] MEDS ORDERED: Warfarin perPT PO PRN (18:00)
[2018-10-18] MEDS ORDERED: *HR* Warfarin 7.5 MG TABLET PO ONE (18:00)
[2018-10-18] MEDS ORDERED: Topiramate 25 MG TABLET PO SCH (21:00)
--- NOTE | 2018-10-19 06:38 | Discharge Summary ---
- NOTES TO OUTPATIENT PROVIDER Notes to Outpatient Provider: Patient need Cervical MRI to further evaluate her symptoms. Left AMA without the testing. Needs adjustment of coumadin to bringe to therapeutic INR. Date of Encounter: 10/19/18 Time of Encounter: 18:35 - Discharge Diagnosis (1) Stroke-like symptom Priority: Primary Status: Acute (2) Diabetes mellitus Priority: Secondary Status: Chronic Qualifiers: Diabetes mellitus type: type 2 Diabetes mellitus ferry terminal agent insulin use: with ferry terminal agent use Diabetes mellitus complication status: with unspecified complications Qualified Code(s): E11.8 - Type 2 diabetes mellitus with unspecified complications; Z79.4 - [facility] (current) use of insulin (3) Hypertension Priority: Secondary Status: Acute Qualifiers: Hypertension type: unspecified Qualified Code(s): I10 - Essential (primary) hypertension (4) Subtherapeutic anticoagulation Priority: Secondary Status: Acute (5) Hyponatremia Priority: Primary Status: Acute (6) Complicated migraine Priority: Secondary Status: Acute (7) Atrial fibrillation Priority: Secondary Status: Chronic Qualifiers: Atrial fibrillation type: chronic Qualified Code(s): I48.2 - Chronic atrial fibrillation (8) HLD (hyperlipidemia) Priority: Secondary Status: Chronic Qualifiers: Hyperlipidemia type: mixed hyperlipidemia Qualified Code(s): E78.2 - Mixed hyperlipidemia (9) HTN (hypertension) Priority: Secondary Status: Chronic Qualifiers: Hypertension type: essential hypertension Qualified Code(s): I10 - Essenti al (primary) hypertension (10) Hypothyroidism Priority: Secondary Status: Chronic Qualifiers: Hypothyroidism type: unspecified Qualified Code(s): E03.9 - Hypothyroidism, unspecified (11) Morbid obesity Priority: Secondary Status: Chronic Hospital course: Ms. Resendiz is a 43 year old female with past medical history of A. fib, hypertension, DVT, PE with filter, hypo-thyroidism, anxiety and depression came in with right-sided hand and facial numbness and tingling. Head CT was unremarkable. [facility] to the neurology recommended tPA, CTA of head and neck. CTA did not show any occlusion or stenosis. Neurology recommended tPA however patient refused that after discussion as she was on Coumadin for A. fib. INR was subtherapeutic and not an absolute contraindication however patient refused still. MRI was ordered which did not show any acute stroke. Neurology was consulted with outpatient probably had complicated migraine however needed cervical pathology to be ruled out with MRI of the neck. Patient left AMA without getting further testing. - Time Spent with Patient Total time spent providing and/or coordinating discharge services: - Discharge Medications Home Medications: Duloxetine HCl [Cymbalta] 60 mg PO BID 02/19/16 [History] Ergocalciferol (VITAMIN D2) [Vitamin D2 (50,000 UNIT)] 50,000 unit PO 2XW 02/19/16 [History] Furosemide [Lasix] 20 mg PO BID PRN 02/19/16 [History] raNITIdine HCl [Zantac] 150 mg PO BID 02/19/16 [History] Cetirizine HCl [Zyrtec] 10 mg PO DAILY 05/16/17 [History] Gabapentin [Neurontin] 600 mg PO TID 05/16/17 [History] Levothyroxine [Synthroid] 150 mcg PO QAM 05/16/17 [History] Losartan Potassium [Cozaar] 50 mg PO DAILY 05/16/17 [History] Nitroglycerin [Nitrostat] 0.4 mg SL Q5M PRN 05/16/17 [History] Tizanidine HCl [Zanaflex] 4 mg PO Q12H PRN 05/16/17 [History] Topiramate [Topamax] 50 mg PO BID 05/16/17 [History] Aspirin 81 mg PO DAILY tab.chew 05/18/17 [Rx] Atorvastatin [Lipitor] 40 mg PO HS #30 tablet 05/18/17 [Rx] Warfarin [Coumadin] 5 mg PO TUFR 09/06/17 [History] Warfarin [Coumadin] 7.5 mg PO SUMOWETHSA 09/06/17 [History] Buspirone HCl [Buspar] 15 mg PO BID 10/18/18 [History] Dulaglutide [Trulicity] 1.5 mg SQ MORTENSEN 10/18/18 [History] Esomeprazole Magnesium [Nexium] 40 mg PO DAILY 10/18/18 [History] Insulin Degludec [Tresiba Flextouch U-100] 64 unit SQ DAILY 10/18/18 [History] Metformin HCl [Glucophage Xr] 1,500 mg PO HS 10/18/18 [History] OxyCODONE/APAP 5/325 [Percocet 5/325 MG] 1 each PO Q8HR PRN 10/18/18 [History] Trazodone HCl 100 - 300 mg PO HS PRN 10/18/18 [History] Allergies/Adverse Reactions: Allergy/AdvReac Type Severity Reaction Status Date / Time hydrocodone [From Vicodin] Allergy Swelling Verified 10/10/18 17:25 of Lip/Tongue/Throat nitrofurantoin Allergy Rash Verified 10/10/18 17:25 [From Macrobid] Date of admission: 10/17/18 23:39 Primary care physician: Drake Ellington MD Consults: 10/18/18 01:42 Consult to Occupational Therapy [CONS] Routine Comment: Evaluate, develop and implement POC Reason for Consult: Stroke like symptoms. Does patient have active BEDREST order?: No Is patient medically & hemodynamically stable?: Yes Consult to Physical Therapy [CONS] Routine Comment: Evaluate, develop and implement POC Reason for Consult: Stroke like symptoms. Does patient have active BEDREST order?: No Is patient medically & hemodynamically stable?: Yes Consult to Speech Therapy [CONS] Routine Comment: Evaluate, develop and implement POC Reason for Consult: Stroke like symptoms. Call Completed: No 10/18/18 10:57 Consult to Neurology [CONS] Routine Consulting Provider: Neurology [facility] Reason for Consult: stroke Call Completed: Yes Discharging clinician: Shilo Mahajan - Constitutional Vitals: Temp Pulse Resp BP Pulse Ox 97.9 F 108 16 117/78 97 10/18/18 06:25 10/18/18 08:08 10/18/18 08:08 10/18/18 08:08 10/18/18 08:08 Exam: n/a - Patient Status Disposition: Left Against Medical Advice Condition: Fair - Discharge Instructions Follow Up With: Drake Ellington MD [Primary Care Provider] - - VTE Reasons for not Prescribing Prophylaxis: Not indicated-Anticoagulated or INR therapeutic
[2018-10-19] MEDS ORDERED: INSULIN DEGLUDEC 64 UNIT SQ SCH (09:00)
[2018-10-19] MEDS ORDERED: Insulin DETEMIR 100 UNIT/ML X5UNITS SQ SCH (09:00)
[2018-10-21] MEDS ORDERED: Dulaglutide [Trulicity] 1.5 MG SQ SCH (13:18)
== END 2018-10-18 17:56 | disposition left against medical advice (07) ==
LOC: 2NENU 19:55 → EMEROOARM 19:55 → SUATTDRO 23:39 → 2NENU 10-18 00:43
PROVIDERS: ADMIT Family Medicine; ATTEND Internal Medicine

== ENCOUNTER 2020-12-27 23:56 | Observation (INO) ==
[2020-12-28] MEDS ORDERED: Isovue-370 500 ML BOTTLE IVP ONE (00:03)
[2020-12-28] MEDS ORDERED: GI Cocktail 40 ML EACH PO ONE (00:03)
[2020-12-28] MEDS ORDERED: *HR* FentaNYL (PF) 100 MCG/2 ML VIAL IVP ONE (00:04)
[2020-12-28 00:43] LABS: Bacteria,Urine Few per hpf (None-Few); Bilirubin,Urine Negative (Negative); Blood,Urine Negative (Negative); Clarity,Urine Clear (Clear); Color,Urine Light-Yellow (Yellow); Glucose,Urine (UA) Normal (Normal); Ketones,Urine Negative (Negative); Leukocyte Esterase,Urine Negative (Negative); Mucus,Urine Few per lpf (None-Few); Nitrite,Urine Negative (Negative); PH,Urine 5.5 pH Units (5.0-8.0); Protein,Urine Trace mg/dL (Neg-Trace); RBC,Urine 0-3 per hpf (0-3); Specific Gravity,Urine 1.024 (1.010-1.025); Squamous Epithelial Cell,Urine Few per hpf (None-Few); Urobilinogen,Urine Normal (Normal)
[2020-12-28 00:43] LABS: Basophils % 0.5 %; Eosinophils # 0.2 K/mcL (0.0-0.6); Eosinophils % 1.9 %; Hematocrit 38.6 % (35.3-44.9); Hemoglobin 11.6 g/dL (11.5-15.4); Immature Granulocytes % 0.3 % (0-4); Lymphocytes # 2.5 K/mcL (0.6-4.6); Lymphocytes % 32.8 %; Mean Corpuscular HGB Conc 30.1 g/dL (31.6-35.5); Mean Corpuscular Volume 79.8 fL (83.0-100.0); Mean Platelet Volume 11.6 fL (9.4-12.4); Monocytes # 0.6 K/mcL (0.0-1.3); Monocytes % 7.1 %; Neutrophils # 4.4 K/mcL (1.6-8.9); Platelet Count 212 K/mcL (140-400); Red Blood Count 4.84 M/mcL (3.82-4.97); Red Cell Distribution Width 16.5 % (11.5-14.5); Segmented Neutrophils % 57.4 %; White Blood Count 7.7 K/mcL (4.3-11.1)
[2020-12-28 00:47] LABS: INR 2.1; Prothrombin Time 23.6 Seconds (9.4-12.1)
[2020-12-28 01:05] LABS: Alanine Aminotransferase 13 Units/L (7-52); Albumin 3.7 g/dL (3.5-5.7); Albumin/Globulin Ratio 1.1 (1.1-2.2); Alkaline Phosphatase 104 Units/L (34-104); Aspartate Amino Transferase 13 Units/L (13-39); BUN/Creatinine Ratio 21 (6-26); Bilirubin,Indirect 0.3 mg/dL (0.0-1.0); Bilirubin,Total 0.3 mg/dL (0.3-1.0); Blood Urea Nitrogen 15 mg/dL (6-20); Calcium 9.5 mg/dL (8.6-10.3); Carbon Dioxide 25 mEq/L (23-29); Chloride 104 mEq/L (98-107); Globulin 3.5 g/dL (2.4-3.5); Glucose 100 mg/dL (70-105); Lipase 30 Units/L (11-82); Osmolality,Calculated 285 (280-300); Sodium 137 mEq/L (136-145); Total Protein 7.2 g/dL (6.4-8.9); Troponin I < 0.03 ng/mL (< 0.04); eGFR For African Americans > 60 (> 60); eGFR For Non-African Americans > 60 (> 60)
[2020-12-28] MEDS ORDERED: Acetaminophen 325 MG TABLET PO PRN (02:56)
[2020-12-28] MEDS ORDERED: Ondansetron 4 MG/2 ML VIAL IVP PRN (02:56)
[2020-12-28] MEDS ORDERED: Naloxone 0.4 MG/ML INJ IVP PRN (02:56)
[2020-12-28] MEDS ORDERED: D5% in Water 1,000 ML IVC PRN (03:00)
[2020-12-28] MEDS ORDERED: Dextrose Gel 15 GM/37.5 ML TUBE PO PRN ×2 (03:00)
[2020-12-28] MEDS ORDERED: *HR* Dextrose 50 % in Water (Vial) 50 ML VIAL IVP PRN (03:00)
[2020-12-28] MEDS: Insulin LISPRO 300 UNITS/3 ML VIAL SUBQ SCH ×2 (05:19→12:01)
[2020-12-28] MEDS ORDERED: Regadenoson 0.4 MG/5 ML SYRINGE IVP ONE (09:50)
[2020-12-28] MEDS ORDERED: Gabapentin 400 MG CAPSULE PO SCH (15:00)
[2020-12-28 15:03] VITALS: BP 109/73
[2020-12-28] MEDS ORDERED: FLU Vac QV 20-21 (6Month+)/PF 0.5 ML SYRINGE IM ONE (15:19)
[2020-12-28] MEDS ORDERED: *HR* Warfarin 7.5 MG TABLET PO ONE (18:00)
[2020-12-28] MEDS ORDERED: Warfarin perPT PO PRN (18:00)
== END 2020-12-28 16:54 | disposition home or self-care (01) ==
LOC: EMEROOARM 23:56 → 3BNU 23:56 → SUATTDRO 12-28 03:01 → 3BNU 12-28 03:43
PROVIDERS: ADMIT Internal Medicine; ATTEND Internal Medicine